=== PATIENT | male | born 1970 | race Caucasian/White ===

== ENCOUNTER 2018-08-14 00:01 | Emergency (ER) | payer BC, MEDICARE, OTHER ==
[2018-08-14] MEDS: NS 1,000 ML IV ×4 (01:00→02:00)
[2018-08-14] MEDS: HumuLIN R (REGULAR) INSULIN (NovoLIN R) **100U/ML** PER UNIT IV ×4 (01:15→02:26)
[2018-08-14 01:50] LABS: ANION GAP 13 MEQ/L (8-16); BLOOD UREA NITROGEN 21 MG/DL (7-18); CALCIUM LEVEL 8.7 MG/DL (8.5-10.1); CARBON DIOXIDE LEVEL 22 MEQ/L (21-32); CHLORIDE LEVEL 94 MEQ/L (98-107); CREATININE FOR GFR 1.41 MG/DL (0.70-1.30); GLOMERULAR FILTRATION RATE 56.6 (>56); GLUCOSE, FASTING 732 MG/DL (70-100); POTASSIUM SERUM 4.2 MEQ/L (3.5-5.1); SODIUM LEVEL 129 MEQ/L (136-145)
[2018-08-14 02:13] LABS: BEDSIDE GLUCOSE 400 MG/DL (70-105)
[2018-08-14 03:02] LABS: BEDSIDE GLUCOSE 191 MG/DL (70-105)
[2018-08-16 09:22] LABS: BEDSIDE GLUCOSE > 600 MG/DL (70-105)
== END 2018-08-14 03:12 | disposition home or self-care (01) ==
LOC: M ED 00:01
DX: E10.65 Type 1 diabetes mellitus with hyperglycemia (principal); I10 Essential (primary) hypertension; Z79.4 Long term (current) use of insulin; Z88.2 Allergy status to sulfonamides
CPT/HCPCS: 80048

== ENCOUNTER 2020-06-21 01:50 | Emergency (ER) | payer MEDICARE, BC, OTHER ==
[2020-06-21] MEDS ORDERED: ACETAMINOPHEN 325 MG TAB As Ordered ONE (23:18)
[2020-06-22] MEDS ORDERED: PROHANCE 279.3MG/ML 5ML VIAL As Ordered ONE (03:25)
[2020-06-22] MEDS ORDERED: PROHANCE 279.3MG/ML 15ML VIAL As Ordered ONE (03:25)
[2020-06-22] MEDS ORDERED: ONDANSETRON 4MG/2ML VIAL As Ordered ONE (08:01)
[2020-08-05 18:08] LABS: BASO % 0.3 % (0.0-1.0); EOS % 0.6 % (0.0-3.0); HEMATOCRIT 52.4 % (42.0-52.0); HEMOGLOBIN 18.2 g/dl (13.5-17.5); LYMPH # 0.5 10^3/uL (1.5-5.0); MEAN CORPUSCULAR HGB CONC 34.7 g/dl (32.0-36.5); MEAN CORPUSCULAR VOLUME 86.3 fl (80.0-96.0); MONO # 0.5 10^3/uL (0.0-0.8); MONO % 14.7 % (0.0-5.0); NEUTROPHILS # 2.4 10^3/uL (1.5-8.5); NEUTROPHILS % 69.1 % (36.0-66.0); RED BLOOD COUNT 6.07 10^6/uL (4.30-6.10); WHITE BLOOD COUNT 3.5 10^3/uL (4.0-10.0)
[2020-08-05 18:09] LABS: PLATELET COUNT, AUTOMATED 96 10^3/uL (150-450)
[2020-08-05 18:11] LABS: ERYTHROCYTE SEDIMENTATION RATE 3 mm/hr (0-20)
[2020-09-10 17:16] LABS: BLOOD UREA NITROGEN 10 MG/DL (7-18); CALCIUM LEVEL 8.4 MG/DL (8.5-10.1); CARBON DIOXIDE LEVEL 24 MEQ/L (21-32); CHLORIDE LEVEL 103 MEQ/L (98-107); CREATININE FOR GFR 1.16 MG/DL (0.70-1.30); GLOMERULAR FILTRATION RATE > 60.0 (>56); GLUCOSE, FASTING 159 MG/DL (70-100); POTASSIUM SERUM 3.7 MEQ/L (3.5-5.1); SODIUM LEVEL 136 MEQ/L (136-145)
[2020-09-10 17:17] LABS: ALBUMIN 3.9 GM/DL (3.2-5.2); ALT/SGPT 50 U/L (12-78); BILIRUBIN,DIRECT 0.4 MG/DL (0.0-0.2); BILIRUBIN,TOTAL 1.4 MG/DL (0.2-1.0); C REACTIVE PROTEIN QUANTITATIV 6.03 MG/DL (0.00-0.30); TOTAL PROTEIN 7.9 GM/DL (6.4-8.2)
== END 2020-06-22 10:30 | disposition home or self-care (01) ==
LOC: M ED 01:50
DX: F32.9 Major depressive disorder, single episode, unspecified (principal); Z91.14 Patient's other noncompliance with medication regimen; E11.9 Type 2 diabetes mellitus without complications; K75.81 Nonalcoholic steatohepatitis (NASH); F90.9 Attention-deficit hyperactivity disorder, unspecified type; B20 Human immunodeficiency virus [HIV] disease; Z86.14 Personal history of Methicillin resistant Staphylococcus aureus infection; Z79.899 Other long term (current) drug therapy
CPT/HCPCS: 71046; 72156; 80048; 80076; 85025; 85049; 85055; 85652; 86140; 87040; 87486; 87581; 87633; 87798; 96374; 99284; A9576; J2405

== ENCOUNTER 2021-07-03 02:52 | Emergency (ER) | payer MEDICARE, OTHER ==
[2021-07-03 02:53] VITALS: BP 118/78
== END 2021-07-03 04:32 | disposition left against medical advice (07) ==
LOC: M ED 02:52
DX: Z53.29 Procedure and treatment not carried out because of patient's decision for other reasons (principal)

== ENCOUNTER 2021-12-21 13:52 | Emergency (ER) | payer MEDICARE, OTHER ==
[~2021-12-21] VITALS: Ht 180.3 cm; Wt 101.0 kg
[2021-12-21] MEDS ORDERED: ARIP1TAB4 (14:19)
[2021-12-21] MEDS ORDERED: FREE1KIT5 (14:19)
[2021-12-21] MEDS ORDERED: VENL75CA47 (14:19)
[2021-12-21] MEDS ORDERED: LORazepam 2 MG/ML VIAL IV STA ×2 (14:38→15:35)
[2021-12-21 16:31] VITALS: BP 178/94
== END 2021-12-21 17:05 | disposition home or self-care (01) ==
LOC: EDBD 13:52 → M ED 13:52
DX: F15.10 Other stimulant abuse, uncomplicated (principal); E11.9 Type 2 diabetes mellitus without complications; B20 Human immunodeficiency virus [HIV] disease; Z88.2 Allergy status to sulfonamides; Z79.899 Other long term (current) drug therapy
CPT/HCPCS: 93041; 94760; 96374; 99285; J2060

== ENCOUNTER 2022-10-17 20:22 | Inpatient (IN) | payer OTHER, MEDICARE ==
[~2022-10-17] VITALS: Ht 177.8 cm; Wt 102.4 kg
[~2022-10-17 20:22] MED LIST: ARIP1TAB4; FREE1KIT5; VENL75CA47
[2022-10-17] MEDS ORDERED: LORazepam 2 MG/ML VIAL As Ordered ONE (20:25)
[2022-10-17] MEDS ORDERED: PROPOFOL 1,000 MG/100 ML VIAL As Ordered ONE (20:36)
[2022-10-17] MEDS ORDERED: ROCURONIUM BROMIDE 50MG/5ML VIAL IV ONE (20:40)
[2022-10-17] MEDS ORDERED: ETOMIDATE INJ 20MG/10ML VIAL IV ONE (20:40)
[2022-10-17] MEDS ORDERED: propofoL 1,000 MG in IV 1 EA IV SCH (20:40)
[2022-10-17] MEDS ORDERED: levETIRAcetam INJection 4,500 MG in D5W 100 ML IV ONE (20:45)
[2022-10-17 20:58] LABS: BASO # 0.1 10^3/uL (0.0-0.2); BASO % 0.4 % (0.0-1.0); EOS % 0.1 % (0.0-3.0); HEMATOCRIT 40.2 % (42.0-52.0); HEMOGLOBIN 12.8 g/dl (13.5-17.5); LYMPH # 1.9 10^3/uL (1.5-5.0); LYMPH % 11.8 % (24.0-44.0); MEAN CORPUSCULAR HEMOGLOBIN 26.6 pg (27.0-33.0); MEAN CORPUSCULAR HGB CONC 31.8 g/dl (32.0-36.5); MEAN CORPUSCULAR VOLUME 83.4 fl (80.0-96.0); MONO % 10.1 % (2.0-8.0); NEUTROPHILS # 11.8 10^3/uL (1.5-8.5); NEUTROPHILS % 75.7 % (36.0-66.0); PLATELET COUNT, AUTOMATED 405 10^3/uL (150-450); RED BLOOD COUNT 4.82 10^6/uL (4.30-6.10); WHITE BLOOD COUNT 15.7 10^3/uL (4.0-10.0)
[2022-10-17 21:00] LABS: ABG BASE EXCESS -5.4 (-2.0-2.0); ABG HCO3 19.2 MEQ/L (22.0-26.0); ABG O2 SATURATION 99.4 % (95.0-99.0); ABG PARTIAL PRESSURE CO2 34.9 mmHg (35.0-45.0); ABG STANDARD HCO3 20.1 MEQ/L (22.0-26.0); ABG TOTAL CO2 20.3 MEQ/L (22.0-29.0); ABG pH (ARTERIAL) 7.359 UNITS (7.350-7.450)
[2022-10-17] MEDS ORDERED: D5W IV ONE (21:00)
[2022-10-17] MEDS ORDERED: LEVETIRACETAM IV ONE (21:00)
[2022-10-17 21:09] LABS: INR 1.29; PARTIAL THROMBOPLASTIN TIME 25.1 SECONDS (24.8-34.2); PROTHROMBIN TIME 16.4 SECONDS (12.5-14.5)
[2022-10-17 21:20] LABS: ETHYL ALCOHOL (ETHANOL) 0.003 % (0.000-0.010)
[2022-10-17 21:21] LABS: ACETAMINOPHEN LEVEL < 2.0 UG/ML (10.0-20.0); BILIRUBIN,DIRECT 0.2 MG/DL (<0.4); SALICYLATE LEVEL < 3.0 MG/DL (<30)
[2022-10-17 21:25] LABS: AMPHETAMINES LEVEL URINE NEGATIVE (NEGATIVE); BARBITURATES URINE NEGATIVE (NEGATIVE); BENZODIAZEPINES URINE NEGATIVE (NEGATIVE); METHADONE URINE NEGATIVE (NEGATIVE); PHENCYCLIDINE URINE NEGATIVE (NEGATIVE)
[2022-10-17 21:26] LABS: ALKALINE PHOSPHATASE 173 U/L (46-116); ALT/SGPT 23 U/L (7.0-40); AST/SGOT 20 U/L (<34); BILIRUBIN,TOTAL 0.3 MG/DL (0.3-1.2); BLOOD UREA NITROGEN 9 MG/DL (9-23); CALCIUM LEVEL 8.9 MG/DL (8.5-10.1); CANNABINOIDS URINE NEGATIVE (NEGATIVE); CARBON DIOXIDE LEVEL 18 MMOL/L (20-31); CHLORIDE LEVEL 96 MMOL/L (98-107); CREATININE FOR GFR 0.77 MG/DL (0.70-1.30); GLOMERULAR FILTRATION RATE > 60.0 (>56); GLUCOSE, FASTING 697 MG/DL (60-100); POTASSIUM SERUM 3.6 MMOL/L (3.5-5.1); SODIUM LEVEL 136 MMOL/L (136-145); TOTAL PROTEIN 7.2 G/DL (5.7-8.2)
[2022-10-17 21:28] LABS: COCAINE METABOLITE URINE POSITIVE (NEGATIVE); OPIATES URINE POSITIVE (NEGATIVE)
[2022-10-17] MEDS ORDERED: ROCURONIUM BROMIDE 50MG/5ML VIAL IV PRN (21:40)
[2022-10-17 21:42] LABS: MONO # 1.6 10^3/uL (0.0-0.8)
[2022-10-17] MEDS ORDERED: HumuLIN R (REGULAR) INSULIN (NovoLIN R) **100U/ML** PER UNIT IV ONE (22:00)
[2022-10-17 22:01] LABS: RSV AMPLIFICATION NEGATIVE (NEGATIVE)
[2022-10-17] MEDS ORDERED: NS 2,640 ML in IV 1 EA IV ONE (22:30)
[2022-10-17 22:41] LABS: APPEARANCE, CSF CLEAR (CLEAR); COLOR, CSF COLORLESS (COLORLESS); CSF TUBE# CELL CNT TUBE 1; CSF TUBE# CELL CNT TUBE 4
[2022-10-17 23:02] LABS: CSF TUBE# TP TUBE 3; TOTAL PROTEIN,CSF 51.8 MG/DL (15-45)
[2022-10-17 23:04] LABS: CSF TUBE# GLU TUBE 3
[2022-10-17] MEDS: propofoL 1,000 MG in IV 1 EA IV SCH (23:40)
[2022-10-17] MEDS ORDERED: HOME MED LIST COMPLETE! XX SCH (23:50)
[2022-10-17] MEDS ORDERED: INSULIN REGULAR IN 0.9 % NACL 100 UNIT in IV 1 EA IV SCH ×2 (23:50)
[2022-10-17] MEDS ORDERED: KCL 20MEQ IN 0.45NS 1000ML 1,000 ML IV SCH (23:50)
[2022-10-18] VITALS (44 sets, daily range): BP systolic 91–120; BP diastolic 52–72
[2022-10-18] MEDS: PIPERACILLIN/TAZOBACTAM SOD 4.5 GM in D5W MINI-BAG PLUS 50 ML IV SCH ×4 (00:47→18:33)
[2022-10-18 01:01] LABS: ABG BASE EXCESS -0.1 (-2.0-2.0); ABG HCO3 23.8 MEQ/L (22.0-26.0); ABG O2 SATURATION 99.2 % (95.0-99.0); ABG PARTIAL PRESSURE CO2 36.3 mmHg (35.0-45.0); ABG PARTIAL PRESSURE O2 215.7 mmHg (75.0-100.0); ABG STANDARD HCO3 24.5 MEQ/L (22.0-26.0); ABG TOTAL CO2 24.9 MEQ/L (22.0-29.0); ABG pH (ARTERIAL) 7.435 UNITS (7.350-7.450)
[2022-10-18] MEDS: propofoL 1,000 MG in IV 1 EA IV SCH (01:37)
[2022-10-18] MEDS: INSULIN IV RATE CHANGE DOCUMENTATION ML/HR XX SCH ×5 (04:14→11:05)
[2022-10-18 04:33] LABS: BLOOD UREA NITROGEN 10 MG/DL (9-23); CALCIUM LEVEL 8.9 MG/DL (8.5-10.1); CARBON DIOXIDE LEVEL 13 MMOL/L (20-31); CHLORIDE LEVEL 96 MMOL/L (98-107); GLOMERULAR FILTRATION RATE > 60.0 (>56); GLUCOSE, FASTING 654 MG/DL (60-100); PHOSPHORUS LEVEL 7.1 MG/DL (2.5-4.9); POTASSIUM SERUM 3.9 MMOL/L (3.5-5.1); SODIUM LEVEL 135 MMOL/L (136-145)
[2022-10-18] MEDS: MIDAZOLAM 100MG/100ML-0.9%NACL 100 MG in IV 1 EA IV SCH (04:45)
[2022-10-18] MEDS ORDERED: MIDAZOLAM INJ 2MG/2ML VIAL IV PRN (05:25)
[2022-10-18] MEDS ORDERED: NS 500 ML IV ONE (05:25)
[2022-10-18 06:03] LABS: ABG BASE EXCESS 2.2 (-2.0-2.0); ABG HCO3 27.1 MEQ/L (22.0-26.0); ABG PARTIAL PRESSURE CO2 43.5 mmHg (35.0-45.0); ABG PARTIAL PRESSURE O2 154.3 mmHg (75.0-100.0); ABG STANDARD HCO3 26.5 MEQ/L (22.0-26.0); ABG TOTAL CO2 28.5 MEQ/L (22.0-29.0); ABG pH (ARTERIAL) 7.413 UNITS (7.350-7.450)
[2022-10-18] MEDS: HEPARIN SOD (PORCINE) 5000UNITS/ML 1ML VIAL/SYRINGE SC SCH ×3 (06:07→22:03)
[2022-10-18 06:34] LABS: BLOOD UREA NITROGEN 9 MG/DL (9-23); CALCIUM LEVEL 8.2 MG/DL (8.5-10.1); CARBON DIOXIDE LEVEL 28 MMOL/L (20-31); CHLORIDE LEVEL 106 MMOL/L (98-107); CREATININE FOR GFR 0.66 MG/DL (0.70-1.30); GLOMERULAR FILTRATION RATE > 60.0 (>56); GLUCOSE, FASTING 292 MG/DL (60-100); PHOSPHORUS LEVEL 2.4 MG/DL (2.5-4.9); POTASSIUM SERUM 2.9 MMOL/L (3.5-5.1); SODIUM LEVEL 144 MMOL/L (136-145)
[2022-10-18] MEDS: KCL 20MEQ IN 100ML SWI (KRUN) 20 MEQ in IV 1 EA IV SCH ×8 (07:07→15:18)
[2022-10-18] MEDS ORDERED: POTASSIUM PHOSPHATE INJ 15 MMOL in D5W 250 ML IV ONE (09:00)
[2022-10-18] MEDS ORDERED: CHLORHEXIDINE GLUCONATE 0.12 % 15ML UDC (PERIDEX ORAL RINSE) MT SCH (09:00)
[2022-10-18] MEDS ORDERED: levETIRAcetam INJection 500 MG in D5W MINI-BAG PLUS 100 ML IV SCH (09:00)
[2022-10-18] MEDS ORDERED: KCL 20MEQ IN D5/NS 1000ML 1,000 ML IV SCH (09:10)
[2022-10-18] MEDS: IPRATROPIUM 0.5MG/ALBUTEROL 2.5MG INH SOL UD 3ML (DUONEB) NEB SCH ×3 (09:22→23:52)
[2022-10-18] MEDS: PANTOPRAZOLE 40MG VIAL IV SCH (09:26)
[2022-10-18] MEDS ORDERED: levETIRAcetam INJection 500 MG in D5W MINI-BAG PLUS 100 ML IV ONE ×2 (10:00→20:00)
[2022-10-18 13:10] LABS: BLOOD UREA NITROGEN 8 MG/DL (9-23); CALCIUM LEVEL 7.9 MG/DL (8.5-10.1); CARBON DIOXIDE LEVEL 29 MMOL/L (20-31); CHLORIDE LEVEL 110 MMOL/L (98-107); CREATININE FOR GFR 0.66 MG/DL (0.70-1.30); GLOMERULAR FILTRATION RATE > 60.0 (>56); GLUCOSE, FASTING 191 MG/DL (60-100); PHOSPHORUS LEVEL 3.2 MG/DL (2.5-4.9); SODIUM LEVEL 146 MMOL/L (136-145)
[2022-10-18] MEDS ORDERED: GLUCAGON INJ 1MG VIAL SC PRN (13:20)
[2022-10-18] MEDS ORDERED: GLUCOSE 4GM CHEW TABLET PO PRN (13:20)
[2022-10-18] MEDS ORDERED: DEXTROSE 50% 50ML SYRINGE IV PRN (13:20)
[2022-10-18] MEDS: LEVEMIR (INSULIN DETEMIR) 1 UNITS/0.01ML SC SCH (13:42)
[2022-10-18] MEDS: KCL 20MEQ IN 0.45NS 1000ML 1,000 ML IV SCH (16:00)
[2022-10-18 16:34] LABS: BLOOD UREA NITROGEN 7 MG/DL (9-23); CALCIUM LEVEL 7.8 MG/DL (8.5-10.1); CARBON DIOXIDE LEVEL 28 MMOL/L (20-31); CHLORIDE LEVEL 106 MMOL/L (98-107); CREATININE FOR GFR 0.62 MG/DL (0.70-1.30); GLOMERULAR FILTRATION RATE > 60.0 (>56); GLUCOSE, FASTING 304 MG/DL (60-100); POTASSIUM SERUM 3.7 MMOL/L (3.5-5.1); SODIUM LEVEL 141 MMOL/L (136-145)
[2022-10-18] MEDS: INSULIN LISPRO (NovoLOG) PER UNIT SC SCH ×2 (17:29→22:04)
[2022-10-18] MEDS ORDERED: NESI25TA PO (17:47)
[2022-10-18] MEDS ORDERED: EMTR1TAB16 PO (17:47)
[2022-10-18] MEDS ORDERED: GLIP5TAB8 PO (17:47)
[2022-10-18] MEDS ORDERED: VALG450T10 PO (17:47)
[2022-10-18] MEDS ORDERED: HOME MED LIST COMPLETE! XX SCH (17:50)
[2022-10-18] MEDS ORDERED: INSULIN LISPRO (NovoLOG) PER UNIT SC SCH (18:00)
[2022-10-18] MEDS ORDERED: LORazepam 2 MG/ML VIAL IV PRN (19:40)
[2022-10-18] MEDS ORDERED: LORazepam 2 MG/ML VIAL IV STA ×3 (20:06→23:15)
[2022-10-18] MEDS: LORazepam 2 MG/ML VIAL IV PRN ×2 (20:10→22:42)
[2022-10-18] MEDS ORDERED: levETIRAcetam INJection 1,000 MG in D5W 100 ML IV SCH (21:00)
[2022-10-18] MEDS ORDERED: ACETAMINOPHEN 1000MG 100ML IV BAG IV ONE (22:00)
[2022-10-18] MEDS ORDERED: VALPROATE SOD INJ 1,000 MG in D5W 50 ML IV ONE (23:00)
[2022-10-19] VITALS (10 sets, daily range): BP systolic 97–136; BP diastolic 55–88
[2022-10-19] MEDS: MIDAZOLAM 100MG/100ML-0.9%NACL 100 MG in IV 1 EA IV SCH (01:21)
[2022-10-19] MEDS: PIPERACILLIN/TAZOBACTAM SOD 4.5 GM in D5W MINI-BAG PLUS 50 ML IV SCH ×4 (02:30→18:05)
[2022-10-19 03:14] LABS: HEMATOCRIT 28.7 % (42.0-52.0); MEAN CORPUSCULAR HEMOGLOBIN 27.1 pg (27.0-33.0); MEAN CORPUSCULAR HGB CONC 32.4 g/dl (32.0-36.5); MEAN CORPUSCULAR VOLUME 83.7 fl (80.0-96.0); PLATELET COUNT, AUTOMATED 214 10^3/uL (150-450); RED BLOOD COUNT 3.43 10^6/uL (4.30-6.10); WHITE BLOOD COUNT 7.3 10^3/uL (4.0-10.0)
[2022-10-19 03:17] LABS: HEMOGLOBIN 9.3 g/dl (13.5-17.5)
[2022-10-19 03:30] LABS: MAGNESIUM LEVEL 1.5 MG/DL (1.8-2.4)
[2022-10-19 03:32] LABS: BLOOD UREA NITROGEN 6 MG/DL (9-23); CALCIUM LEVEL 7.4 MG/DL (8.5-10.1); CARBON DIOXIDE LEVEL 28 MMOL/L (20-31); CHLORIDE LEVEL 104 MMOL/L (98-107); CREATININE FOR GFR 0.63 MG/DL (0.70-1.30); GLOMERULAR FILTRATION RATE > 60.0 (>56); GLUCOSE, FASTING 269 MG/DL (60-100); POTASSIUM SERUM 3.1 MMOL/L (3.5-5.1); SODIUM LEVEL 140 MMOL/L (136-145)
[2022-10-19 05:03] LABS: HEMOGLOBIN A1c > 14.0 % (4.0-6.0)
[2022-10-19 05:09] LABS: HEMATOCRIT 28.6 % (42.0-52.0); HEMOGLOBIN 9.3 g/dl (13.5-17.5); MEAN CORPUSCULAR HEMOGLOBIN 27.1 pg (27.0-33.0); MEAN CORPUSCULAR HGB CONC 32.5 g/dl (32.0-36.5); MEAN CORPUSCULAR VOLUME 83.4 fl (80.0-96.0); PLATELET COUNT, AUTOMATED 197 10^3/uL (150-450); RED BLOOD COUNT 3.43 10^6/uL (4.30-6.10); WHITE BLOOD COUNT 6.3 10^3/uL (4.0-10.0)
[2022-10-19] MEDS: MAG SULF 1GM/100ML (MAG RUN) 1 GM in IV 1 EA IV SCH ×2 (06:02→07:46)
[2022-10-19] MEDS: KCL 20MEQ IN 100ML SWI (KRUN) 20 MEQ in IV 1 EA IV SCH ×4 (07:46→09:02)
[2022-10-19] MEDS: INSULIN LISPRO (NovoLOG) PER UNIT SC SCH ×4 (07:47→20:30)
[2022-10-19] MEDS ORDERED: KCL 10MEQ/100ML SWI (KRUN) 10 MEQ in IV 1 EA IV ONE (08:00)
[2022-10-19] MEDS ORDERED: MAG SULF 1GM/100ML (MAG RUN) 1 GM in IV 1 EA IV ONE (08:00)
[2022-10-19] MEDS: levETIRAcetam INJection 1,250 MG in D5W 100 ML IV SCH ×2 (09:02→20:50)
[2022-10-19] MEDS: LEVEMIR (INSULIN DETEMIR) 1 UNITS/0.01ML SC SCH (09:34)
[2022-10-19] MEDS: VALPROATE SOD INJ 500 MG in D5W MINI-BAG PLUS 50 ML IV SCH ×2 (09:34→21:22)
[2022-10-19] MEDS: PANTOPRAZOLE 40MG VIAL IV SCH (09:34)
[2022-10-19] MEDS ORDERED: VANCOMYCIN HCL 1,000 MG, VIAL MATE ADAPTER 1 EACH in NS 250 ML IV ONE (10:00)
[2022-10-19] MEDS: LORazepam 2 MG/ML VIAL IV PRN ×2 (10:23→13:44)
[2022-10-19] MEDS: HEPARIN SOD (PORCINE) 5000UNITS/ML 1ML VIAL/SYRINGE SC SCH ×3 (10:26→21:22)
[2022-10-19] MEDS: IPRATROPIUM 0.5MG/ALBUTEROL 2.5MG INH SOL UD 3ML (DUONEB) NEB SCH ×2 (11:06→15:49)
[2022-10-19] MEDS: KCL 20MEQ IN 100ML SWI (KRUN) 100 ML IV SCH ×3 (11:06→12:48)
[2022-10-19] MEDS: VANCOMYCIN HCL 1,000 MG, VIAL MATE ADAPTER 1 EACH in D5W 250 ML IV SCH ×2 (11:35→19:32)
[2022-10-19] MEDS: KCL 20MEQ IN 0.45NS 1000ML 1,000 ML IV SCH ×2 (12:48→17:58)
[2022-10-19] MEDS ORDERED: OLANZapine INTRAMUSCULAR 10MG VIAL IM ONE (14:20)
[2022-10-19 15:52] LABS: ALBUMIN 1.6 G/DL (3.2-5.2); ALKALINE PHOSPHATASE 98 U/L (46-116); ALT/SGPT 18 U/L (7.0-40); AST/SGOT 21 U/L (<34); BILIRUBIN,TOTAL 0.4 MG/DL (0.3-1.2); BLOOD UREA NITROGEN < 5 MG/DL (9-23); CALCIUM LEVEL 7.6 MG/DL (8.5-10.1); CARBON DIOXIDE LEVEL 26 MMOL/L (20-31); CHLORIDE LEVEL 107 MMOL/L (98-107); CREATININE FOR GFR 0.51 MG/DL (0.70-1.30); GLOMERULAR FILTRATION RATE > 60.0 (>56); GLUCOSE, FASTING 84 MG/DL (60-100); POTASSIUM SERUM 3.4 MMOL/L (3.5-5.1); SODIUM LEVEL 142 MMOL/L (136-145)
[2022-10-19] MEDS ORDERED: POTASSIUM CHLORIDE 10MEQ SR TABLET PO SCH (16:00)
[2022-10-19] MEDS ORDERED: OLANZapine INTRAMUSCULAR 10MG VIAL IM PRN (18:20)
[2022-10-19] MEDS ORDERED: OLANZapine INTRAMUSCULAR 10MG VIAL IM SCH (21:00)
[2022-10-20] VITALS: BP 94/49
[2022-10-20] MEDS: IPRATROPIUM 0.5MG/ALBUTEROL 2.5MG INH SOL UD 3ML (DUONEB) NEB SCH ×3 (00:06→15:31)
[2022-10-20] MEDS: PIPERACILLIN/TAZOBACTAM SOD 4.5 GM in D5W MINI-BAG PLUS 50 ML IV SCH ×5 (00:14→23:51)
[2022-10-20] MEDS: KCL 20MEQ IN 0.45NS 1000ML 1,000 ML IV SCH ×2 (02:52→16:35)
[2022-10-20] MEDS: VANCOMYCIN HCL 1,000 MG, VIAL MATE ADAPTER 1 EACH in D5W 250 ML IV SCH ×3 (03:51→19:31)
[2022-10-20 04:00] VITALS: BP 111/53
[2022-10-20 05:14] LABS: HEMATOCRIT 31.6 % (42.0-52.0); HEMOGLOBIN 10.2 g/dl (13.5-17.5); MEAN CORPUSCULAR HEMOGLOBIN 26.8 pg (27.0-33.0); MEAN CORPUSCULAR HGB CONC 32.3 g/dl (32.0-36.5); MEAN CORPUSCULAR VOLUME 83.2 fl (80.0-96.0); PLATELET COUNT, AUTOMATED 225 10^3/uL (150-450); WHITE BLOOD COUNT 4.7 10^3/uL (4.0-10.0)
[2022-10-20 05:41] LABS: ABG BASE EXCESS 6.6 (-2.0-2.0); ABG HCO3 28.1 MEQ/L (22.0-26.0); ABG O2 SATURATION 95.5 % (95.0-99.0); ABG PARTIAL PRESSURE CO2 29.9 mmHg (35.0-45.0); ABG PARTIAL PRESSURE O2 69.1 mmHg (75.0-100.0); ABG STANDARD HCO3 30.4 MEQ/L (22.0-26.0); ABG pH (ARTERIAL) 7.591 UNITS (7.350-7.450)
[2022-10-20 06:01] LABS: ALBUMIN 1.6 G/DL (3.2-5.2); ALKALINE PHOSPHATASE 102 U/L (46-116); ALT/SGPT 16 U/L (7.0-40); AST/SGOT 19 U/L (<34); BILIRUBIN,TOTAL 0.4 MG/DL (0.3-1.2); BLOOD UREA NITROGEN < 5 MG/DL (9-23); CALCIUM LEVEL 7.6 MG/DL (8.5-10.1); CARBON DIOXIDE LEVEL 28 MMOL/L (20-31); CHLORIDE LEVEL 101 MMOL/L (98-107); CREATININE FOR GFR 0.57 MG/DL (0.70-1.30); GLOMERULAR FILTRATION RATE > 60.0 (>56); GLUCOSE, FASTING 224 MG/DL (60-100); POTASSIUM SERUM 3.6 MMOL/L (3.5-5.1); SODIUM LEVEL 139 MMOL/L (136-145); TOTAL PROTEIN 6.1 G/DL (5.7-8.2)
[2022-10-20] MEDS: HEPARIN SOD (PORCINE) 5000UNITS/ML 1ML VIAL/SYRINGE SC SCH ×3 (06:07→21:03)
[2022-10-20 08:00] VITALS: BP 123/75
[2022-10-20] MEDS ORDERED: VALPROATE SOD INJ 500 MG in D5W MINI-BAG PLUS 50 ML IV SCH (09:00)
[2022-10-20] MEDS: PANTOPRAZOLE 40MG VIAL IV SCH (09:17)
[2022-10-20] MEDS: LEVEMIR (INSULIN DETEMIR) 1 UNITS/0.01ML SC SCH (09:18)
[2022-10-20] MEDS: INSULIN LISPRO (NovoLOG) PER UNIT SC SCH ×4 (09:18→20:14)
[2022-10-20] MEDS: VALPROATE SOD INJ 500 MG in D5W MINI-BAG PLUS 50 ML IV SCH ×2 (09:19→20:14)
[2022-10-20] MEDS: levETIRAcetam INJection 1,250 MG in D5W 100 ML IV SCH ×2 (10:24→20:15)
[2022-10-20 12:00] VITALS: BP 110/57
[2022-10-20] MEDS: LORazepam 2 MG/ML VIAL IV PRN ×2 (12:09→12:22)
[2022-10-20] MEDS ORDERED: LORazepam 2 MG/ML VIAL IV STA ×2 (12:26)
[2022-10-20] MEDS ORDERED: FLUCONAZOLE 400 MG in IV 1 EA IV SCH (14:00)
[2022-10-20 16:00] VITALS: BP 119/63
[2022-10-20 19:08] LABS: GC DNA AMPLIFICATION NEGATIVE (NEGATIVE)
[2022-10-20 20:00] VITALS: BP 115/75
[2022-10-21] VITALS (7 sets, daily range): BP systolic 107–131; BP diastolic 58–80
[2022-10-21] MEDS: IPRATROPIUM 0.5MG/ALBUTEROL 2.5MG INH SOL UD 3ML (DUONEB) NEB SCH ×3 (00:19→16:08)
[2022-10-21] MEDS: FLUCONAZOLE 400 MG in IV 1 EA IV SCH ×2 (02:02→14:39)
[2022-10-21] MEDS: VANCOMYCIN HCL 1,000 MG, VIAL MATE ADAPTER 1 EACH in D5W 250 ML IV SCH (03:13)
[2022-10-21 04:44] LABS: HEMATOCRIT 31.4 % (42.0-52.0); HEMOGLOBIN 9.9 g/dl (13.5-17.5); MEAN CORPUSCULAR HEMOGLOBIN 26.5 pg (27.0-33.0); MEAN CORPUSCULAR HGB CONC 31.5 g/dl (32.0-36.5); PLATELET COUNT, AUTOMATED 177 10^3/uL (150-450); RED BLOOD COUNT 3.74 10^6/uL (4.30-6.10); WHITE BLOOD COUNT 3.7 10^3/uL (4.0-10.0)
[2022-10-21 05:02] LABS: ABG BASE EXCESS 7.8 (-2.0-2.0); ABG HCO3 29.1 MEQ/L (22.0-26.0); ABG O2 SATURATION 98.5 % (95.0-99.0); ABG PARTIAL PRESSURE CO2 29.8 mmHg (35.0-45.0); ABG PARTIAL PRESSURE O2 104.7 mmHg (75.0-100.0); ABG STANDARD HCO3 31.7 MEQ/L (22.0-26.0)
[2022-10-21 05:06] LABS: ABG pH (ARTERIAL) 7.608 UNITS (7.350-7.450)
[2022-10-21 05:37] LABS: ALBUMIN 1.5 G/DL (3.2-5.2); ALKALINE PHOSPHATASE 113 U/L (46-116); ALT/SGPT 13 U/L (7.0-40); AST/SGOT 14 U/L (<34); BILIRUBIN,TOTAL 0.4 MG/DL (0.3-1.2); BLOOD UREA NITROGEN < 5 MG/DL (9-23); CALCIUM LEVEL 7.1 MG/DL (8.5-10.1); CARBON DIOXIDE LEVEL 29 MMOL/L (20-31); CHLORIDE LEVEL 101 MMOL/L (98-107); CREATININE FOR GFR 0.65 MG/DL (0.70-1.30); GLOMERULAR FILTRATION RATE > 60.0 (>56); GLUCOSE, FASTING 224 MG/DL (60-100); SODIUM LEVEL 139 MMOL/L (136-145); TOTAL PROTEIN 5.9 G/DL (5.7-8.2)
[2022-10-21] MEDS: PIPERACILLIN/TAZOBACTAM SOD 4.5 GM in D5W MINI-BAG PLUS 50 ML IV SCH (06:30)
[2022-10-21] MEDS: HEPARIN SOD (PORCINE) 5000UNITS/ML 1ML VIAL/SYRINGE SC SCH ×3 (06:30→21:21)
[2022-10-21] MEDS ORDERED: KCL 10MEQ/100ML SWI (KRUN) 10 MEQ in IV 1 EA IV SCH (07:00)
[2022-10-21 08:42] LABS: MAGNESIUM LEVEL 1.6 MG/DL (1.8-2.4)
[2022-10-21] MEDS: levETIRAcetam INJection 1,250 MG in D5W 100 ML IV SCH ×2 (08:42→20:48)
[2022-10-21] MEDS: VALPROATE SOD INJ 500 MG in D5W MINI-BAG PLUS 50 ML IV SCH (08:43)
[2022-10-21] MEDS: PANTOPRAZOLE 40MG VIAL IV SCH (08:43)
[2022-10-21] MEDS: POTASSIUM CHLORIDE 10MEQ SR TABLET PO SCH ×3 (08:43→16:25)
[2022-10-21] MEDS: KCL 20MEQ IN 0.45NS 1000ML 1,000 ML IV SCH ×2 (08:44→14:39)
[2022-10-21] MEDS: LEVEMIR (INSULIN DETEMIR) 1 UNITS/0.01ML SC SCH (08:44)
[2022-10-21] MEDS: INSULIN LISPRO (NovoLOG) PER UNIT SC SCH ×4 (08:44→20:02)
[2022-10-21 09:15] LABS: VENOUS BASE EXCESS 6.8 (-2.0-2.0); VENOUS PARTIAL PRESSURE CO2 37.6 mmHg (38.0-50.0); VENOUS PARTIAL PRESSURE O2 55.1 mmHg (30.0-50.0); VENOUS STANDARD HCO3 30.5 MEQ/L; VENOUS TOTAL CO2 31.2 MEQ/L (24.0-28.0)
[2022-10-21] MEDS: MAGNESIUM OXIDE 400MG TAB (MAG-OX) PO SCH ×3 (11:17→16:24)
[2022-10-21] MEDS ORDERED: LIDOCAINE 1% MDV 20ML VIAL As Ordered ONE (11:58)
[2022-10-21] MEDS ORDERED: PROHANCE 279.3MG/ML 5ML VIAL As Ordered ONE (13:49)
[2022-10-21] MEDS ORDERED: PROHANCE 279.3MG/ML 15ML VIAL As Ordered ONE (13:49)
[2022-10-21] MEDS: SODIUM CHLORIDE 0.9% INJ 10 ML SYR IV SCH (17:37)
[2022-10-21] MEDS: MAG SULF 1GM/100ML (MAG RUN) 1 GM in IV 1 EA IV SCH ×2 (18:02→19:19)
[2022-10-21] MEDS: KCL 20MEQ IN 100ML SWI (KRUN) 20 MEQ in IV 1 EA IV SCH ×4 (18:46→20:02)
[2022-10-21] MEDS: VALPROIC ACID 250MG/5ML SOL ORAL SYRINGE *DRAW UP EXACT DOSE PO SCH (20:02)
[2022-10-22] VITALS: BP 117/70
[2022-10-22] MEDS: IPRATROPIUM 0.5MG/ALBUTEROL 2.5MG INH SOL UD 3ML (DUONEB) NEB SCH ×2 (01:03→08:07)
[2022-10-22] MEDS: FLUCONAZOLE 400 MG in IV 1 EA IV SCH ×2 (01:15→14:43)
[2022-10-22 04:00] VITALS: BP 112/64
[2022-10-22] MEDS: SODIUM CHLORIDE 0.9% INJ 10 ML SYR IV SCH ×2 (05:00→18:44)
[2022-10-22] MEDS: HEPARIN SOD (PORCINE) 5000UNITS/ML 1ML VIAL/SYRINGE SC SCH ×3 (05:01→21:01)
[2022-10-22 05:57] LABS: ABG BASE EXCESS 5.2 (-2.0-2.0); ABG HCO3 27.5 MEQ/L (22.0-26.0); ABG O2 SATURATION 93.2 % (95.0-99.0); ABG PARTIAL PRESSURE CO2 32.6 mmHg (35.0-45.0); ABG PARTIAL PRESSURE O2 60.3 mmHg (75.0-100.0); ABG STANDARD HCO3 29.1 MEQ/L (22.0-26.0); ABG TOTAL CO2 28.5 MEQ/L (22.0-29.0); ABG pH (ARTERIAL) 7.544 UNITS (7.350-7.450)
[2022-10-22] MEDS: KCL 20MEQ IN 0.45NS 1000ML 1,000 ML IV SCH (07:05)
[2022-10-22 07:15] LABS: HEMATOCRIT 33.2 % (42.0-52.0); HEMOGLOBIN 10.4 g/dl (13.5-17.5); MEAN CORPUSCULAR HEMOGLOBIN 26.7 pg (27.0-33.0); MEAN CORPUSCULAR HGB CONC 31.3 g/dl (32.0-36.5); MEAN CORPUSCULAR VOLUME 85.1 fl (80.0-96.0); PLATELET COUNT, AUTOMATED 193 10^3/uL (150-450); WHITE BLOOD COUNT 4.7 10^3/uL (4.0-10.0)
[2022-10-22 08:00] VITALS: BP 137/76
[2022-10-22 08:56] LABS: MAGNESIUM LEVEL 1.9 MG/DL (1.8-2.4)
[2022-10-22] MEDS ORDERED: LEVEMIR (INSULIN DETEMIR) 1 UNITS/0.01ML SC SCH (09:00)
[2022-10-22 09:04] LABS: ALBUMIN 1.7 G/DL (3.2-5.2); ALKALINE PHOSPHATASE 120 U/L (46-116); ALT/SGPT 12 U/L (7.0-40); AST/SGOT 13 U/L (<34); BILIRUBIN,TOTAL 0.3 MG/DL (0.3-1.2); BLOOD UREA NITROGEN < 5 MG/DL (9-23); CALCIUM LEVEL 7.5 MG/DL (8.5-10.1); CARBON DIOXIDE LEVEL 28 MMOL/L (20-31); CHLORIDE LEVEL 105 MMOL/L (98-107); CREATININE FOR GFR 0.62 MG/DL (0.70-1.30); GLOMERULAR FILTRATION RATE > 60.0 (>56); GLUCOSE, FASTING 263 MG/DL (60-100); POTASSIUM SERUM 3.3 MMOL/L (3.5-5.1); SODIUM LEVEL 141 MMOL/L (136-145); TOTAL PROTEIN 6.1 G/DL (5.7-8.2)
[2022-10-22] MEDS: INSULIN LISPRO (NovoLOG) PER UNIT SC SCH ×4 (09:33→20:41)
[2022-10-22] MEDS: PANTOPRAZOLE 40MG VIAL IV SCH (10:20)
[2022-10-22] MEDS: VALPROIC ACID 250MG/5ML SOL ORAL SYRINGE *DRAW UP EXACT DOSE PO SCH ×2 (10:20→20:50)
[2022-10-22] MEDS: levETIRAcetam INJection 1,250 MG in D5W 100 ML IV SCH (10:21)
[2022-10-22 12:00] VITALS: BP 117/65
[2022-10-22] MEDS: POTASSIUM CHLORIDE 10MEQ SR TABLET PO SCH ×2 (14:44→20:50)
[2022-10-22] MEDS ORDERED: LEVEMIR (INSULIN DETEMIR) 1 UNITS/0.01ML SC STA (15:23)
[2022-10-22 16:00] VITALS: BP 107/56
[2022-10-22 20:26] VITALS: BP 109/72
[2022-10-22] MEDS: levETIRAcetam 250MG TABLET (KEPPRA) PO SCH (20:50)
[2022-10-23] VITALS (8 sets, daily range): BP systolic 101–123; BP diastolic 55–89
[2022-10-23] MEDS: FLUCONAZOLE 400 MG in IV 1 EA IV SCH ×2 (02:09→15:40)
[2022-10-23] MEDS: KCL 20MEQ IN 0.45NS 1000ML 1,000 ML IV SCH (02:10)
[2022-10-23 04:51] LABS: HEMATOCRIT 30.1 % (42.0-52.0); HEMOGLOBIN 9.5 g/dl (13.5-17.5); MEAN CORPUSCULAR HEMOGLOBIN 27.1 pg (27.0-33.0); MEAN CORPUSCULAR HGB CONC 31.6 g/dl (32.0-36.5); PLATELET COUNT, AUTOMATED 184 10^3/uL (150-450); WHITE BLOOD COUNT 4.3 10^3/uL (4.0-10.0)
[2022-10-23 05:15] LABS: MAGNESIUM LEVEL 1.7 MG/DL (1.8-2.4)
[2022-10-23] MEDS: HEPARIN SOD (PORCINE) 5000UNITS/ML 1ML VIAL/SYRINGE SC SCH (05:28)
[2022-10-23] MEDS: SODIUM CHLORIDE 0.9% INJ 10 ML SYR IV SCH ×2 (05:29→17:03)
[2022-10-23 05:32] LABS: ALBUMIN 1.7 G/DL (3.2-5.2); ALKALINE PHOSPHATASE 99 U/L (46-116); ALT/SGPT < 9 U/L (7.0-40); AST/SGOT 11 U/L (<34); BILIRUBIN,TOTAL 0.3 MG/DL (0.3-1.2); BLOOD UREA NITROGEN < 5 MG/DL (9-23); CALCIUM LEVEL 7.2 MG/DL (8.5-10.1); CARBON DIOXIDE LEVEL 26 MMOL/L (20-31); CHLORIDE LEVEL 106 MMOL/L (98-107); CREATININE FOR GFR 0.55 MG/DL (0.70-1.30); GLOMERULAR FILTRATION RATE > 60.0 (>56); GLUCOSE, FASTING 187 MG/DL (60-100); POTASSIUM SERUM 5.1 MMOL/L (3.5-5.1); SODIUM LEVEL 137 MMOL/L (136-145)
[2022-10-23] MEDS ORDERED: MAG SULF 1GM/100ML (MAG RUN) 1 GM in IV 1 EA IV ONE (06:00)
[2022-10-23 06:06] LABS: ABG BASE EXCESS 5.4 (-2.0-2.0); ABG HCO3 27.6 MEQ/L (22.0-26.0); ABG PARTIAL PRESSURE O2 70.3 mmHg (75.0-100.0); ABG STANDARD HCO3 29.3 MEQ/L (22.0-26.0); ABG TOTAL CO2 28.5 MEQ/L (22.0-29.0); ABG pH (ARTERIAL) 7.553 UNITS (7.350-7.450)
[2022-10-23] MEDS: INSULIN LISPRO (NovoLOG) PER UNIT SC SCH ×4 (08:34→21:00)
[2022-10-23] MEDS: levETIRAcetam 250MG TABLET (KEPPRA) PO SCH ×2 (08:35→20:40)
[2022-10-23] MEDS: VALPROIC ACID 250MG/5ML SOL ORAL SYRINGE *DRAW UP EXACT DOSE PO SCH ×2 (08:35→20:45)
[2022-10-23] MEDS ORDERED: LEVEMIR (INSULIN DETEMIR) 1 UNITS/0.01ML SC SCH (09:00)
[2022-10-23] MEDS ORDERED: ATOVAQUONE SUSP 750MG/5ML 210 ML BTL PO SCH (09:00)
[2022-10-23 10:08] LABS: % CD8 Pos Lymph 60.6 % (12.0-35.5); %CD4 Pos Lymphs 13.2 % (30.8-58.5); ABS Lymphs 0.8 x10E3/uL (0.7-3.1); ABS Monocytes 0.4 x10E3/uL (0.1-0.9); ABS Neutophils 2.4 x10E3/uL (1.4-7.0); Abs CD4 Helper 106 /uL (359-1519); Abs CD8 Suppres 485 /uL (109-897); CD4/CD8 Ratio 0.22 (0.92-3.72); Eosinophils 1 % (Not Estab.); HCT 30.2 % (37.5-51.0); HGB 10.2 g/dL (13.0-17.7); HIV-1 RNA PCR QUANT 2 LC550285 68600 copies/mL (.); HIV-1 RNA PCR QUANT 3 LC550285 4.836 (.); Immature Grans 1 % (Not Estab.); Lymphocytes 21 % (Not Estab.); MCHC 33.8 g/dL (31.5-35.7); MCV 80 fL (79-97); Monocytes 11 % (Not Estab.); Neutrophils 66 % (Not Estab.); Platelets 169 x10E3/uL (150-450); RBC 3.78 x10E6/uL (4.14-5.80); WBC 3.6 x10E3/uL (3.4-10.8)
[2022-10-23] MEDS: cefTRIAXone SOD 2 GM in D5W MINI-BAG PLUS 50 ML IV SCH (14:45)
[2022-10-23] MEDS: metroNIDAZOLE (FLAGYL) 500MG TABLET PO SCH ×2 (17:03→22:02)
[2022-10-23 17:57] LABS: HEPATITIS B SURFACE ANTIGEN NEGATIVE (NEGATIVE)
[2022-10-23 18:18] LABS: HEPATITIS C VIRUS ABY INDEX 0.2 INDEX (<0.8)
[2022-10-23] MEDS: BIKTARVY 50 MG/200 MG/25 MG TAB (PATIENT'S OWN MED) PO SCH (20:42)
[2022-10-23 20:53] LABS: HEPATITIS B SURFACE ANTIBODY NEGATIVE (POSITIVE)
[2022-10-24] MEDS: FLUCONAZOLE 400 MG in IV 1 EA IV SCH ×2 (02:17→16:19)
[2022-10-24 04:16] VITALS: BP 99/66
[2022-10-24 04:43] LABS: HEMATOCRIT 31.6 % (42.0-52.0); HEMOGLOBIN 9.9 g/dl (13.5-17.5); MEAN CORPUSCULAR HEMOGLOBIN 26.7 pg (27.0-33.0); MEAN CORPUSCULAR HGB CONC 31.3 g/dl (32.0-36.5); MEAN CORPUSCULAR VOLUME 85.2 fl (80.0-96.0); PLATELET COUNT, AUTOMATED 182 10^3/uL (150-450); RED BLOOD COUNT 3.71 10^6/uL (4.30-6.10); WHITE BLOOD COUNT 4.8 10^3/uL (4.0-10.0)
[2022-10-24 04:59] LABS: ALBUMIN 1.7 G/DL (3.2-5.2); ALKALINE PHOSPHATASE 116 U/L (46-116); ALT/SGPT < 9 U/L (7.0-40); AST/SGOT 11 U/L (<34); BILIRUBIN,TOTAL 0.3 MG/DL (0.3-1.2); BLOOD UREA NITROGEN < 5 MG/DL (9-23); CALCIUM LEVEL 7.6 MG/DL (8.5-10.1); CARBON DIOXIDE LEVEL 28 MMOL/L (20-31); CHLORIDE LEVEL 103 MMOL/L (98-107); CREATININE FOR GFR 0.67 MG/DL (0.70-1.30); GLOMERULAR FILTRATION RATE > 60.0 (>56); GLUCOSE, FASTING 314 MG/DL (60-100); POTASSIUM SERUM 3.6 MMOL/L (3.5-5.1); SODIUM LEVEL 138 MMOL/L (136-145); TOTAL PROTEIN 6.6 G/DL (5.7-8.2)
[2022-10-24] MEDS: metroNIDAZOLE (FLAGYL) 500MG TABLET PO SCH ×3 (05:07→21:17)
[2022-10-24] MEDS: SODIUM CHLORIDE 0.9% INJ 10 ML SYR IV SCH ×2 (05:08→17:19)
[2022-10-24 05:46] LABS: ABG HCO3 24.2 MEQ/L (22.0-26.0); ABG O2 SATURATION 97.7 % (95.0-99.0); ABG PARTIAL PRESSURE CO2 29.8 mmHg (35.0-45.0); ABG PARTIAL PRESSURE O2 95.2 mmHg (75.0-100.0); ABG STANDARD HCO3 26.2 MEQ/L (22.0-26.0); ABG TOTAL CO2 25.1 MEQ/L (22.0-29.0); ABG pH (ARTERIAL) 7.527 UNITS (7.350-7.450)
[2022-10-24 08:00] VITALS: BP 129/69
[2022-10-24] MEDS: VALPROIC ACID 250MG/5ML SOL ORAL SYRINGE *DRAW UP EXACT DOSE PO SCH (08:10)
[2022-10-24] MEDS: levETIRAcetam 250MG TABLET (KEPPRA) PO SCH ×2 (08:10→20:20)
[2022-10-24] MEDS: BACTRIM 160MG/800MG DS TAB PO SCH (08:10)
[2022-10-24] MEDS: INSULIN LISPRO (NovoLOG) PER UNIT SC SCH ×4 (08:11→20:37)
[2022-10-24] MEDS: PANTOPRAZOLE 40MG TAB (PROTONIX) PO SCH (09:00)
[2022-10-24] MEDS: MOM 30ML SUSPENSION UDC PO SCH (09:00)
[2022-10-24] MEDS ORDERED: LEVEMIR (INSULIN DETEMIR) 1 UNITS/0.01ML SC SCH (09:00)
[2022-10-24] MEDS ORDERED: ISOVUE-370 76% 100ML VIAL As Ordered ONE (09:55)
[2022-10-24 12:00] VITALS: BP 115/74
[2022-10-24] MEDS ORDERED: BISACODYL 10MG SUPP PR PRN (12:45)
[2022-10-24] MEDS ORDERED: LEVALBUTEROL 1.25MG 0.5ML CONCENTRATE NEB NEB PRN (12:45)
[2022-10-24] MEDS ORDERED: ONDANSETRON 4MG 2ML VIAL IV PRN (12:45)
[2022-10-24] MEDS: KETOROLAC 30 MG/ML 1ML VIAL IV SCH ×2 (13:00→18:23)
[2022-10-24] MEDS: LEVALBUTEROL 1.25MG 0.5ML CONCENTRATE NEB NEB SCH ×2 (13:27→20:50)
[2022-10-24] MEDS ORDERED: LIDOCAINE 1% MDV 20ML VIAL As Ordered ONE (15:09)
[2022-10-24 16:00] VITALS: BP 104/67
[2022-10-24] MEDS: cefTRIAXone SOD 2 GM in D5W MINI-BAG PLUS 50 ML IV SCH (16:19)
[2022-10-24 16:36] LABS: APPEARANCE, BODY FLUID TURBID (CLEAR); PLEURAL FL COLOR BROWN (COLORLESS); SOURCE, BODY FLUID PLEURAL
[2022-10-24 16:40] LABS: SOURCE, BODY FLUID pH PLEURAL
[2022-10-24 16:53] LABS: SOURCE, BODY FLUID ALBUMIN PLEURAL
[2022-10-24 16:58] LABS: SOURCE, BODY FLUID TRIG PLEURAL; TRIGLYCERIDE, BODY FLUID 63 MG/DL (NOT ESTABLISHED)
[2022-10-24 16:59] LABS: SOURCE, BODY FLUID GLUCOSE PLEURAL
[2022-10-24 17:00] LABS: AMYLASE, BODY FLUID 21 U/L (NOT ESTABLISHED); SOURCE, BODY FLUID AMYLASE PLEURAL
[2022-10-24 17:01] LABS: CHOLESTEROL, BODY FLUID 60 MG/DL (NOT ESTABLISHED); SOURCE, BODY FLUID CHOL PLEURAL; SOURCE, BODY FLUID TOT PROTEIN PLEURAL; TOTAL PROTEIN, BODY FLUID 4.2 G/DL (NOT ESTABLISHED)
[2022-10-24 17:10] LABS: LDH, BODY FLUID > 700 U/L (NOT ESTABLISHED); SOURCE, BODY FLUID LDH PLEURAL
[2022-10-24 20:00] VITALS: BP 129/69
[2022-10-24] MEDS: BIKTARVY 50 MG/200 MG/25 MG TAB (PATIENT'S OWN MED) PO SCH (20:20)
[2022-10-24] MEDS: VALPROIC ACID 250MG CAP PO SCH (20:21)
[2022-10-24] MEDS: PERCOCET 5MG/325MG TAB PO PRN (20:22)
[2022-10-24] MEDS: DOCUSATE SODIUM 100MG CAPSULE PO SCH (20:27)
[2022-10-25] VITALS: BP 90/55
[2022-10-25] MEDS: KETOROLAC 30 MG/ML 1ML VIAL IV SCH ×4 (00:25→18:07)
[2022-10-25] MEDS: FLUCONAZOLE 400 MG in IV 1 EA IV SCH ×2 (02:07→14:31)
[2022-10-25] MEDS: LEVALBUTEROL 1.25MG 0.5ML CONCENTRATE NEB NEB SCH ×4 (02:11→20:18)
[2022-10-25 04:00] VITALS: BP 100/57
[2022-10-25] MEDS: metroNIDAZOLE (FLAGYL) 500MG TABLET PO SCH ×3 (05:50→21:23)
[2022-10-25] MEDS: SODIUM CHLORIDE 0.9% INJ 10 ML SYR IV SCH ×2 (05:50→18:07)
[2022-10-25 05:52] LABS: HEMATOCRIT 27.6 % (42.0-52.0); HEMOGLOBIN 8.7 g/dl (13.5-17.5); MEAN CORPUSCULAR HEMOGLOBIN 27.2 pg (27.0-33.0); MEAN CORPUSCULAR HGB CONC 31.5 g/dl (32.0-36.5); MEAN CORPUSCULAR VOLUME 86.3 fl (80.0-96.0); PLATELET COUNT, AUTOMATED 168 10^3/uL (150-450); WHITE BLOOD COUNT 5.1 10^3/uL (4.0-10.0)
[2022-10-25 06:08] LABS: HEPATITIS A IgG TOTAL Negative (Negative); HEPATITIS B CORE ANTIBODY IGG Negative (Negative)
[2022-10-25 06:11] LABS: ALBUMIN 1.5 G/DL (3.2-5.2); ALKALINE PHOSPHATASE 108 U/L (46-116); ALT/SGPT < 9 U/L (7.0-40); AST/SGOT 10 U/L (<34); BILIRUBIN,TOTAL 0.2 MG/DL (0.3-1.2); BLOOD UREA NITROGEN 10 MG/DL (9-23); CALCIUM LEVEL 7.5 MG/DL (8.5-10.1); CARBON DIOXIDE LEVEL 24 MMOL/L (20-31); CHLORIDE LEVEL 100 MMOL/L (98-107); CREATININE FOR GFR 0.83 MG/DL (0.70-1.30); GLOMERULAR FILTRATION RATE > 60.0 (>56); GLUCOSE, FASTING 288 MG/DL (60-100); SODIUM LEVEL 135 MMOL/L (136-145); TOTAL PROTEIN 5.6 G/DL (5.7-8.2)
[2022-10-25] MEDS: MAG SULF 1GM/100ML (MAG RUN) 1 GM in IV 1 EA IV SCH ×2 (06:34→09:15)
[2022-10-25 08:00] VITALS: BP 111/68
[2022-10-25 08:42] LABS: LDH LACTATE DEHYDROGENASE 158 U/L (120-246)
[2022-10-25] MEDS ORDERED: LEVEMIR (INSULIN DETEMIR) 1 UNITS/0.01ML SC SCH (09:00)
[2022-10-25] MEDS: MOM 30ML SUSPENSION UDC PO SCH (09:00)
[2022-10-25] MEDS: DOCUSATE SODIUM 100MG CAPSULE PO SCH ×2 (09:00→21:22)
[2022-10-25] MEDS: INSULIN LISPRO (NovoLOG) PER UNIT SC SCH ×4 (09:14→20:37)
[2022-10-25] MEDS: levETIRAcetam 250MG TABLET (KEPPRA) PO SCH ×2 (09:14→21:24)
[2022-10-25] MEDS: VALPROIC ACID 250MG CAP PO SCH ×2 (09:14→21:23)
[2022-10-25] MEDS: BACTRIM 160MG/800MG DS TAB PO SCH (09:14)
[2022-10-25] MEDS: PANTOPRAZOLE 40MG TAB (PROTONIX) PO SCH (09:15)
[2022-10-25] MEDS ORDERED: ALTEPLASE 2MG/2ML VIAL XX ONE (11:00)
[2022-10-25 12:00] VITALS: BP 102/66
[2022-10-25] MEDS ORDERED: LEVEMIR (INSULIN DETEMIR) 1 UNITS/0.01ML SC ONE ×2 (13:30→14:30)
[2022-10-25] MEDS: cefTRIAXone SOD 2 GM in D5W MINI-BAG PLUS 50 ML IV SCH (13:43)
[2022-10-25] MEDS: PERCOCET 5MG/325MG TAB PO PRN (13:46)
[2022-10-25 16:00] VITALS: BP 100/56
[2022-10-25] MEDS ORDERED: NS 1,000 ML IV ONE (16:00)
[2022-10-25 20:00] VITALS: BP 93/55
[2022-10-25] MEDS: BIKTARVY 50 MG/200 MG/25 MG TAB (PATIENT'S OWN MED) PO SCH (21:25)
[2022-10-25] MEDS: HEPARIN SOD (PORCINE) 5000UNITS/ML 1ML VIAL/SYRINGE SQ SCH (21:25)
[2022-10-26] VITALS (9 sets, daily range): BP systolic 85–106; BP diastolic 50–59
[2022-10-26] MEDS: KETOROLAC 30 MG/ML 1ML VIAL IV SCH ×4 (01:25→18:26)
[2022-10-26] MEDS: FLUCONAZOLE 400 MG in IV 1 EA IV SCH (01:25)
[2022-10-26] MEDS: LEVALBUTEROL 1.25MG 0.5ML CONCENTRATE NEB NEB SCH ×4 (02:00→19:32)
[2022-10-26] MEDS: HEPARIN SOD (PORCINE) 5000UNITS/ML 1ML VIAL/SYRINGE SQ SCH ×3 (05:14→21:28)
[2022-10-26] MEDS: metroNIDAZOLE (FLAGYL) 500MG TABLET PO SCH ×3 (05:14→21:33)
[2022-10-26] MEDS: SODIUM CHLORIDE 0.9% INJ 10 ML SYR IV SCH ×2 (05:15→18:26)
[2022-10-26 05:36] LABS: HEMATOCRIT 27.1 % (42.0-52.0); HEMOGLOBIN 8.5 g/dl (13.5-17.5); MEAN CORPUSCULAR HEMOGLOBIN 26.4 pg (27.0-33.0); MEAN CORPUSCULAR HGB CONC 31.4 g/dl (32.0-36.5); MEAN CORPUSCULAR VOLUME 84.2 fl (80.0-96.0); PLATELET COUNT, AUTOMATED 150 10^3/uL (150-450); RED BLOOD COUNT 3.22 10^6/uL (4.30-6.10); WHITE BLOOD COUNT 7.5 10^3/uL (4.0-10.0)
[2022-10-26 07:11] LABS: ALBUMIN 1.4 G/DL (3.2-5.2); ALKALINE PHOSPHATASE 123 U/L (46-116); ALT/SGPT < 9 U/L (7.0-40); AST/SGOT 15 U/L (<34); BILIRUBIN,TOTAL 0.2 MG/DL (0.3-1.2); BLOOD UREA NITROGEN 9 MG/DL (9-23); CALCIUM LEVEL 7.2 MG/DL (8.5-10.1); CARBON DIOXIDE LEVEL 21 MMOL/L (20-31); CHLORIDE LEVEL 105 MMOL/L (98-107); CREATININE FOR GFR 0.66 MG/DL (0.70-1.30); GLOMERULAR FILTRATION RATE > 60.0 (>56); GLUCOSE, FASTING 197 MG/DL (60-100); POTASSIUM SERUM 4.3 MMOL/L (3.5-5.1); SODIUM LEVEL 137 MMOL/L (136-145); TOTAL PROTEIN 5.5 G/DL (5.7-8.2)
[2022-10-26 07:52] LABS: VENOUS BASE EXCESS 3.1 (-2.0-2.0); VENOUS HCO3 24.9 MEQ/L (23.0-27.0); VENOUS O2 SATURATION 99.2 % (60.0-80.0); VENOUS PARTIAL PRESSURE CO2 28.8 mmHg (38.0-50.0); VENOUS PARTIAL PRESSURE O2 158.4 mmHg (30.0-50.0); VENOUS PH 7.555 UNITS (7.330-7.430); VENOUS STANDARD HCO3 27.3 MEQ/L; VENOUS TOTAL CO2 25.8 MEQ/L (24.0-28.0)
[2022-10-26] MEDS: BACTRIM 160MG/800MG DS TAB PO SCH (08:57)
[2022-10-26] MEDS: VALPROIC ACID 250MG CAP PO SCH ×2 (08:57→20:28)
[2022-10-26] MEDS: PANTOPRAZOLE 40MG TAB (PROTONIX) PO SCH (08:57)
[2022-10-26] MEDS: levETIRAcetam 250MG TABLET (KEPPRA) PO SCH ×2 (08:57→20:28)
[2022-10-26] MEDS: DOCUSATE SODIUM 100MG CAPSULE PO SCH ×2 (08:57→20:27)
[2022-10-26] MEDS: MOM 30ML SUSPENSION UDC PO SCH (08:58)
[2022-10-26] MEDS: INSULIN LISPRO (NovoLOG) PER UNIT SC SCH ×4 (08:58→20:32)
[2022-10-26] MEDS ORDERED: LEVEMIR (INSULIN DETEMIR) 1 UNITS/0.01ML SC SCH (09:00)
[2022-10-26] MEDS ORDERED: ALTEPLASE 2MG/2ML VIAL XX ONE (10:05)
[2022-10-26] MEDS: cefTRIAXone SOD 2 GM in D5W MINI-BAG PLUS 50 ML IV SCH (14:10)
[2022-10-26] MEDS ORDERED: NS 1,000 ML IV ONE (16:35)
[2022-10-26 16:56] LABS: HEMATOCRIT 25.8 % (42.0-52.0); HEMOGLOBIN 8.2 g/dl (13.5-17.5); MEAN CORPUSCULAR HEMOGLOBIN 26.7 pg (27.0-33.0); MEAN CORPUSCULAR HGB CONC 31.8 g/dl (32.0-36.5); PLATELET COUNT, AUTOMATED 154 10^3/uL (150-450); RED BLOOD COUNT 3.07 10^6/uL (4.30-6.10); WHITE BLOOD COUNT 6.9 10^3/uL (4.0-10.0)
[2022-10-26 17:22] LABS: BLOOD UREA NITROGEN 9 MG/DL (9-23); CALCIUM LEVEL 7.5 MG/DL (8.5-10.1); CARBON DIOXIDE LEVEL 26 MMOL/L (20-31); CHLORIDE LEVEL 103 MMOL/L (98-107); CREATININE FOR GFR 0.71 MG/DL (0.70-1.30); GLOMERULAR FILTRATION RATE > 60.0 (>56); GLUCOSE, FASTING 128 MG/DL (60-100); POTASSIUM SERUM 3.9 MMOL/L (3.5-5.1); SODIUM LEVEL 136 MMOL/L (136-145)
[2022-10-26] MEDS: PERCOCET 5MG/325MG TAB PO PRN (20:29)
[2022-10-26] MEDS: BIKTARVY 50 MG/200 MG/25 MG TAB (PATIENT'S OWN MED) PO SCH (20:30)
[2022-10-26 23:06] LABS: CRYPTOCOCCUS ANTIBODY SERUM Negative (Neg:<1:2); CRYPTOCOCCUS ANTIGEN SER Negative (Negative)
[2022-10-27] VITALS (11 sets, daily range): BP systolic 90–119; BP diastolic 50–76
[2022-10-27] MEDS ORDERED: NS 500 ML IV ONE (00:45)
[2022-10-27] MEDS: KETOROLAC 30 MG/ML 1ML VIAL IV SCH ×4 (00:52→18:34)
[2022-10-27] MEDS: LEVALBUTEROL 1.25MG 0.5ML CONCENTRATE NEB NEB SCH ×4 (01:52→19:26)
[2022-10-27] MEDS ORDERED: FLUCONAZOLE 200 MG in IV 1 EA IV SCH ×2 (02:00→03:00)
[2022-10-27] MEDS: PERCOCET 5MG/325MG TAB PO PRN ×3 (04:32→20:54)
[2022-10-27] MEDS: SODIUM CHLORIDE 0.9% INJ 10 ML SYR IV PRN (05:24)
[2022-10-27] MEDS: SODIUM CHLORIDE 0.9% INJ 10 ML SYR IV SCH ×2 (05:24→18:34)
[2022-10-27] MEDS: HEPARIN SOD (PORCINE) 5000UNITS/ML 1ML VIAL/SYRINGE SQ SCH ×3 (05:24→21:27)
[2022-10-27] MEDS: metroNIDAZOLE (FLAGYL) 500MG TABLET PO SCH ×3 (05:25→21:27)
[2022-10-27 05:42] LABS: BASO % 0.4 % (0.0-1.0); EOS % 0.4 % (0.0-3.0); HEMATOCRIT 25.4 % (42.0-52.0); LYMPH # 0.8 10^3/uL (1.5-5.0); LYMPH % 16.3 % (24.0-44.0); MEAN CORPUSCULAR HEMOGLOBIN 26.9 pg (27.0-33.0); MEAN CORPUSCULAR HGB CONC 31.5 g/dl (32.0-36.5); MEAN CORPUSCULAR VOLUME 85.5 fl (80.0-96.0); MONO # 0.7 10^3/uL (0.0-0.8); MONO % 13.6 % (2.0-8.0); NEUTROPHILS # 3.3 10^3/uL (1.5-8.5); NEUTROPHILS % 64.8 % (36.0-66.0); PLATELET COUNT, AUTOMATED 158 10^3/uL (150-450); RED BLOOD COUNT 2.97 10^6/uL (4.30-6.10); WHITE BLOOD COUNT 5.1 10^3/uL (4.0-10.0)
[2022-10-27 06:30] LABS: ALBUMIN 1.3 G/DL (3.2-5.2); ALKALINE PHOSPHATASE 119 U/L (46-116); ALT/SGPT < 9 U/L (7.0-40); AST/SGOT 15 U/L (<34); BILIRUBIN,TOTAL < 0.2 MG/DL (0.3-1.2); BLOOD UREA NITROGEN 12 MG/DL (9-23); CALCIUM LEVEL 6.9 MG/DL (8.5-10.1); CARBON DIOXIDE LEVEL 22 MMOL/L (20-31); CHLORIDE LEVEL 107 MMOL/L (98-107); CREATININE FOR GFR 0.65 MG/DL (0.70-1.30); GLOMERULAR FILTRATION RATE > 60.0 (>56); GLUCOSE, FASTING 206 MG/DL (60-100); POTASSIUM SERUM 4.1 MMOL/L (3.5-5.1); SODIUM LEVEL 141 MMOL/L (136-145); TOTAL PROTEIN 5.2 G/DL (5.7-8.2)
[2022-10-27] MEDS: LEVEMIR (INSULIN DETEMIR) 1 UNITS/0.01ML SC SCH (08:56)
[2022-10-27] MEDS: INSULIN LISPRO (NovoLOG) PER UNIT SC SCH ×4 (08:57→20:55)
[2022-10-27] MEDS: PANTOPRAZOLE 40MG TAB (PROTONIX) PO SCH (08:57)
[2022-10-27] MEDS: levETIRAcetam 250MG TABLET (KEPPRA) PO SCH ×2 (08:57→20:53)
[2022-10-27] MEDS: BACTRIM 160MG/800MG DS TAB PO SCH (08:58)
[2022-10-27] MEDS: VALPROIC ACID 250MG CAP PO SCH ×2 (08:58→20:54)
[2022-10-27] MEDS: DOCUSATE SODIUM 100MG CAPSULE PO SCH (09:00)
[2022-10-27] MEDS: MOM 30ML SUSPENSION UDC PO SCH (09:00)
[2022-10-27] MEDS: cefTRIAXone SOD 2 GM in D5W MINI-BAG PLUS 50 ML IV SCH (14:24)
[2022-10-27] MEDS ORDERED: FLUCONAZOLE 400 MG in IV 1 EA IV SCH (15:00)
[2022-10-27] MEDS ORDERED: DOCUSATE SODIUM 100MG CAPSULE PO PRN (19:15)
[2022-10-27] MEDS ORDERED: MOM 30ML SUSPENSION UDC PO PRN (19:15)
[2022-10-27] MEDS: BIKTARVY 50 MG/200 MG/25 MG TAB (PATIENT'S OWN MED) PO SCH (20:52)
[2022-10-28 00:15] VITALS: BP 93/57
[2022-10-28] MEDS: KETOROLAC 30 MG/ML 1ML VIAL IV SCH ×4 (00:18→18:24)
[2022-10-28] MEDS: LEVALBUTEROL 1.25MG 0.5ML CONCENTRATE NEB NEB SCH ×4 (02:00→19:25)
[2022-10-28 04:00] VITALS: BP 109/68
[2022-10-28] MEDS: HEPARIN SOD (PORCINE) 5000UNITS/ML 1ML VIAL/SYRINGE SQ SCH ×3 (05:03→21:20)
[2022-10-28] MEDS: SODIUM CHLORIDE 0.9% INJ 10 ML SYR IV SCH ×2 (05:03→17:31)
[2022-10-28] MEDS: metroNIDAZOLE (FLAGYL) 500MG TABLET PO SCH ×3 (05:03→21:20)
[2022-10-28 05:18] LABS: BASO % 0.6 % (0.0-1.0); EOS % 0.9 % (0.0-3.0); HEMATOCRIT 24.8 % (42.0-52.0); HEMOGLOBIN 7.8 g/dl (13.5-17.5); LYMPH # 0.9 10^3/uL (1.5-5.0); LYMPH % 27.4 % (24.0-44.0); MEAN CORPUSCULAR HEMOGLOBIN 26.9 pg (27.0-33.0); MEAN CORPUSCULAR HGB CONC 31.5 g/dl (32.0-36.5); MEAN CORPUSCULAR VOLUME 85.5 fl (80.0-96.0); MONO # 0.5 10^3/uL (0.0-0.8); MONO % 15.9 % (2.0-8.0); NEUTROPHILS # 1.6 10^3/uL (1.5-8.5); NEUTROPHILS % 48.3 % (36.0-66.0); PLATELET COUNT, AUTOMATED 159 10^3/uL (150-450); WHITE BLOOD COUNT 3.2 10^3/uL (4.0-10.0)
[2022-10-28 05:50] LABS: ALBUMIN 1.5 G/DL (3.2-5.2); ALKALINE PHOSPHATASE 140 U/L (46-116); ALT/SGPT < 9 U/L (7.0-40); AST/SGOT 13 U/L (<34); BILIRUBIN,TOTAL < 0.2 MG/DL (0.3-1.2); BLOOD UREA NITROGEN 10 MG/DL (9-23); CALCIUM LEVEL 7.5 MG/DL (8.5-10.1); CARBON DIOXIDE LEVEL 27 MMOL/L (20-31); CHLORIDE LEVEL 108 MMOL/L (98-107); CREATININE FOR GFR 0.66 MG/DL (0.70-1.30); GLOMERULAR FILTRATION RATE > 60.0 (>56); GLUCOSE, FASTING 141 MG/DL (60-100); POTASSIUM SERUM 3.8 MMOL/L (3.5-5.1); SODIUM LEVEL 140 MMOL/L (136-145); TOTAL PROTEIN 5.9 G/DL (5.7-8.2)
[2022-10-28 08:06] LABS: TOTAL IRON BINDING CAPACITY 372 UG/DL (250-425)
[2022-10-28 08:08] LABS: IRON (FE) 35 UG/DL (65-175); PERCENT SATURATION 9.4 % (19.7-50.0)
[2022-10-28 08:09] LABS: FERRITIN 321.5 NG/ML (10.5-307.3); FOLATE 10.69 NG/ML (>5.4)
[2022-10-28 08:11] LABS: VITAMIN B12 LEVEL 539 PG/ML (211-911)
[2022-10-28] MEDS: LEVEMIR (INSULIN DETEMIR) 1 UNITS/0.01ML SC SCH (09:17)
[2022-10-28] MEDS: INSULIN LISPRO (NovoLOG) PER UNIT SC SCH ×4 (09:17→21:00)
[2022-10-28] MEDS: BACTRIM 160MG/800MG DS TAB PO SCH (09:18)
[2022-10-28] MEDS: PANTOPRAZOLE 40MG TAB (PROTONIX) PO SCH (09:18)
[2022-10-28] MEDS: levETIRAcetam 250MG TABLET (KEPPRA) PO SCH ×2 (09:18→21:21)
[2022-10-28] MEDS: VALPROIC ACID 250MG CAP PO SCH ×2 (09:18→21:20)
[2022-10-28 09:42] VITALS: BP 111/63
[2022-10-28 12:41] LABS: LDH LACTATE DEHYDROGENASE 143 U/L (120-246)
[2022-10-28] MEDS: SODIUM CHLORIDE 0.9% INJ 10 ML SYR IV PRN ×2 (12:48→18:26)
[2022-10-28 12:53] VITALS: BP 117/66
[2022-10-28] MEDS ORDERED: LIDOCAINE 1% MDV 20ML VIAL As Ordered ONE (13:27)
[2022-10-28 15:35] VITALS: BP 113/69
[2022-10-28] MEDS: cefTRIAXone SOD 2 GM in D5W MINI-BAG PLUS 50 ML IV SCH (16:16)
[2022-10-28] MEDS ORDERED: FLUBLOK(EGG FREE)(QUAD)INFLUENZA VACC 0.5ML SYRINGE 18YRS & OLDER IM ONE (16:30)
[2022-10-28 20:00] VITALS: BP 121/69
[2022-10-28] MEDS: BIKTARVY 50 MG/200 MG/25 MG TAB (PATIENT'S OWN MED) PO SCH (21:21)
[2022-10-29] VITALS (7 sets, daily range): BP systolic 104–171; BP diastolic 62–81
[2022-10-29] MEDS: KETOROLAC 30 MG/ML 1ML VIAL IV SCH ×2 (00:26→06:13)
[2022-10-29] MEDS: LEVALBUTEROL 1.25MG 0.5ML CONCENTRATE NEB NEB SCH ×4 (01:42→20:00)
[2022-10-29] MEDS: SODIUM CHLORIDE 0.9% INJ 10 ML SYR IV SCH ×2 (05:02→17:55)
[2022-10-29 05:10] LABS: BASO % 0.5 % (0.0-1.0); EOS % 0.5 % (0.0-3.0); HEMATOCRIT 26.5 % (42.0-52.0); HEMOGLOBIN 8.2 g/dl (13.5-17.5); LYMPH # 1.3 10^3/uL (1.5-5.0); LYMPH % 30.9 % (24.0-44.0); MEAN CORPUSCULAR HEMOGLOBIN 26.6 pg (27.0-33.0); MEAN CORPUSCULAR HGB CONC 30.9 g/dl (32.0-36.5); MONO # 0.7 10^3/uL (0.0-0.8); MONO % 17.2 % (2.0-8.0); NEUTROPHILS # 1.9 10^3/uL (1.5-8.5); NEUTROPHILS % 44.9 % (36.0-66.0); PLATELET COUNT, AUTOMATED 169 10^3/uL (150-450); RED BLOOD COUNT 3.08 10^6/uL (4.30-6.10); WHITE BLOOD COUNT 4.3 10^3/uL (4.0-10.0)
[2022-10-29 05:41] LABS: ALBUMIN 1.3 G/DL (3.2-5.2); ALKALINE PHOSPHATASE 146 U/L (46-116); ALT/SGPT < 9 U/L (7.0-40); AST/SGOT 18 U/L (<34); BILIRUBIN,TOTAL < 0.2 MG/DL (0.3-1.2); BLOOD UREA NITROGEN 9 MG/DL (9-23); CALCIUM LEVEL 7.4 MG/DL (8.5-10.1); CARBON DIOXIDE LEVEL 27 MMOL/L (20-31); CHLORIDE LEVEL 105 MMOL/L (98-107); CREATININE FOR GFR 0.71 MG/DL (0.70-1.30); GLOMERULAR FILTRATION RATE > 60.0 (>56); GLUCOSE, FASTING 119 MG/DL (60-100); POTASSIUM SERUM 4.1 MMOL/L (3.5-5.1); SODIUM LEVEL 141 MMOL/L (136-145); TOTAL PROTEIN 5.8 G/DL (5.7-8.2)
[2022-10-29] MEDS: HEPARIN SOD (PORCINE) 5000UNITS/ML 1ML VIAL/SYRINGE SQ SCH ×3 (05:51→21:04)
[2022-10-29] MEDS: metroNIDAZOLE (FLAGYL) 500MG TABLET PO SCH ×3 (05:51→21:02)
[2022-10-29] MEDS: BACTRIM 160MG/800MG DS TAB PO SCH (08:48)
[2022-10-29] MEDS: PANTOPRAZOLE 40MG TAB (PROTONIX) PO SCH (08:48)
[2022-10-29] MEDS: VALPROIC ACID 250MG CAP PO SCH ×2 (08:48→21:01)
[2022-10-29] MEDS: levETIRAcetam 250MG TABLET (KEPPRA) PO SCH ×2 (08:48→21:02)
[2022-10-29] MEDS: LEVEMIR (INSULIN DETEMIR) 1 UNITS/0.01ML SC SCH (08:49)
[2022-10-29] MEDS: INSULIN LISPRO (NovoLOG) PER UNIT SC SCH ×4 (08:50→21:00)
[2022-10-29] MEDS ORDERED: ALTEPLASE 2MG/2ML VIAL XX ONE (11:00)
[2022-10-29] MEDS: cefTRIAXone SOD 2 GM in D5W MINI-BAG PLUS 50 ML IV SCH (13:17)
[2022-10-29] MEDS: BIKTARVY 50 MG/200 MG/25 MG TAB (PATIENT'S OWN MED) PO SCH (21:02)
[2022-10-30 00:15] VITALS: BP 113/65
[2022-10-30] MEDS: LEVALBUTEROL 1.25MG 0.5ML CONCENTRATE NEB NEB SCH ×4 (02:00→21:23)
[2022-10-30 04:50] VITALS: BP 122/70
[2022-10-30] MEDS: HEPARIN SOD (PORCINE) 5000UNITS/ML 1ML VIAL/SYRINGE SQ SCH ×3 (05:05→21:34)
[2022-10-30] MEDS: metroNIDAZOLE (FLAGYL) 500MG TABLET PO SCH ×3 (05:05→21:33)
[2022-10-30] MEDS: SODIUM CHLORIDE 0.9% INJ 10 ML SYR IV SCH ×2 (05:06→18:27)
[2022-10-30 05:12] LABS: BASO % 0.6 % (0.0-1.0); EOS % 0.6 % (0.0-3.0); HEMATOCRIT 25.1 % (42.0-52.0); HEMOGLOBIN 7.9 g/dl (13.5-17.5); LYMPH # 1.2 10^3/uL (1.5-5.0); LYMPH % 35.6 % (24.0-44.0); MEAN CORPUSCULAR HEMOGLOBIN 27.1 pg (27.0-33.0); MEAN CORPUSCULAR HGB CONC 31.5 g/dl (32.0-36.5); MONO # 0.8 10^3/uL (0.0-0.8); MONO % 22.1 % (2.0-8.0); NEUTROPHILS # 1.2 10^3/uL (1.5-8.5); NEUTROPHILS % 35.4 % (36.0-66.0); PLATELET COUNT, AUTOMATED 160 10^3/uL (150-450); RED BLOOD COUNT 2.92 10^6/uL (4.30-6.10); WHITE BLOOD COUNT 3.5 10^3/uL (4.0-10.0)
[2022-10-30 05:54] LABS: ALBUMIN 1.3 G/DL (3.2-5.2); ALKALINE PHOSPHATASE 154 U/L (46-116); ALT/SGPT < 9 U/L (7.0-40); AST/SGOT 18 U/L (<34); BILIRUBIN,TOTAL < 0.2 MG/DL (0.3-1.2); BLOOD UREA NITROGEN 10 MG/DL (9-23); CALCIUM LEVEL 7.2 MG/DL (8.5-10.1); CARBON DIOXIDE LEVEL 27 MMOL/L (20-31); CHLORIDE LEVEL 103 MMOL/L (98-107); CREATININE FOR GFR 0.77 MG/DL (0.70-1.30); GLOMERULAR FILTRATION RATE > 60.0 (>56); GLUCOSE, FASTING 290 MG/DL (60-100); POTASSIUM SERUM 4.1 MMOL/L (3.5-5.1); SODIUM LEVEL 137 MMOL/L (136-145); TOTAL PROTEIN 5.7 G/DL (5.7-8.2)
[2022-10-30 08:00] VITALS: BP 111/64
[2022-10-30 08:40] LABS: VALPROIC ACID (DEPAKOTE) 34.4 UG/ML (50.0-100.0)
[2022-10-30] MEDS: LEVEMIR (INSULIN DETEMIR) 1 UNITS/0.01ML SC SCH (08:52)
[2022-10-30] MEDS: BACTRIM 160MG/800MG DS TAB PO SCH (08:53)
[2022-10-30] MEDS: INSULIN LISPRO (NovoLOG) PER UNIT SC SCH ×4 (08:53→20:07)
[2022-10-30] MEDS: VALPROIC ACID 250MG CAP PO SCH ×2 (08:54→20:07)
[2022-10-30] MEDS: PANTOPRAZOLE 40MG TAB (PROTONIX) PO SCH (08:54)
[2022-10-30] MEDS: levETIRAcetam 250MG TABLET (KEPPRA) PO SCH ×2 (08:54→20:06)
[2022-10-30 12:00] VITALS: BP 135/76
[2022-10-30 12:08] LABS: HSV-1 DNA Negative (Negative); HSV-2 DNA Negative (Negative)
[2022-10-30] MEDS: cefTRIAXone SOD 2 GM in D5W MINI-BAG PLUS 50 ML IV SCH (14:06)
[2022-10-30 16:00] VITALS: BP 101/59
[2022-10-30] MEDS: ACETAMINOPHEN TAB 650MG DOSE (2X325MG) PO PRN (17:16)
[2022-10-30 20:00] VITALS: BP 109/60
[2022-10-30] MEDS: BIKTARVY 50 MG/200 MG/25 MG TAB (PATIENT'S OWN MED) PO SCH (20:07)
[2022-10-31] VITALS (7 sets, daily range): BP systolic 98–118; BP diastolic 53–70
[2022-10-31] MEDS: LEVALBUTEROL 1.25MG 0.5ML CONCENTRATE NEB NEB SCH ×4 (01:41→20:08)
[2022-10-31] MEDS: metroNIDAZOLE (FLAGYL) 500MG TABLET PO SCH ×3 (05:17→22:09)
[2022-10-31] MEDS: HEPARIN SOD (PORCINE) 5000UNITS/ML 1ML VIAL/SYRINGE SQ SCH ×3 (05:17→22:09)
[2022-10-31] MEDS: SODIUM CHLORIDE 0.9% INJ 10 ML SYR IV SCH ×2 (05:18→17:30)
[2022-10-31 05:35] LABS: BASO # 0.1 10^3/uL (0.0-0.2); EOS % 0.4 % (0.0-3.0); HEMATOCRIT 25.1 % (42.0-52.0); HEMOGLOBIN 7.9 g/dl (13.5-17.5); LYMPH # 1.4 10^3/uL (1.5-5.0); LYMPH % 27.5 % (24.0-44.0); MEAN CORPUSCULAR HEMOGLOBIN 26.8 pg (27.0-33.0); MEAN CORPUSCULAR HGB CONC 31.5 g/dl (32.0-36.5); MEAN CORPUSCULAR VOLUME 85.1 fl (80.0-96.0); MONO # 1.2 10^3/uL (0.0-0.8); MONO % 23.2 % (2.0-8.0); NEUTROPHILS % 41.2 % (36.0-66.0); PLATELET COUNT, AUTOMATED 159 10^3/uL (150-450); RED BLOOD COUNT 2.95 10^6/uL (4.30-6.10)
[2022-10-31 06:03] LABS: ALBUMIN 1.4 G/DL (3.2-5.2); ALKALINE PHOSPHATASE 158 U/L (46-116); ALT/SGPT < 9 U/L (7.0-40); AST/SGOT 18 U/L (<34); BILIRUBIN,TOTAL < 0.2 MG/DL (0.3-1.2); BLOOD UREA NITROGEN 9 MG/DL (9-23); CALCIUM LEVEL 7.1 MG/DL (8.5-10.1); CARBON DIOXIDE LEVEL 23 MMOL/L (20-31); CHLORIDE LEVEL 104 MMOL/L (98-107); CREATININE FOR GFR 0.62 MG/DL (0.70-1.30); GLOMERULAR FILTRATION RATE > 60.0 (>56); GLUCOSE, FASTING 228 MG/DL (60-100); POTASSIUM SERUM 4.4 MMOL/L (3.5-5.1); SODIUM LEVEL 138 MMOL/L (136-145)
[2022-10-31] MEDS: LEVEMIR (INSULIN DETEMIR) 1 UNITS/0.01ML SC SCH (09:06)
[2022-10-31] MEDS: levETIRAcetam 250MG TABLET (KEPPRA) PO SCH ×2 (09:07→21:12)
[2022-10-31] MEDS: INSULIN LISPRO (NovoLOG) PER UNIT SC SCH ×4 (09:07→21:12)
[2022-10-31] MEDS: BACTRIM 160MG/800MG DS TAB PO SCH (09:07)
[2022-10-31] MEDS: VALPROIC ACID 250MG CAP PO SCH ×2 (09:07→21:17)
[2022-10-31] MEDS: PANTOPRAZOLE 40MG TAB (PROTONIX) PO SCH (09:07)
[2022-10-31] MEDS: ACETAMINOPHEN TAB 650MG DOSE (2X325MG) PO PRN (13:01)
[2022-10-31] MEDS: cefTRIAXone SOD 2 GM in D5W MINI-BAG PLUS 50 ML IV SCH (14:27)
[2022-10-31] MEDS: BIKTARVY 50 MG/200 MG/25 MG TAB (PATIENT'S OWN MED) PO SCH (21:12)
[2022-11-01] VITALS: BP 92/58
[2022-11-01] MEDS: LEVALBUTEROL 1.25MG 0.5ML CONCENTRATE NEB NEB SCH ×2 (02:52→07:55)
[2022-11-01 04:00] VITALS: BP 95/53
[2022-11-01] MEDS: metroNIDAZOLE (FLAGYL) 500MG TABLET PO SCH ×3 (05:43→21:04)
[2022-11-01] MEDS: SODIUM CHLORIDE 0.9% INJ 10 ML SYR IV SCH ×2 (05:44→18:25)
[2022-11-01] MEDS: HEPARIN SOD (PORCINE) 5000UNITS/ML 1ML VIAL/SYRINGE SQ SCH ×3 (05:44→21:05)
[2022-11-01 08:00] VITALS: BP 112/61
[2022-11-01] MEDS: BACTRIM 160MG/800MG DS TAB PO SCH (08:06)
[2022-11-01] MEDS: LEVEMIR (INSULIN DETEMIR) 1 UNITS/0.01ML SC SCH (08:06)
[2022-11-01] MEDS: VALPROIC ACID 250MG CAP PO SCH ×2 (08:06→21:04)
[2022-11-01] MEDS: INSULIN LISPRO (NovoLOG) PER UNIT SC SCH ×4 (08:06→20:52)
[2022-11-01] MEDS: levETIRAcetam 250MG TABLET (KEPPRA) PO SCH ×2 (08:07→21:04)
[2022-11-01] MEDS: PANTOPRAZOLE 40MG TAB (PROTONIX) PO SCH (08:07)
[2022-11-01 08:33] LABS: HEMATOCRIT 25.9 % (42.0-52.0); MEAN CORPUSCULAR HEMOGLOBIN 26.5 pg (27.0-33.0); MEAN CORPUSCULAR HGB CONC 30.9 g/dl (32.0-36.5); MEAN CORPUSCULAR VOLUME 85.8 fl (80.0-96.0); PLATELET COUNT, AUTOMATED 165 10^3/uL (150-450); RED BLOOD COUNT 3.02 10^6/uL (4.30-6.10); WHITE BLOOD COUNT 5.1 10^3/uL (4.0-10.0)
[2022-11-01 09:00] LABS: BLOOD UREA NITROGEN 10 MG/DL (9-23); CALCIUM LEVEL 7.5 MG/DL (8.5-10.1); CARBON DIOXIDE LEVEL 28 MMOL/L (20-31); CHLORIDE LEVEL 102 MMOL/L (98-107); CREATININE FOR GFR 0.68 MG/DL (0.70-1.30); GLOMERULAR FILTRATION RATE > 60.0 (>56); GLUCOSE, FASTING 206 MG/DL (60-100); POTASSIUM SERUM 4.4 MMOL/L (3.5-5.1); SODIUM LEVEL 136 MMOL/L (136-145)
[2022-11-01 09:04] LABS: ATYPICAL LYMPH 3 % (0-5); EOSINOPHILS 1 % (0-3); LYMPHOCYTES 25 % (16-44); MONOCYTES 20 % (0-5); MYELOCYTES 5 % (0-0); NEUTROPHILS 46 % (28-66)
[2022-11-01 09:06] LABS: PLATELET ESTIMATE NORMAL (NORMAL)
[2022-11-01 09:07] LABS: POLYCHROMASIA 1+
[2022-11-01] MEDS: cefTRIAXone SOD 2 GM in D5W MINI-BAG PLUS 50 ML IV SCH (13:56)
[2022-11-01 14:00] VITALS: BP 93/55
[2022-11-01 20:00] VITALS: BP 101/63
[2022-11-01] MEDS: BIKTARVY 50 MG/200 MG/25 MG TAB (PATIENT'S OWN MED) PO SCH (21:05)
[2022-11-01 22:00] VITALS: BP 101/63
[2022-11-02] MEDS: metroNIDAZOLE (FLAGYL) 500MG TABLET PO SCH ×3 (05:04→21:00)
[2022-11-02] MEDS: SODIUM CHLORIDE 0.9% INJ 10 ML SYR IV SCH ×2 (05:05→17:53)
[2022-11-02] MEDS: HEPARIN SOD (PORCINE) 5000UNITS/ML 1ML VIAL/SYRINGE SQ SCH (05:05)
[2022-11-02 06:00] VITALS: BP 108/74
[2022-11-02 06:17] LABS: HEMATOCRIT 27.5 % (42.0-52.0); HEMOGLOBIN 8.6 g/dl (13.5-17.5); MEAN CORPUSCULAR HEMOGLOBIN 26.9 pg (27.0-33.0); MEAN CORPUSCULAR HGB CONC 31.3 g/dl (32.0-36.5); MEAN CORPUSCULAR VOLUME 85.9 fl (80.0-96.0); PLATELET COUNT, AUTOMATED 192 10^3/uL (150-450); WHITE BLOOD COUNT 4.7 10^3/uL (4.0-10.0)
[2022-11-02 06:46] LABS: LYMPHOCYTES 31 % (16-44); METAMYELOCYTES 1 % (0-0); MONOCYTES 17 % (0-5); MYELOCYTES 5 % (0-0); NEUTROPHILS 43 % (28-66)
[2022-11-02 06:48] LABS: ANISOCYTOSIS 1+; PLATELET ESTIMATE NORMAL (NORMAL); POLYCHROMASIA 1+
[2022-11-02 06:51] LABS: BLOOD UREA NITROGEN 10 MG/DL (9-23); CALCIUM LEVEL 7.4 MG/DL (8.5-10.1); CARBON DIOXIDE LEVEL 23 MMOL/L (20-31); CHLORIDE LEVEL 103 MMOL/L (98-107); CREATININE FOR GFR 0.71 MG/DL (0.70-1.30); GLOMERULAR FILTRATION RATE > 60.0 (>56); GLUCOSE, FASTING 301 MG/DL (60-100); POTASSIUM SERUM 4.3 MMOL/L (3.5-5.1); SODIUM LEVEL 137 MMOL/L (136-145)
[2022-11-02] MEDS: INSULIN LISPRO (NovoLOG) PER UNIT SC SCH ×4 (07:33→20:58)
[2022-11-02] MEDS: PERCOCET 5MG/325MG TAB PO PRN ×2 (07:38→18:19)
[2022-11-02 08:00] VITALS: BP 110/69
[2022-11-02] MEDS: BACTRIM 160MG/800MG DS TAB PO SCH (10:03)
[2022-11-02] MEDS: VALPROIC ACID 250MG CAP PO SCH ×2 (10:03→20:58)
[2022-11-02] MEDS: PANTOPRAZOLE 40MG TAB (PROTONIX) PO SCH (10:04)
[2022-11-02] MEDS: LEVEMIR (INSULIN DETEMIR) 1 UNITS/0.01ML SC SCH (10:04)
[2022-11-02] MEDS: levETIRAcetam 250MG TABLET (KEPPRA) PO SCH ×2 (10:04→20:58)
[2022-11-02] MEDS: cefTRIAXone SOD 2 GM in D5W MINI-BAG PLUS 50 ML IV SCH (14:46)
[2022-11-02 20:00] VITALS: BP 114/62
[2022-11-02] MEDS: ACETAMINOPHEN TAB 650MG DOSE (2X325MG) PO PRN (20:57)
[2022-11-02] MEDS: BIKTARVY 50 MG/200 MG/25 MG TAB (PATIENT'S OWN MED) PO SCH (20:58)
[2022-11-03 05:22] LABS: BLOOD UREA NITROGEN 11 MG/DL (9-23); CALCIUM LEVEL 7.5 MG/DL (8.5-10.1); CARBON DIOXIDE LEVEL 24 MMOL/L (20-31); CHLORIDE LEVEL 105 MMOL/L (98-107); CREATININE FOR GFR 0.81 MG/DL (0.70-1.30); GLOMERULAR FILTRATION RATE > 60.0 (>56); GLUCOSE, FASTING 168 MG/DL (60-100); HEMATOCRIT 28.2 % (42.0-52.0); HEMOGLOBIN 8.6 g/dl (13.5-17.5); MEAN CORPUSCULAR HEMOGLOBIN 26.4 pg (27.0-33.0); MEAN CORPUSCULAR HGB CONC 30.5 g/dl (32.0-36.5); MEAN CORPUSCULAR VOLUME 86.5 fl (80.0-96.0); PLATELET COUNT, AUTOMATED 202 10^3/uL (150-450); RED BLOOD COUNT 3.26 10^6/uL (4.30-6.10); SODIUM LEVEL 139 MMOL/L (136-145); WHITE BLOOD COUNT 4.5 10^3/uL (4.0-10.0)
[2022-11-03 05:39] LABS: ATYPICAL LYMPH 4 % (0-5); BASOPHILS 2 % (0-1); EOSINOPHILS 1 % (0-3); LYMPHOCYTES 39 % (16-44); MONOCYTES 16 % (0-5); MYELOCYTES 6 % (0-0); NEUTROPHILS 32 % (28-66)
[2022-11-03 05:40] LABS: ANISOCYTOSIS 1+; PLATELET ESTIMATE NORMAL (NORMAL); POIKILOCYTOSIS 1+; POLYCHROMASIA 1+
[2022-11-03] MEDS: metroNIDAZOLE (FLAGYL) 500MG TABLET PO SCH ×3 (06:03→22:10)
[2022-11-03] MEDS: SODIUM CHLORIDE 0.9% INJ 10 ML SYR IV SCH ×2 (06:10→17:27)
[2022-11-03] MEDS: INSULIN LISPRO (NovoLOG) PER UNIT SC SCH ×4 (07:18→21:00)
[2022-11-03 07:20] VITALS: BP 111/65
[2022-11-03] MEDS: levETIRAcetam 250MG TABLET (KEPPRA) PO SCH ×2 (08:41→22:09)
[2022-11-03] MEDS: BACTRIM 160MG/800MG DS TAB PO SCH (08:41)
[2022-11-03] MEDS: PANTOPRAZOLE 40MG TAB (PROTONIX) PO SCH (08:41)
[2022-11-03] MEDS: ENOXAPARIN 40MG/0.4ML SYRINGE (J1650 PER 10MG) SC SCH (08:42)
[2022-11-03] MEDS: VALPROIC ACID 250MG CAP PO SCH ×2 (08:42→22:09)
[2022-11-03] MEDS: LEVEMIR (INSULIN DETEMIR) 1 UNITS/0.01ML SC SCH (08:42)
[2022-11-03] MEDS: PERCOCET 5MG/325MG TAB PO PRN (10:32)
[2022-11-03] MEDS: cefTRIAXone SOD 2 GM in D5W MINI-BAG PLUS 50 ML IV SCH (14:10)
[2022-11-03 16:13] VITALS: BP 132/78
[2022-11-03] MEDS: SODIUM CHLORIDE 0.9% INJ 10 ML SYR IV PRN (17:27)
[2022-11-03] MEDS: BIKTARVY 50 MG/200 MG/25 MG TAB (PATIENT'S OWN MED) PO SCH (22:10)
[2022-11-04] MEDS: SODIUM CHLORIDE 0.9% INJ 10 ML SYR IV SCH ×2 (05:18→17:53)
[2022-11-04] MEDS: metroNIDAZOLE (FLAGYL) 500MG TABLET PO SCH ×3 (05:19→21:47)
[2022-11-04] MEDS: ACETAMINOPHEN TAB 650MG DOSE (2X325MG) PO PRN (05:26)
[2022-11-04 05:30] VITALS: BP 106/60
[2022-11-04 06:45] LABS: HEMATOCRIT 29.4 % (42.0-52.0); HEMOGLOBIN 9.1 g/dl (13.5-17.5); MEAN CORPUSCULAR HEMOGLOBIN 26.5 pg (27.0-33.0); MEAN CORPUSCULAR VOLUME 85.7 fl (80.0-96.0); PLATELET COUNT, AUTOMATED 187 10^3/uL (150-450); RED BLOOD COUNT 3.43 10^6/uL (4.30-6.10); WHITE BLOOD COUNT 5.2 10^3/uL (4.0-10.0)
[2022-11-04 07:03] LABS: BLOOD UREA NITROGEN 10 MG/DL (9-23); CALCIUM LEVEL 7.5 MG/DL (8.5-10.1); CARBON DIOXIDE LEVEL 24 MMOL/L (20-31); CHLORIDE LEVEL 101 MMOL/L (98-107); CREATININE FOR GFR 0.76 MG/DL (0.70-1.30); GLOMERULAR FILTRATION RATE > 60.0 (>56); GLUCOSE, FASTING 168 MG/DL (60-100); POTASSIUM SERUM 4.5 MMOL/L (3.5-5.1); SODIUM LEVEL 135 MMOL/L (136-145)
[2022-11-04] MEDS: INSULIN LISPRO (NovoLOG) PER UNIT SC SCH ×4 (07:30→21:00)
[2022-11-04 07:48] LABS: ATYPICAL LYMPH 2 % (0-5); BASOPHILS 1 % (0-1); EOSINOPHILS 1 % (0-3); LYMPHOCYTES 57 % (16-44); MONOCYTES 8 % (0-5); NEUTROPHILS 30 % (28-66)
[2022-11-04 07:49] LABS: PLATELET ESTIMATE NORMAL (NORMAL)
[2022-11-04 07:50] LABS: ANISOCYTOSIS 1+
[2022-11-04] MEDS: LEVEMIR (INSULIN DETEMIR) 1 UNITS/0.01ML SC SCH (10:32)
[2022-11-04] MEDS: ENOXAPARIN 40MG/0.4ML SYRINGE (J1650 PER 10MG) SC SCH (10:32)
[2022-11-04] MEDS: VALPROIC ACID 250MG CAP PO SCH ×2 (10:33→21:46)
[2022-11-04] MEDS: PANTOPRAZOLE 40MG TAB (PROTONIX) PO SCH (10:33)
[2022-11-04] MEDS: levETIRAcetam 250MG TABLET (KEPPRA) PO SCH ×2 (10:33→21:46)
[2022-11-04] MEDS: BACTRIM 160MG/800MG DS TAB PO SCH (10:33)
[2022-11-04] MEDS: PERCOCET 5MG/325MG TAB PO PRN ×2 (10:43→21:48)
[2022-11-04] MEDS ORDERED: FLUBLOK(EGG FREE)(QUAD)INFLUENZA VACC 0.5ML SYRINGE 18YRS & OLDER IM.IMMUN ONE (11:00)
[2022-11-04] MEDS: cefTRIAXone SOD 2 GM in D5W MINI-BAG PLUS 50 ML IV SCH (14:24)
[2022-11-04] MEDS: SODIUM CHLORIDE 0.9% INJ 10 ML SYR IV PRN (14:29)
[2022-11-04] MEDS: BIKTARVY 50 MG/200 MG/25 MG TAB (PATIENT'S OWN MED) PO SCH (21:46)
[2022-11-05 05:10] VITALS: BP 110/64
[2022-11-05] MEDS: metroNIDAZOLE (FLAGYL) 500MG TABLET PO SCH ×3 (05:49→21:19)
[2022-11-05] MEDS: SODIUM CHLORIDE 0.9% INJ 10 ML SYR IV SCH ×2 (05:50→16:16)
[2022-11-05 06:02] LABS: BASO # 0.1 10^3/uL (0.0-0.2); BASO % 1.2 % (0.0-1.0); EOS # 0.1 10^3/uL (0.0-0.5); EOS % 1.2 % (0.0-3.0); HEMATOCRIT 31.6 % (42.0-52.0); HEMOGLOBIN 9.8 g/dl (13.5-17.5); LYMPH # 2.2 10^3/uL (1.5-5.0); LYMPH % 43.7 % (24.0-44.0); MEAN CORPUSCULAR VOLUME 87.1 fl (80.0-96.0); MONO % 19.9 % (2.0-8.0); NEUTROPHILS # 1.5 10^3/uL (1.5-8.5); NEUTROPHILS % 29.5 % (36.0-66.0); PLATELET COUNT, AUTOMATED 212 10^3/uL (150-450); RED BLOOD COUNT 3.63 10^6/uL (4.30-6.10); WHITE BLOOD COUNT 5.1 10^3/uL (4.0-10.0)
[2022-11-05 06:28] LABS: BLOOD UREA NITROGEN 11 MG/DL (9-23); CALCIUM LEVEL 7.9 MG/DL (8.5-10.1); CARBON DIOXIDE LEVEL 27 MMOL/L (20-31); CHLORIDE LEVEL 100 MMOL/L (98-107); GLOMERULAR FILTRATION RATE > 60.0 (>56); GLUCOSE, FASTING 286 MG/DL (60-100); SODIUM LEVEL 134 MMOL/L (136-145)
[2022-11-05] MEDS: ENOXAPARIN 40MG/0.4ML SYRINGE (J1650 PER 10MG) SC SCH (08:13)
[2022-11-05] MEDS: LEVEMIR (INSULIN DETEMIR) 1 UNITS/0.01ML SC SCH (08:13)
[2022-11-05] MEDS: INSULIN LISPRO (NovoLOG) PER UNIT SC SCH ×4 (08:13→20:44)
[2022-11-05] MEDS: PANTOPRAZOLE 40MG TAB (PROTONIX) PO SCH (08:14)
[2022-11-05] MEDS: BACTRIM 160MG/800MG DS TAB PO SCH (08:14)
[2022-11-05] MEDS: levETIRAcetam 250MG TABLET (KEPPRA) PO SCH ×2 (08:14→21:19)
[2022-11-05] MEDS: VALPROIC ACID 250MG CAP PO SCH (08:14)
[2022-11-05] MEDS: cefTRIAXone SOD 2 GM in D5W MINI-BAG PLUS 50 ML IV SCH (15:26)
[2022-11-05] MEDS ORDERED: PROHANCE 279.3MG/ML 5ML VIAL As Ordered ONE (18:02)
[2022-11-05] MEDS ORDERED: PROHANCE 279.3MG/ML 15ML VIAL As Ordered ONE (18:02)
[2022-11-05] MEDS: BIKTARVY 50 MG/200 MG/25 MG TAB (PATIENT'S OWN MED) PO SCH (21:18)
[2022-11-05] MEDS: DIVALPROEX 250MG *ER* TAB PO SCH (21:19)
[2022-11-05] MEDS: ACETAMINOPHEN TAB 650MG DOSE (2X325MG) PO PRN (21:20)
[2022-11-06] MEDS: SODIUM CHLORIDE 0.9% INJ 10 ML SYR IV SCH ×2 (05:49→18:02)
[2022-11-06] MEDS: metroNIDAZOLE (FLAGYL) 500MG TABLET PO SCH ×2 (05:49→14:52)
[2022-11-06 06:35] LABS: BASO # 0.1 10^3/uL (0.0-0.2); EOS # 0.1 10^3/uL (0.0-0.5); EOS % 1.3 % (0.0-3.0); HEMATOCRIT 27.2 % (42.0-52.0); HEMOGLOBIN 8.6 g/dl (13.5-17.5); LYMPH # 2.4 10^3/uL (1.5-5.0); LYMPH % 46.7 % (24.0-44.0); MEAN CORPUSCULAR HEMOGLOBIN 27.5 pg (27.0-33.0); MEAN CORPUSCULAR HGB CONC 31.6 g/dl (32.0-36.5); MEAN CORPUSCULAR VOLUME 86.9 fl (80.0-96.0); NEUTROPHILS # 1.5 10^3/uL (1.5-8.5); NEUTROPHILS % 28.3 % (36.0-66.0); PLATELET COUNT, AUTOMATED 189 10^3/uL (150-450); RED BLOOD COUNT 3.13 10^6/uL (4.30-6.10); WHITE BLOOD COUNT 5.2 10^3/uL (4.0-10.0)
[2022-11-06 07:04] LABS: BLOOD UREA NITROGEN 10 MG/DL (9-23); CALCIUM LEVEL 7.6 MG/DL (8.5-10.1); CARBON DIOXIDE LEVEL 27 MMOL/L (20-31); CHLORIDE LEVEL 101 MMOL/L (98-107); CREATININE FOR GFR 0.71 MG/DL (0.70-1.30); GLOMERULAR FILTRATION RATE > 60.0 (>56); GLUCOSE, FASTING 307 MG/DL (60-100); POTASSIUM SERUM 3.7 MMOL/L (3.5-5.1); SODIUM LEVEL 136 MMOL/L (136-145)
[2022-11-06] MEDS: DIVALPROEX 250MG *ER* TAB PO SCH ×2 (08:07→21:57)
[2022-11-06] MEDS: PANTOPRAZOLE 40MG TAB (PROTONIX) PO SCH (08:07)
[2022-11-06] MEDS: levETIRAcetam 250MG TABLET (KEPPRA) PO SCH ×2 (08:07→21:57)
[2022-11-06] MEDS: BACTRIM 160MG/800MG DS TAB PO SCH (08:07)
[2022-11-06] MEDS: INSULIN LISPRO (NovoLOG) PER UNIT SC SCH ×4 (08:08→21:57)
[2022-11-06] MEDS: LEVEMIR (INSULIN DETEMIR) 1 UNITS/0.01ML SC SCH (08:08)
[2022-11-06] MEDS: ENOXAPARIN 40MG/0.4ML SYRINGE (J1650 PER 10MG) SC SCH (08:09)
[2022-11-06] MEDS: cefTRIAXone SOD 2 GM in D5W MINI-BAG PLUS 50 ML IV SCH (14:53)
[2022-11-06] MEDS: BIKTARVY 50 MG/200 MG/25 MG TAB (PATIENT'S OWN MED) PO SCH ×2 (21:00→21:56)
[2022-11-06] MEDS: metroNIDAZOLE 500 MG in IV 1 EA IV SCH (21:56)
[2022-11-07] MEDS: SODIUM CHLORIDE 0.9% INJ 10 ML SYR IV PRN (00:35)
[2022-11-07 05:04] VITALS: BP 118/64
[2022-11-07] MEDS: metroNIDAZOLE 500 MG in IV 1 EA IV SCH ×3 (05:49→21:09)
[2022-11-07] MEDS: SODIUM CHLORIDE 0.9% INJ 10 ML SYR IV SCH ×2 (05:50→14:59)
[2022-11-07 06:47] LABS: BASO # 0.1 10^3/uL (0.0-0.2); EOS # 0.1 10^3/uL (0.0-0.5); EOS % 1.5 % (0.0-3.0); HEMATOCRIT 28.3 % (42.0-52.0); HEMOGLOBIN 8.7 g/dl (13.5-17.5); LYMPH # 2.4 10^3/uL (1.5-5.0); LYMPH % 45.5 % (24.0-44.0); MEAN CORPUSCULAR HEMOGLOBIN 27.3 pg (27.0-33.0); MEAN CORPUSCULAR HGB CONC 30.7 g/dl (32.0-36.5); MEAN CORPUSCULAR VOLUME 88.7 fl (80.0-96.0); MONO # 0.9 10^3/uL (0.0-0.8); MONO % 18.2 % (2.0-8.0); NEUTROPHILS # 1.6 10^3/uL (1.5-8.5); NEUTROPHILS % 30.3 % (36.0-66.0); PLATELET COUNT, AUTOMATED 174 10^3/uL (150-450); RED BLOOD COUNT 3.19 10^6/uL (4.30-6.10); WHITE BLOOD COUNT 5.2 10^3/uL (4.0-10.0)
[2022-11-07 07:02] LABS: BLOOD UREA NITROGEN 14 MG/DL (9-23); CARBON DIOXIDE LEVEL 27 MMOL/L (20-31); CHLORIDE LEVEL 103 MMOL/L (98-107); GLOMERULAR FILTRATION RATE > 60.0 (>56); GLUCOSE, FASTING 271 MG/DL (60-100); SODIUM LEVEL 137 MMOL/L (136-145)
[2022-11-07] MEDS: levETIRAcetam 250MG TABLET (KEPPRA) PO SCH ×2 (08:38→21:10)
[2022-11-07] MEDS: DIVALPROEX 250MG *ER* TAB PO SCH ×2 (08:38→21:10)
[2022-11-07] MEDS: BACTRIM 160MG/800MG DS TAB PO SCH (08:39)
[2022-11-07] MEDS: PANTOPRAZOLE 40MG TAB (PROTONIX) PO SCH (08:39)
[2022-11-07] MEDS: ENOXAPARIN 40MG/0.4ML SYRINGE (J1650 PER 10MG) SC SCH (08:39)
[2022-11-07] MEDS: INSULIN LISPRO (NovoLOG) PER UNIT SC SCH ×4 (08:40→21:00)
[2022-11-07] MEDS: LEVEMIR (INSULIN DETEMIR) 1 UNITS/0.01ML SC SCH (08:40)
[2022-11-07] MEDS: cefTRIAXone SOD 2 GM in D5W MINI-BAG PLUS 50 ML IV SCH (14:58)
[2022-11-07] MEDS: BIKTARVY 50 MG/200 MG/25 MG TAB (PATIENT'S OWN MED) PO SCH (21:10)
[2022-11-08] MEDS: metroNIDAZOLE 500 MG in IV 1 EA IV SCH ×3 (05:39→20:05)
[2022-11-08] MEDS: SODIUM CHLORIDE 0.9% INJ 10 ML SYR IV SCH ×2 (05:40→18:17)
[2022-11-08 06:00] VITALS: BP 132/82
[2022-11-08 07:53] LABS: BASO % 0.8 % (0.0-1.0); EOS # 0.1 10^3/uL (0.0-0.5); EOS % 1.4 % (0.0-3.0); HEMATOCRIT 28.9 % (42.0-52.0); HEMOGLOBIN 8.7 g/dl (13.5-17.5); LYMPH # 2.1 10^3/uL (1.5-5.0); LYMPH % 40.1 % (24.0-44.0); MEAN CORPUSCULAR HEMOGLOBIN 26.9 pg (27.0-33.0); MEAN CORPUSCULAR HGB CONC 30.1 g/dl (32.0-36.5); MEAN CORPUSCULAR VOLUME 89.5 fl (80.0-96.0); NEUTROPHILS # 1.8 10^3/uL (1.5-8.5); RED BLOOD COUNT 3.23 10^6/uL (4.30-6.10); WHITE BLOOD COUNT 5.1 10^3/uL (4.0-10.0)
[2022-11-08 08:12] LABS: BLOOD UREA NITROGEN 13 MG/DL (9-23); CALCIUM LEVEL 7.5 MG/DL (8.5-10.1); CARBON DIOXIDE LEVEL 21 MMOL/L (20-31); CHLORIDE LEVEL 101 MMOL/L (98-107); CREATININE FOR GFR 0.59 MG/DL (0.70-1.30); GLOMERULAR FILTRATION RATE > 60.0 (>56); GLUCOSE, FASTING 335 MG/DL (60-100); POTASSIUM SERUM 4.2 MMOL/L (3.5-5.1); SODIUM LEVEL 135 MMOL/L (136-145)
[2022-11-08] MEDS: DIVALPROEX 250MG *ER* TAB PO SCH ×2 (08:34→20:03)
[2022-11-08] MEDS: BACTRIM 160MG/800MG DS TAB PO SCH (08:34)
[2022-11-08] MEDS: levETIRAcetam 250MG TABLET (KEPPRA) PO SCH ×2 (08:35→20:02)
[2022-11-08] MEDS: PANTOPRAZOLE 40MG TAB (PROTONIX) PO SCH (08:35)
[2022-11-08] MEDS: INSULIN LISPRO (NovoLOG) PER UNIT SC SCH ×4 (08:37→20:03)
[2022-11-08] MEDS: LEVEMIR (INSULIN DETEMIR) 1 UNITS/0.01ML SC SCH (08:38)
[2022-11-08] MEDS: ENOXAPARIN 40MG/0.4ML SYRINGE (J1650 PER 10MG) SC SCH (08:38)
[2022-11-08 09:04] LABS: PLATELET COUNT, AUTOMATED 150 10^3/uL (150-450)
[2022-11-08] MEDS: cefTRIAXone SOD 2 GM in D5W MINI-BAG PLUS 50 ML IV SCH (15:06)
[2022-11-08] MEDS: BIKTARVY 50 MG/200 MG/25 MG TAB (PATIENT'S OWN MED) PO SCH (20:03)
[2022-11-09] MEDS: metroNIDAZOLE 500 MG in IV 1 EA IV SCH ×3 (05:36→21:38)
[2022-11-09] MEDS: SODIUM CHLORIDE 0.9% INJ 10 ML SYR IV SCH ×2 (05:37→16:08)
[2022-11-09 06:00] VITALS: BP 124/57
[2022-11-09] MEDS: BACTRIM 160MG/800MG DS TAB PO SCH (08:11)
[2022-11-09] MEDS: levETIRAcetam 250MG TABLET (KEPPRA) PO SCH ×2 (08:11→21:39)
[2022-11-09] MEDS: DIVALPROEX 250MG *ER* TAB PO SCH ×2 (08:11→21:40)
[2022-11-09] MEDS: PANTOPRAZOLE 40MG TAB (PROTONIX) PO SCH (08:12)
[2022-11-09] MEDS: LEVEMIR (INSULIN DETEMIR) 1 UNITS/0.01ML SC SCH (08:12)
[2022-11-09] MEDS: ENOXAPARIN 40MG/0.4ML SYRINGE (J1650 PER 10MG) SC SCH (08:12)
[2022-11-09] MEDS: INSULIN LISPRO (NovoLOG) PER UNIT SC SCH ×4 (08:13→21:00)
[2022-11-09] MEDS: cefTRIAXone SOD 2 GM in D5W MINI-BAG PLUS 50 ML IV SCH (15:00)
[2022-11-09] MEDS: ACETAMINOPHEN TAB 650MG DOSE (2X325MG) PO PRN (21:41)
[2022-11-09] MEDS: BIKTARVY 50 MG/200 MG/25 MG TAB (PATIENT'S OWN MED) PO SCH (21:42)
[2022-11-10 06:00] VITALS: BP 119/78
[2022-11-10] MEDS: SODIUM CHLORIDE 0.9% INJ 10 ML SYR IV SCH ×2 (06:43→18:36)
[2022-11-10] MEDS: metroNIDAZOLE 500 MG in IV 1 EA IV SCH ×3 (06:43→21:44)
[2022-11-10] MEDS: LEVEMIR (INSULIN DETEMIR) 1 UNITS/0.01ML SC SCH (08:15)
[2022-11-10] MEDS: INSULIN LISPRO (NovoLOG) PER UNIT SC SCH ×4 (08:15→21:00)
[2022-11-10] MEDS: levETIRAcetam 250MG TABLET (KEPPRA) PO SCH ×2 (08:16→21:43)
[2022-11-10] MEDS: PANTOPRAZOLE 40MG TAB (PROTONIX) PO SCH (08:16)
[2022-11-10] MEDS: DIVALPROEX 250MG *ER* TAB PO SCH ×2 (08:16→21:43)
[2022-11-10] MEDS: ENOXAPARIN 40MG/0.4ML SYRINGE (J1650 PER 10MG) SC SCH (08:17)
[2022-11-10] MEDS: BACTRIM 160MG/800MG DS TAB PO SCH (08:24)
[2022-11-10] MEDS: cefTRIAXone SOD 2 GM in D5W MINI-BAG PLUS 50 ML IV SCH (14:17)
[2022-11-10 20:00] VITALS: BP 118/69
[2022-11-10] MEDS: BIKTARVY 50 MG/200 MG/25 MG TAB (PATIENT'S OWN MED) PO SCH (21:43)
[2022-11-10] MEDS: SODIUM CHLORIDE 0.9% INJ 10 ML SYR IV PRN ×2 (21:44→23:46)
[2022-11-10] MEDS: ACETAMINOPHEN TAB 650MG DOSE (2X325MG) PO PRN (21:44)
[2022-11-11] MEDS: SODIUM CHLORIDE 0.9% INJ 10 ML SYR IV PRN ×2 (05:05→21:45)
[2022-11-11] MEDS: metroNIDAZOLE 500 MG in IV 1 EA IV SCH ×3 (05:05→21:43)
[2022-11-11 05:29] LABS: BASO # 0.1 10^3/uL (0.0-0.2); BASO % 1.1 % (0.0-1.0); EOS # 0.1 10^3/uL (0.0-0.5); EOS % 1.5 % (0.0-3.0); HEMATOCRIT 25.9 % (42.0-52.0); HEMOGLOBIN 8.1 g/dl (13.5-17.5); LYMPH # 2.2 10^3/uL (1.5-5.0); LYMPH % 46.6 % (24.0-44.0); MEAN CORPUSCULAR HEMOGLOBIN 28.2 pg (27.0-33.0); MEAN CORPUSCULAR HGB CONC 31.3 g/dl (32.0-36.5); MEAN CORPUSCULAR VOLUME 90.2 fl (80.0-96.0); MONO # 1.1 10^3/uL (0.0-0.8); MONO % 24.5 % (2.0-8.0); NEUTROPHILS # 1.2 10^3/uL (1.5-8.5); NEUTROPHILS % 25.4 % (36.0-66.0); PLATELET COUNT, AUTOMATED 120 10^3/uL (150-450); RED BLOOD COUNT 2.87 10^6/uL (4.30-6.10); WHITE BLOOD COUNT 4.6 10^3/uL (4.0-10.0)
[2022-11-11 06:00] VITALS: BP 127/82
[2022-11-11] MEDS: SODIUM CHLORIDE 0.9% INJ 10 ML SYR IV SCH ×2 (06:32→17:05)
[2022-11-11] MEDS: DIVALPROEX 250MG *ER* TAB PO SCH ×2 (08:34→21:43)
[2022-11-11] MEDS: LEVEMIR (INSULIN DETEMIR) 1 UNITS/0.01ML SC SCH (08:35)
[2022-11-11] MEDS: INSULIN LISPRO (NovoLOG) PER UNIT SC SCH ×4 (08:35→21:45)
[2022-11-11] MEDS: ENOXAPARIN 40MG/0.4ML SYRINGE (J1650 PER 10MG) SC SCH (08:36)
[2022-11-11] MEDS: levETIRAcetam 250MG TABLET (KEPPRA) PO SCH ×2 (08:36→21:43)
[2022-11-11] MEDS: BACTRIM 160MG/800MG DS TAB PO SCH (08:36)
[2022-11-11] MEDS: PANTOPRAZOLE 40MG TAB (PROTONIX) PO SCH (08:36)
[2022-11-11] MEDS: cefTRIAXone SOD 2 GM in D5W MINI-BAG PLUS 50 ML IV SCH (13:55)
[2022-11-11] MEDS: BIKTARVY 50 MG/200 MG/25 MG TAB (PATIENT'S OWN MED) PO SCH (21:44)
[2022-11-12] MEDS: SODIUM CHLORIDE 0.9% INJ 10 ML SYR IV SCH ×2 (05:22→16:26)
[2022-11-12] MEDS: metroNIDAZOLE 500 MG in IV 1 EA IV SCH ×3 (05:22→22:51)
[2022-11-12 06:04] VITALS: BP 105/64
[2022-11-12] MEDS: ENOXAPARIN 40MG/0.4ML SYRINGE (J1650 PER 10MG) SC SCH (09:00)
[2022-11-12] MEDS: PANTOPRAZOLE 40MG TAB (PROTONIX) PO SCH (09:46)
[2022-11-12] MEDS: levETIRAcetam 250MG TABLET (KEPPRA) PO SCH ×2 (09:46→22:50)
[2022-11-12] MEDS: BACTRIM 160MG/800MG DS TAB PO SCH (09:47)
[2022-11-12] MEDS: LEVEMIR (INSULIN DETEMIR) 1 UNITS/0.01ML SC SCH (09:47)
[2022-11-12] MEDS: DIVALPROEX 250MG *ER* TAB PO SCH ×2 (09:47→22:50)
[2022-11-12] MEDS: INSULIN LISPRO (NovoLOG) PER UNIT SC SCH ×4 (09:48→22:52)
[2022-11-12] MEDS: cefTRIAXone SOD 2 GM in D5W MINI-BAG PLUS 50 ML IV SCH (12:56)
[2022-11-12] MEDS: BIKTARVY 50 MG/200 MG/25 MG TAB (PATIENT'S OWN MED) PO SCH (22:51)
[2022-11-12] MEDS: ACETAMINOPHEN TAB 650MG DOSE (2X325MG) PO PRN (22:53)
[2022-11-13] MEDS: SODIUM CHLORIDE 0.9% INJ 10 ML SYR IV PRN ×2 (00:24→05:24)
[2022-11-13 05:22] VITALS: BP 106/64
[2022-11-13] MEDS: metroNIDAZOLE 500 MG in IV 1 EA IV SCH ×3 (05:23→22:00)
[2022-11-13] MEDS: SODIUM CHLORIDE 0.9% INJ 10 ML SYR IV SCH ×2 (06:53→18:00)
[2022-11-13] MEDS: LEVEMIR (INSULIN DETEMIR) 1 UNITS/0.01ML SC SCH (08:31)
[2022-11-13] MEDS: levETIRAcetam 250MG TABLET (KEPPRA) PO SCH ×2 (08:32→21:58)
[2022-11-13] MEDS: INSULIN LISPRO (NovoLOG) PER UNIT SC SCH ×4 (08:32→21:00)
[2022-11-13] MEDS: PANTOPRAZOLE 40MG TAB (PROTONIX) PO SCH (08:32)
[2022-11-13] MEDS: BACTRIM 160MG/800MG DS TAB PO SCH (08:32)
[2022-11-13] MEDS: DIVALPROEX 250MG *ER* TAB PO SCH ×2 (08:39→21:58)
[2022-11-13] MEDS: ENOXAPARIN 40MG/0.4ML SYRINGE (J1650 PER 10MG) SC SCH (09:00)
[2022-11-13] MEDS: cefTRIAXone SOD 2 GM in D5W MINI-BAG PLUS 50 ML IV SCH (14:57)
[2022-11-13] MEDS: HYDROCORTISONE 2.5% 20GM OINTMENT TOP SCH (21:57)
[2022-11-13] MEDS: BIKTARVY 50 MG/200 MG/25 MG TAB (PATIENT'S OWN MED) PO SCH (21:59)
[2022-11-13] MEDS: ACETAMINOPHEN TAB 650MG DOSE (2X325MG) PO PRN (21:59)
[2022-11-14] MEDS: metroNIDAZOLE 500 MG in IV 1 EA IV SCH ×3 (05:24→21:45)
[2022-11-14] MEDS: SODIUM CHLORIDE 0.9% INJ 10 ML SYR IV SCH ×2 (05:24→18:00)
[2022-11-14 06:00] VITALS: BP 145/85
[2022-11-14] MEDS: LEVEMIR (INSULIN DETEMIR) 1 UNITS/0.01ML SC SCH (08:34)
[2022-11-14] MEDS: INSULIN LISPRO (NovoLOG) PER UNIT SC SCH ×4 (08:35→21:00)
[2022-11-14] MEDS: PANTOPRAZOLE 40MG TAB (PROTONIX) PO SCH (08:35)
[2022-11-14] MEDS: BACTRIM 160MG/800MG DS TAB PO SCH (08:35)
[2022-11-14] MEDS: levETIRAcetam 250MG TABLET (KEPPRA) PO SCH ×2 (08:35→21:43)
[2022-11-14] MEDS: HYDROCORTISONE 2.5% 20GM OINTMENT TOP SCH (08:36)
[2022-11-14] MEDS: ENOXAPARIN 40MG/0.4ML SYRINGE (J1650 PER 10MG) SC SCH (08:36)
[2022-11-14] MEDS: DIVALPROEX 250MG *ER* TAB PO SCH ×2 (08:39→21:43)
[2022-11-14] MEDS: cefTRIAXone SOD 2 GM in D5W MINI-BAG PLUS 50 ML IV SCH (15:20)
[2022-11-14] MEDS: BIKTARVY 50 MG/200 MG/25 MG TAB (PATIENT'S OWN MED) PO SCH (21:43)
[2022-11-14] MEDS: ACETAMINOPHEN TAB 650MG DOSE (2X325MG) PO PRN (21:59)
[2022-11-15 05:30] VITALS: BP 104/64
[2022-11-15] MEDS: metroNIDAZOLE 500 MG in IV 1 EA IV SCH ×3 (06:00→21:44)
[2022-11-15 06:23] LABS: EOS # 0.1 10^3/uL (0.0-0.5); EOS % 3.9 % (0.0-3.0); HEMATOCRIT 27.9 % (42.0-52.0); HEMOGLOBIN 8.6 g/dl (13.5-17.5); LYMPH # 1.6 10^3/uL (1.5-5.0); LYMPH % 51.6 % (24.0-44.0); MEAN CORPUSCULAR HEMOGLOBIN 27.7 pg (27.0-33.0); MEAN CORPUSCULAR HGB CONC 30.8 g/dl (32.0-36.5); MONO # 0.7 10^3/uL (0.0-0.8); MONO % 23.4 % (2.0-8.0); NEUTROPHILS % 19.8 % (36.0-66.0); PLATELET COUNT, AUTOMATED 116 10^3/uL (150-450)
[2022-11-15 06:40] LABS: BLOOD UREA NITROGEN 10 MG/DL (9-23); CALCIUM LEVEL 7.5 MG/DL (8.5-10.1); CARBON DIOXIDE LEVEL 25 MMOL/L (20-31); CHLORIDE LEVEL 104 MMOL/L (98-107); CREATININE FOR GFR 0.59 MG/DL (0.70-1.30); GLOMERULAR FILTRATION RATE > 60.0 (>56); GLUCOSE, FASTING 273 MG/DL (60-100); POTASSIUM SERUM 3.8 MMOL/L (3.5-5.1); SODIUM LEVEL 138 MMOL/L (136-145)
[2022-11-15] MEDS: SODIUM CHLORIDE 0.9% INJ 10 ML SYR IV SCH ×2 (07:03→16:49)
[2022-11-15 07:46] LABS: NEUTROPHILS # 0.6 10^3/uL (1.5-8.5)
[2022-11-15] MEDS: LEVEMIR (INSULIN DETEMIR) 1 UNITS/0.01ML SC SCH (08:29)
[2022-11-15] MEDS: PANTOPRAZOLE 40MG TAB (PROTONIX) PO SCH (08:29)
[2022-11-15] MEDS: DIVALPROEX 250MG *ER* TAB PO SCH ×2 (08:29→21:45)
[2022-11-15] MEDS: levETIRAcetam 250MG TABLET (KEPPRA) PO SCH ×2 (08:29→21:45)
[2022-11-15] MEDS: BACTRIM 160MG/800MG DS TAB PO SCH (08:29)
[2022-11-15] MEDS: INSULIN LISPRO (NovoLOG) PER UNIT SC SCH ×4 (08:30→20:07)
[2022-11-15] MEDS: ENOXAPARIN 40MG/0.4ML SYRINGE (J1650 PER 10MG) SC SCH (08:30)
[2022-11-15] MEDS: HYDROCORTISONE 2.5% 20GM OINTMENT TOP SCH (08:31)
[2022-11-15] MEDS: cefTRIAXone SOD 2 GM in D5W MINI-BAG PLUS 50 ML IV SCH (13:10)
[2022-11-15] MEDS: ACETAMINOPHEN TAB 650MG DOSE (2X325MG) PO PRN (16:55)
[2022-11-15] MEDS ORDERED: FUROSEMIDE 20MG/2ML VIAL IV ONE (17:30)
[2022-11-15] MEDS: BIKTARVY 50 MG/200 MG/25 MG TAB (PATIENT'S OWN MED) PO SCH (21:45)
[2022-11-16 05:20] VITALS: BP 112/64
[2022-11-16] MEDS: metroNIDAZOLE 500 MG in IV 1 EA IV SCH ×3 (05:25→22:28)
[2022-11-16] MEDS: SODIUM CHLORIDE 0.9% INJ 10 ML SYR IV SCH ×2 (06:49→15:10)
[2022-11-16] MEDS: DIVALPROEX 250MG *ER* TAB PO SCH ×2 (07:56→20:35)
[2022-11-16] MEDS: PANTOPRAZOLE 40MG TAB (PROTONIX) PO SCH (07:56)
[2022-11-16] MEDS: BACTRIM 160MG/800MG DS TAB PO SCH (07:56)
[2022-11-16] MEDS: LEVEMIR (INSULIN DETEMIR) 1 UNITS/0.01ML SC SCH (07:57)
[2022-11-16] MEDS: INSULIN LISPRO (NovoLOG) PER UNIT SC SCH ×4 (07:57→21:00)
[2022-11-16] MEDS: levETIRAcetam 250MG TABLET (KEPPRA) PO SCH ×2 (07:57→20:36)
[2022-11-16] MEDS: HYDROCORTISONE 2.5% 20GM OINTMENT TOP SCH (07:58)
[2022-11-16] MEDS: ENOXAPARIN 40MG/0.4ML SYRINGE (J1650 PER 10MG) SC SCH (07:58)
[2022-11-16] MEDS: cefTRIAXone SOD 2 GM in D5W MINI-BAG PLUS 50 ML IV SCH (13:18)
[2022-11-16] MEDS: BIKTARVY 50 MG/200 MG/25 MG TAB (PATIENT'S OWN MED) PO SCH (20:36)
[2022-11-16] MEDS: SODIUM CHLORIDE 0.9% INJ 10 ML SYR IV PRN (23:48)
[2022-11-17 05:20] VITALS: BP 108/54
[2022-11-17] MEDS: metroNIDAZOLE 500 MG in IV 1 EA IV SCH ×3 (05:29→21:04)
[2022-11-17] MEDS: SODIUM CHLORIDE 0.9% INJ 10 ML SYR IV SCH ×2 (05:31→15:34)
[2022-11-17] MEDS: INSULIN LISPRO (NovoLOG) PER UNIT SC SCH ×4 (07:10→20:56)
[2022-11-17] MEDS: PANTOPRAZOLE 40MG TAB (PROTONIX) PO SCH (09:13)
[2022-11-17] MEDS: BACTRIM 160MG/800MG DS TAB PO SCH (09:13)
[2022-11-17] MEDS: levETIRAcetam 250MG TABLET (KEPPRA) PO SCH ×2 (09:13→20:15)
[2022-11-17] MEDS: ENOXAPARIN 40MG/0.4ML SYRINGE (J1650 PER 10MG) SC SCH (09:14)
[2022-11-17] MEDS: LEVEMIR (INSULIN DETEMIR) 1 UNITS/0.01ML SC SCH (09:14)
[2022-11-17] MEDS: DIVALPROEX 250MG *ER* TAB PO SCH ×2 (09:14→20:14)
[2022-11-17] MEDS: ACETAMINOPHEN TAB 650MG DOSE (2X325MG) PO PRN (09:15)
[2022-11-17] MEDS: HYDROCORTISONE 2.5% 20GM OINTMENT TOP SCH (09:16)
[2022-11-17] MEDS: cefTRIAXone SOD 2 GM in D5W MINI-BAG PLUS 50 ML IV SCH (13:18)
[2022-11-17] MEDS: BIKTARVY 50 MG/200 MG/25 MG TAB (PATIENT'S OWN MED) PO SCH (20:15)
[2022-11-17] MEDS: SODIUM CHLORIDE 0.9% INJ 10 ML SYR IV PRN (22:33)
[2022-11-18] MEDS: metroNIDAZOLE 500 MG in IV 1 EA IV SCH ×3 (05:23→21:32)
[2022-11-18 06:00] VITALS: BP 163/83
[2022-11-18] MEDS: SODIUM CHLORIDE 0.9% INJ 10 ML SYR IV SCH ×2 (06:50→17:56)
[2022-11-18] MEDS: INSULIN LISPRO (NovoLOG) PER UNIT SC SCH ×4 (08:25→20:56)
[2022-11-18] MEDS: ENOXAPARIN 40MG/0.4ML SYRINGE (J1650 PER 10MG) SC SCH (08:26)
[2022-11-18] MEDS: levETIRAcetam 250MG TABLET (KEPPRA) PO SCH ×2 (08:26→21:31)
[2022-11-18] MEDS: LEVEMIR (INSULIN DETEMIR) 1 UNITS/0.01ML SC SCH (08:26)
[2022-11-18] MEDS: DIVALPROEX 250MG *ER* TAB PO SCH ×2 (08:27→21:32)
[2022-11-18] MEDS: BACTRIM 160MG/800MG DS TAB PO SCH (08:27)
[2022-11-18] MEDS: PANTOPRAZOLE 40MG TAB (PROTONIX) PO SCH (08:27)
[2022-11-18] MEDS: HYDROCORTISONE 2.5% 20GM OINTMENT TOP SCH (08:28)
[2022-11-18] MEDS: cefTRIAXone SOD 2 GM in D5W MINI-BAG PLUS 50 ML IV SCH (13:34)
[2022-11-18] MEDS: BIKTARVY 50 MG/200 MG/25 MG TAB (PATIENT'S OWN MED) PO SCH (21:32)
[2022-11-19] MEDS: ACETAMINOPHEN TAB 650MG DOSE (2X325MG) PO PRN ×2 (03:26→21:42)
[2022-11-19] MEDS: metroNIDAZOLE 500 MG in IV 1 EA IV SCH ×3 (05:05→21:12)
[2022-11-19 06:00] VITALS: BP_SYST 122; BP_SYST 90; BP_DIAS 48; BP_DIAS 69
[2022-11-19] MEDS: SODIUM CHLORIDE 0.9% INJ 10 ML SYR IV SCH ×2 (06:39→16:45)
[2022-11-19] MEDS: INSULIN LISPRO (NovoLOG) PER UNIT SC SCH ×4 (08:23→21:11)
[2022-11-19] MEDS: PANTOPRAZOLE 40MG TAB (PROTONIX) PO SCH (08:23)
[2022-11-19] MEDS: LEVEMIR (INSULIN DETEMIR) 1 UNITS/0.01ML SC SCH (08:23)
[2022-11-19] MEDS: BACTRIM 160MG/800MG DS TAB PO SCH (08:24)
[2022-11-19] MEDS: DIVALPROEX 250MG *ER* TAB PO SCH ×2 (08:24→21:07)
[2022-11-19] MEDS: ENOXAPARIN 40MG/0.4ML SYRINGE (J1650 PER 10MG) SC SCH (08:24)
[2022-11-19] MEDS: levETIRAcetam 250MG TABLET (KEPPRA) PO SCH ×2 (08:24→21:06)
[2022-11-19] MEDS: HYDROCORTISONE 2.5% 20GM OINTMENT TOP SCH (08:25)
[2022-11-19] MEDS: cefTRIAXone SOD 2 GM in D5W MINI-BAG PLUS 50 ML IV SCH (14:16)
[2022-11-19 20:08] VITALS: BP 114/60
[2022-11-19] MEDS: BIKTARVY 50 MG/200 MG/25 MG TAB (PATIENT'S OWN MED) PO SCH (21:10)
[2022-11-19] MEDS: SODIUM CHLORIDE 0.9% INJ 10 ML SYR IV PRN (22:52)
[2022-11-20] MEDS ORDERED: HYDROCORTISONE 2.5% 20GM OINTMENT TOP PRN (04:15)
[2022-11-20 05:06] VITALS: BP 139/73
[2022-11-20] MEDS: metroNIDAZOLE 500 MG in IV 1 EA IV SCH (05:41)
[2022-11-20] MEDS: SODIUM CHLORIDE 0.9% INJ 10 ML SYR IV SCH (05:43)
[2022-11-20] MEDS ORDERED: BACTDSTA PO (07:21)
[2022-11-20] MEDS ORDERED: CEFT2INJ4 IV (07:21)
[2022-11-20] MEDS ORDERED: DIVA250T67 PO (07:21)
[2022-11-20] MEDS ORDERED: METR5INJ IV (07:21)
[2022-11-20] MEDS ORDERED: KEPP250T5 PO (07:21)
[2022-11-20] MEDS: PANTOPRAZOLE 40MG TAB (PROTONIX) PO SCH (08:28)
[2022-11-20] MEDS: levETIRAcetam 250MG TABLET (KEPPRA) PO SCH (08:28)
[2022-11-20] MEDS: ENOXAPARIN 40MG/0.4ML SYRINGE (J1650 PER 10MG) SC SCH (08:28)
[2022-11-20] MEDS: BACTRIM 160MG/800MG DS TAB PO SCH (08:28)
[2022-11-20] MEDS: DIVALPROEX 250MG *ER* TAB PO SCH (08:28)
[2022-11-20] MEDS: LEVEMIR (INSULIN DETEMIR) 1 UNITS/0.01ML SC SCH (08:29)
[2022-11-20] MEDS: INSULIN LISPRO (NovoLOG) PER UNIT SC SCH (08:29)
== END 2022-11-20 09:07 | disposition short-term general hospital (02) | DRG 917 ==
LOC: M ED 20:22 → M ED INP 23:48 → ENRESERV 10-18 01:43 → M ICU 10-18 02:59 → M MSPAV 11-03 15:42
PROVIDERS: ADMIT Internal Medicine; ATTEND Internal Medicine
PROC: 0BH17EZ Insertion of Endotracheal Airway into Trachea, Via Natural or Artificial Opening (ICD-10-PCS; principal; 2022-10-17)
PROC: 5A1935Z Respiratory Ventilation, Less than 24 Consecutive Hours (ICD-10-PCS; 2022-10-17)
PROC: 009U3ZX Drainage of Spinal Canal, Percutaneous Approach, Diagnostic (ICD-10-PCS; 2022-10-17)
PROC: 02HV33Z Insertion of Infusion Device into Superior Vena Cava, Percutaneous Approach (ICD-10-PCS; 2022-10-21)
PROC: B246ZZZ Ultrasonography of Right and Left Heart (ICD-10-PCS; 2022-10-24)
PROC: 0W9930Z Drainage of Right Pleural Cavity with Drainage Device, Percutaneous Approach (ICD-10-PCS; 2022-10-24)
PROC: 3E0L3GC Introduction of Other Therapeutic Substance into Pleural Cavity, Percutaneous Approach (ICD-10-PCS; 2022-10-25)
PROC: 3E0L3GC Introduction of Other Therapeutic Substance into Pleural Cavity, Percutaneous Approach (ICD-10-PCS; 2022-10-26)
PROC: 0W9930Z Drainage of Right Pleural Cavity with Drainage Device, Percutaneous Approach (ICD-10-PCS; 2022-10-28)
DX: T40.1X1A Poisoning by heroin, accidental (unintentional), initial encounter (principal); J69.0 Pneumonitis due to inhalation of food and vomit; E11.10 Type 2 diabetes mellitus with ketoacidosis without coma; J96.01 Acute respiratory failure with hypoxia; G06.0 Intracranial abscess and granuloma; J86.9 Pyothorax without fistula; G93.41 Metabolic encephalopathy; G93.6 Cerebral edema; E87.0 Hyperosmolality and hypernatremia; J90 Pleural effusion, not elsewhere classified; B20 Human immunodeficiency virus [HIV] disease; E87.3 Alkalosis; R78.81 Bacteremia; C72.9 Malignant neoplasm of central nervous system, unspecified; K02.9 Dental caries, unspecified; G40.901 Epilepsy, unspecified, not intractable, with status epilepticus; B95.5 Unspecified streptococcus as the cause of diseases classified elsewhere; D50.9 Iron deficiency anemia, unspecified; E87.6 Hypokalemia; E83.42 Hypomagnesemia; R19.7 Diarrhea, unspecified; B95.8 Unspecified staphylococcus as the cause of diseases classified elsewhere; E11.65 Type 2 diabetes mellitus with hyperglycemia; L23.9 Allergic contact dermatitis, unspecified cause; G47.33 Obstructive sleep apnea (adult) (pediatric); Z79.899 Other long term (current) drug therapy; Z85.048 Personal history of other malignant neoplasm of rectum, rectosigmoid junction, and anus; Z91.14 Patient's other noncompliance with medication regimen

== ENCOUNTER 2022-11-29 16:24 | Inpatient (IN) | payer MEDICARE, OTHER ==
[~2022-11-29] VITALS: Ht 180.3 cm; Wt 111.6 kg
[~2022-11-29 16:24] MED LIST changes: +BACTDSTA PO; +CEFT2INJ4 IV; +DIVA250T67 PO; +EMTR1TAB16 PO; +GLIP5TAB8 PO; +KEPP250T5 PO; +METR5INJ IV; +NESI25TA PO; +VALG450T10 PO
[2022-11-29 18:27] LABS: BASO % 0.7 % (0.0-1.0); EOS # 0.1 10^3/uL (0.0-0.5); EOS % 3.7 % (0.0-3.0); HEMATOCRIT 35.2 % (42.0-52.0); HEMOGLOBIN 11.4 g/dl (13.5-17.5); LYMPH # 0.7 10^3/uL (1.5-5.0); LYMPH % 22.3 % (24.0-44.0); MEAN CORPUSCULAR HEMOGLOBIN 28.2 pg (27.0-33.0); MEAN CORPUSCULAR HGB CONC 32.4 g/dl (32.0-36.5); MEAN CORPUSCULAR VOLUME 87.1 fl (80.0-96.0); MONO # 0.4 10^3/uL (0.0-0.8); MONO % 13.3 % (2.0-8.0); NEUTROPHILS # 1.8 10^3/uL (1.5-8.5); NEUTROPHILS % 59.3 % (36.0-66.0); PLATELET COUNT, AUTOMATED 142 10^3/uL (150-450); RED BLOOD COUNT 4.04 10^6/uL (4.30-6.10)
[2022-11-29 19:38] LABS: RSV AMPLIFICATION NEGATIVE (NEGATIVE)
[2022-11-29] MEDS: COMBIVENT RESPIMAT 100-20MCG INHALER 4GM INH SCH (20:00)
[2022-11-29 20:16] LABS: ALBUMIN 2.9 G/DL (3.2-5.2); ALKALINE PHOSPHATASE 187 U/L (46-116); ALT/SGPT 10 U/L (7.0-40); AST/SGOT 17 U/L (<34); BILIRUBIN,DIRECT 0.1 MG/DL (<0.4); BILIRUBIN,TOTAL 0.3 MG/DL (0.3-1.2); BLOOD UREA NITROGEN 11 MG/DL (9-23); CALCIUM LEVEL 8.6 MG/DL (8.5-10.1); CARBON DIOXIDE LEVEL 25 MMOL/L (20-31); CHLORIDE LEVEL 103 MMOL/L (98-107); CREATININE FOR GFR 0.65 MG/DL (0.70-1.30); GLOMERULAR FILTRATION RATE > 60.0 (>56); GLUCOSE, FASTING 262 MG/DL (60-100); POTASSIUM SERUM 3.9 MMOL/L (3.5-5.1); SODIUM LEVEL 139 MMOL/L (136-145); TOTAL PROTEIN 7.5 G/DL (5.7-8.2)
[2022-11-29] MEDS ORDERED: GLUCOSE 4GM CHEW TABLET PO PRN (21:30)
[2022-11-29] MEDS ORDERED: GLUCAGON INJ 1MG VIAL SC PRN (21:30)
[2022-11-29] MEDS ORDERED: DEXTROSE 50% 50ML SYRINGE IV PRN (21:30)
[2022-11-29] MEDS ORDERED: cefTRIAXone SOD 2GM VIAL IM SCH (22:15)
[2022-11-29] MEDS ORDERED: LORazepam 0.5 MG TAB PO PRN (22:15)
[2022-11-29] MEDS ORDERED: IPRA0.00 NEB (22:43)
[2022-11-29] MEDS ORDERED: BIKT1TAB PO (22:43)
[2022-11-29] MEDS ORDERED: OLAN1TAB16 PO (22:43)
[2022-11-29] MEDS ORDERED: BACTDSTA PO (22:43)
[2022-11-29] MEDS ORDERED: DIVA500T94 PO (22:43)
[2022-11-29] MEDS ORDERED: ERGO500029 PO (22:43)
[2022-11-29] MEDS ORDERED: PANT-23 PO (22:43)
[2022-11-29] MEDS ORDERED: LEVE500T5 PO (22:43)
[2022-11-29] MEDS ORDERED: METR-265 PO (22:43)
[2022-11-29] MEDS ORDERED: HOME MED LIST COMPLETE! XX SCH (22:45)
[2022-11-29] MEDS ORDERED: metroNIDAZOLE 500 MG in IV 1 EA IV SCH (23:00)
[2022-11-29] MEDS ORDERED: levETIRAcetam 250MG TABLET (KEPPRA) PO SCH (23:15)
[2022-11-30 00:05] VITALS: BP 152/100
[2022-11-30] MEDS ORDERED: cefTRIAXone SOD 2 GM in D5W MINI-BAG PLUS 50 ML IV SCH (01:00)
[2022-11-30] MEDS: levETIRAcetam 250MG TABLET (KEPPRA) PO SCH ×3 (01:03→21:35)
[2022-11-30] MEDS: metroNIDAZOLE (FLAGYL) 500MG TABLET PO SCH ×4 (01:03→21:35)
[2022-11-30] MEDS: DIVALPROEX 500 MG TAB PO SCH ×3 (01:03→21:35)
[2022-11-30] MEDS: ACETAMINOPHEN TAB 650MG DOSE (2X325MG) PO PRN ×2 (01:04→21:36)
[2022-11-30 06:00] VITALS: BP 120/61
[2022-11-30 06:55] LABS: HEMATOCRIT 33.8 % (42.0-52.0); MEAN CORPUSCULAR HEMOGLOBIN 28.6 pg (27.0-33.0); MEAN CORPUSCULAR HGB CONC 32.5 g/dl (32.0-36.5); PLATELET COUNT, AUTOMATED 118 10^3/uL (150-450); RED BLOOD COUNT 3.84 10^6/uL (4.30-6.10); WHITE BLOOD COUNT 3.4 10^3/uL (4.0-10.0)
[2022-11-30 07:19] LABS: MAGNESIUM LEVEL 1.6 MG/DL (1.8-2.4)
[2022-11-30 07:21] LABS: ALBUMIN 2.5 G/DL (3.2-5.2); ALKALINE PHOSPHATASE 129 U/L (46-116); ALT/SGPT < 9 U/L (7.0-40); AST/SGOT 18 U/L (<34); BILIRUBIN,TOTAL 0.3 MG/DL (0.3-1.2); BLOOD UREA NITROGEN 11 MG/DL (9-23); CALCIUM LEVEL 8.1 MG/DL (8.5-10.1); CARBON DIOXIDE LEVEL 26 MMOL/L (20-31); CHLORIDE LEVEL 104 MMOL/L (98-107); CREATININE FOR GFR 0.65 MG/DL (0.70-1.30); GLOMERULAR FILTRATION RATE > 60.0 (>56); GLUCOSE, FASTING 149 MG/DL (60-100); POTASSIUM SERUM 3.8 MMOL/L (3.5-5.1); SODIUM LEVEL 140 MMOL/L (136-145); TOTAL PROTEIN 6.6 G/DL (5.7-8.2)
[2022-11-30] MEDS: COMBIVENT RESPIMAT 100-20MCG INHALER 4GM INH SCH ×2 (07:56→11:36)
[2022-11-30] MEDS ORDERED: MAG SULF 1GM/100ML (MAG RUN) 1 GM in IV 1 EA IV ONE (08:00)
[2022-11-30] MEDS: NS 1,000 ML IV SCH ×2 (08:29→19:54)
[2022-11-30] MEDS: INSULIN LISPRO (NovoLOG) PER UNIT SC SCH ×4 (08:30→21:00)
[2022-11-30] MEDS: MAGNESIUM OXIDE 400MG TAB (MAG-OX) PO SCH ×2 (08:30→21:35)
[2022-11-30] MEDS: BACTRIM 160MG/800MG DS TAB PO SCH (08:30)
[2022-11-30] MEDS: VITAMIN D 50,000 UNITS CAPSULE (ERGOCALCIFEROL 1.25MG) PO SCH (08:30)
[2022-11-30] MEDS: PANTOPRAZOLE 40MG TAB (PROTONIX) PO SCH (08:30)
[2022-11-30] MEDS: OLANZapine 5 MG TAB PO SCH (08:31)
[2022-11-30] MEDS: ENOXAPARIN 40MG/0.4ML SYRINGE (J1650 PER 10MG) SC SCH (08:31)
[2022-11-30] MEDS: [UNRECOGNIZED DRUG - OTHER] PO SCH (08:31)
[2022-11-30] MEDS ORDERED: IPRATROPIUM 0.5MG/ALBUTEROL 2.5MG INH SOL UD 3ML (DUONEB) NEB SCH (09:00)
[2022-11-30] MEDS ORDERED: LEVALBUTEROL 1.25MG 0.5ML CONCENTRATE NEB NEB PRN (11:40)
[2022-11-30] MEDS ORDERED: LEVALBUTEROL HFA 45MCG/ACT 15GM INHALER INH PRN (11:40)
[2022-11-30 14:15] VITALS: BP 128/65
[2022-11-30] MEDS: cefTRIAXone SOD 2 GM in D5W MINI-BAG PLUS 50 ML IV SCH (21:35)
[2022-11-30 22:05] VITALS: BP 116/65
[2022-11-30] MEDS: FLUTICASONE PROP 0.05% NASAL SPRAY 16 GM (FLONASE) NARES SCH (23:24)
[2022-12-01] MEDS: metroNIDAZOLE (FLAGYL) 500MG TABLET PO SCH ×3 (05:20→21:48)
[2022-12-01] MEDS: ACETAMINOPHEN TAB 650MG DOSE (2X325MG) PO PRN ×2 (05:21→21:48)
[2022-12-01 05:54] VITALS: BP 133/74
[2022-12-01 06:58] LABS: HEMATOCRIT 30.1 % (42.0-52.0); HEMOGLOBIN 9.7 g/dl (13.5-17.5); MEAN CORPUSCULAR HEMOGLOBIN 28.4 pg (27.0-33.0); MEAN CORPUSCULAR HGB CONC 32.2 g/dl (32.0-36.5); PLATELET COUNT, AUTOMATED 111 10^3/uL (150-450); RED BLOOD COUNT 3.42 10^6/uL (4.30-6.10); WHITE BLOOD COUNT 3.3 10^3/uL (4.0-10.0)
[2022-12-01 07:27] LABS: MAGNESIUM LEVEL 1.6 MG/DL (1.8-2.4)
[2022-12-01 07:32] LABS: ALBUMIN 2.2 G/DL (3.2-5.2); ALKALINE PHOSPHATASE 117 U/L (46-116); ALT/SGPT 10 U/L (7.0-40); AST/SGOT 35 U/L (<34); BILIRUBIN,TOTAL 0.2 MG/DL (0.3-1.2); BLOOD UREA NITROGEN 11 MG/DL (9-23); CALCIUM LEVEL 7.1 MG/DL (8.5-10.1); CARBON DIOXIDE LEVEL 22 MMOL/L (20-31); CHLORIDE LEVEL 102 MMOL/L (98-107); GLOMERULAR FILTRATION RATE > 60.0 (>56); GLUCOSE, FASTING 200 MG/DL (60-100); POTASSIUM SERUM 3.9 MMOL/L (3.5-5.1); SODIUM LEVEL 133 MMOL/L (136-145); TOTAL PROTEIN 6.1 G/DL (5.7-8.2)
[2022-12-01] MEDS: LACTOBACILLUS ACIDOPHILUS CAP (BACID) PO SCH ×2 (08:42→18:56)
[2022-12-01] MEDS: PANTOPRAZOLE 40MG TAB (PROTONIX) PO SCH (08:42)
[2022-12-01] MEDS: levETIRAcetam 250MG TABLET (KEPPRA) PO SCH ×2 (08:42→21:46)
[2022-12-01] MEDS: OLANZapine 5 MG TAB PO SCH (08:42)
[2022-12-01] MEDS: FLUTICASONE PROP 0.05% NASAL SPRAY 16 GM (FLONASE) NARES SCH ×2 (08:42→23:55)
[2022-12-01] MEDS: MAGNESIUM OXIDE 400MG TAB (MAG-OX) PO SCH ×2 (08:43→21:47)
[2022-12-01] MEDS: BACTRIM 160MG/800MG DS TAB PO SCH (08:43)
[2022-12-01] MEDS: DIVALPROEX 500 MG TAB PO SCH ×2 (08:43→21:47)
[2022-12-01] MEDS: INSULIN LISPRO (NovoLOG) PER UNIT SC SCH ×4 (08:44→21:00)
[2022-12-01] MEDS: [UNRECOGNIZED DRUG - OTHER] PO SCH (08:44)
[2022-12-01] MEDS: LEVEMIR (INSULIN DETEMIR) 1 UNITS/0.01ML SC SCH (08:44)
[2022-12-01] MEDS: ENOXAPARIN 40MG/0.4ML SYRINGE (J1650 PER 10MG) SC SCH (08:45)
[2022-12-01] MEDS ORDERED: MAG SULF 1GM/100ML (MAG RUN) 1 GM in IV 1 EA IV ONE (09:00)
[2022-12-01 14:00] VITALS: BP 127/73
[2022-12-01] MEDS ORDERED: LIDOCAINE 1% MDV 20ML VIAL As Ordered ONE (15:01)
[2022-12-01] MEDS ORDERED: REMDESIVIR 200 MG in NS 250 ML IV ONE (17:00)
[2022-12-01] MEDS: SODIUM CHLORIDE 0.9% INJ 10 ML SYR IV SCH ×2 (18:57→21:52)
[2022-12-01] MEDS: cefTRIAXone SOD 2 GM in D5W MINI-BAG PLUS 50 ML IV SCH (21:46)
[2022-12-01 21:50] VITALS: BP 131/70
[2022-12-01] MEDS: NS 1,000 ML IV SCH (21:52)
[2022-12-01] MEDS ORDERED: IBUPROFEN 800 MG TAB PO ONE (23:00)
[2022-12-02 05:00] VITALS: BP 97/56
[2022-12-02] MEDS: SODIUM CHLORIDE 0.9% INJ 10 ML SYR IV SCH ×4 (05:01→18:00)
[2022-12-02] MEDS: metroNIDAZOLE (FLAGYL) 500MG TABLET PO SCH ×3 (05:01→21:21)
[2022-12-02 06:27] LABS: HEMATOCRIT 30.6 % (42.0-52.0); HEMOGLOBIN 9.9 g/dl (13.5-17.5); MEAN CORPUSCULAR HGB CONC 32.4 g/dl (32.0-36.5); MEAN CORPUSCULAR VOLUME 89.7 fl (80.0-96.0); PLATELET COUNT, AUTOMATED 108 10^3/uL (150-450); RED BLOOD COUNT 3.41 10^6/uL (4.30-6.10); WHITE BLOOD COUNT 2.8 10^3/uL (4.0-10.0)
[2022-12-02 06:51] LABS: MAGNESIUM LEVEL 1.7 MG/DL (1.8-2.4)
[2022-12-02 06:53] LABS: BILIRUBIN,DIRECT < 0.1 MG/DL (<0.4)
[2022-12-02 06:55] LABS: ALBUMIN 2.1 G/DL (3.2-5.2); ALKALINE PHOSPHATASE 113 U/L (46-116); ALT/SGPT 10 U/L (7.0-40); AST/SGOT 25 U/L (<34); BILIRUBIN,TOTAL < 0.2 MG/DL (0.3-1.2); BLOOD UREA NITROGEN 17 MG/DL (9-23); CALCIUM LEVEL 7.3 MG/DL (8.5-10.1); CARBON DIOXIDE LEVEL 24 MMOL/L (20-31); CHLORIDE LEVEL 103 MMOL/L (98-107); CREATININE FOR GFR 0.87 MG/DL (0.70-1.30); GLOMERULAR FILTRATION RATE > 60.0 (>56); GLUCOSE, FASTING 298 MG/DL (60-100); POTASSIUM SERUM 4.2 MMOL/L (3.5-5.1); SODIUM LEVEL 136 MMOL/L (136-145); TOTAL PROTEIN 5.7 G/DL (5.7-8.2)
[2022-12-02] MEDS: PANTOPRAZOLE 40MG TAB (PROTONIX) PO SCH (08:36)
[2022-12-02] MEDS: INSULIN LISPRO (NovoLOG) PER UNIT SC SCH ×4 (08:36→21:00)
[2022-12-02] MEDS: LACTOBACILLUS ACIDOPHILUS CAP (BACID) PO SCH ×2 (08:36→17:59)
[2022-12-02] MEDS: levETIRAcetam 250MG TABLET (KEPPRA) PO SCH ×2 (08:37→21:11)
[2022-12-02] MEDS: DIVALPROEX 500 MG TAB PO SCH ×2 (08:38→21:12)
[2022-12-02] MEDS: MAGNESIUM OXIDE 400MG TAB (MAG-OX) PO SCH ×2 (08:39→21:11)
[2022-12-02] MEDS: ENOXAPARIN 40MG/0.4ML SYRINGE (J1650 PER 10MG) SC SCH (08:39)
[2022-12-02] MEDS: BACTRIM 160MG/800MG DS TAB PO SCH (08:39)
[2022-12-02] MEDS: [UNRECOGNIZED DRUG - OTHER] PO SCH (08:40)
[2022-12-02] MEDS: LEVEMIR (INSULIN DETEMIR) 1 UNITS/0.01ML SC SCH (08:40)
[2022-12-02] MEDS: FLUTICASONE PROP 0.05% NASAL SPRAY 16 GM (FLONASE) NARES SCH ×2 (09:00→21:10)
[2022-12-02 14:00] VITALS: BP_SYST 107; BP_SYST 130; BP_DIAS 64; BP_DIAS 71
[2022-12-02] MEDS: REMDESIVIR 100 MG in NS 250 ML IV SCH (17:59)
[2022-12-02] MEDS: cefTRIAXone SOD 2 GM in D5W MINI-BAG PLUS 50 ML IV SCH (21:10)
[2022-12-02] MEDS: OLANZapine 5 MG TAB PO SCH (21:15)
[2022-12-02 23:28] VITALS: BP 111/65
[2022-12-03] MEDS: SODIUM CHLORIDE 0.9% INJ 10 ML SYR IV SCH ×4 (05:02→18:16)
[2022-12-03] MEDS: metroNIDAZOLE (FLAGYL) 500MG TABLET PO SCH ×3 (05:02→20:55)
[2022-12-03] MEDS: SODIUM CHLORIDE 0.9% INJ 10 ML SYR IV PRN (05:03)
[2022-12-03 07:02] VITALS: BP 108/62
[2022-12-03 07:18] LABS: BASO % 0.3 % (0.0-1.0); EOS # 0.1 10^3/uL (0.0-0.5); EOS % 3.8 % (0.0-3.0); HEMATOCRIT 29.8 % (42.0-52.0); HEMOGLOBIN 9.6 g/dl (13.5-17.5); LYMPH # 1.6 10^3/uL (1.5-5.0); MEAN CORPUSCULAR HEMOGLOBIN 28.2 pg (27.0-33.0); MEAN CORPUSCULAR HGB CONC 32.2 g/dl (32.0-36.5); MEAN CORPUSCULAR VOLUME 87.6 fl (80.0-96.0); MONO # 0.4 10^3/uL (0.0-0.8); MONO % 13.3 % (2.0-8.0); NEUTROPHILS % 31.5 % (36.0-66.0); PLATELET COUNT, AUTOMATED 107 10^3/uL (150-450); WHITE BLOOD COUNT 3.2 10^3/uL (4.0-10.0)
[2022-12-03 07:48] LABS: BLOOD UREA NITROGEN 17 MG/DL (9-23); CALCIUM LEVEL 7.6 MG/DL (8.5-10.1); CARBON DIOXIDE LEVEL 24 MMOL/L (20-31); CHLORIDE LEVEL 103 MMOL/L (98-107); CREATININE FOR GFR 0.76 MG/DL (0.70-1.30); GLOMERULAR FILTRATION RATE > 60.0 (>56); GLUCOSE, FASTING 308 MG/DL (60-100); POTASSIUM SERUM 4.5 MMOL/L (3.5-5.1); SODIUM LEVEL 136 MMOL/L (136-145)
[2022-12-03 08:11] LABS: LYMPH % 50.8 % (24.0-44.0)
[2022-12-03 08:46] LABS: ERYTHROCYTE SEDIMENTATION RATE 61 mm/hr (0-20)
[2022-12-03] MEDS: PANTOPRAZOLE 40MG TAB (PROTONIX) PO SCH (09:12)
[2022-12-03] MEDS: levETIRAcetam 250MG TABLET (KEPPRA) PO SCH ×2 (09:12→20:55)
[2022-12-03] MEDS: BACTRIM 160MG/800MG DS TAB PO SCH (09:12)
[2022-12-03] MEDS: LACTOBACILLUS ACIDOPHILUS CAP (BACID) PO SCH ×2 (09:12→18:15)
[2022-12-03] MEDS: FLUTICASONE PROP 0.05% NASAL SPRAY 16 GM (FLONASE) NARES SCH ×2 (09:13→20:56)
[2022-12-03] MEDS: ENOXAPARIN 40MG/0.4ML SYRINGE (J1650 PER 10MG) SC SCH (09:13)
[2022-12-03] MEDS: DIVALPROEX 500 MG TAB PO SCH ×2 (09:13→20:55)
[2022-12-03] MEDS: MAGNESIUM OXIDE 400MG TAB (MAG-OX) PO SCH ×2 (09:13→20:55)
[2022-12-03] MEDS: [UNRECOGNIZED DRUG - OTHER] PO SCH (09:14)
[2022-12-03] MEDS: INSULIN LISPRO (NovoLOG) PER UNIT SC SCH ×4 (09:14→23:24)
[2022-12-03] MEDS: LEVEMIR (INSULIN DETEMIR) 1 UNITS/0.01ML SC SCH (09:15)
[2022-12-03 14:00] VITALS: BP 108/61
[2022-12-03] MEDS: REMDESIVIR 100 MG in NS 250 ML IV SCH (18:15)
[2022-12-03] MEDS: cefTRIAXone SOD 2 GM in D5W MINI-BAG PLUS 50 ML IV SCH (20:53)
[2022-12-03] MEDS: OLANZapine 5 MG TAB PO SCH (20:55)
[2022-12-04 05:50] VITALS: BP 123/77
[2022-12-04] MEDS: metroNIDAZOLE (FLAGYL) 500MG TABLET PO SCH ×3 (06:30→22:24)
[2022-12-04] MEDS: SODIUM CHLORIDE 0.9% INJ 10 ML SYR IV SCH ×4 (06:31→18:11)
[2022-12-04 08:59] LABS: EOS # 0.2 10^3/uL (0.0-0.5); HEMATOCRIT 33.3 % (42.0-52.0); HEMOGLOBIN 10.7 g/dl (13.5-17.5); LYMPH # 1.1 10^3/uL (1.5-5.0); MEAN CORPUSCULAR HEMOGLOBIN 27.9 pg (27.0-33.0); MEAN CORPUSCULAR HGB CONC 32.1 g/dl (32.0-36.5); MEAN CORPUSCULAR VOLUME 86.9 fl (80.0-96.0); MONO # 0.2 10^3/uL (0.0-0.8); MONO % 10.7 % (2.0-8.0); NEUTROPHILS % 28.8 % (36.0-66.0); PLATELET COUNT, AUTOMATED 121 10^3/uL (150-450); RED BLOOD COUNT 3.83 10^6/uL (4.30-6.10); WHITE BLOOD COUNT 2.2 10^3/uL (4.0-10.0)
[2022-12-04 09:29] LABS: BLOOD UREA NITROGEN 13 MG/DL (9-23); CALCIUM LEVEL 7.6 MG/DL (8.5-10.1); CARBON DIOXIDE LEVEL 28 MMOL/L (20-31); CHLORIDE LEVEL 103 MMOL/L (98-107); GLOMERULAR FILTRATION RATE > 60.0 (>56); GLUCOSE, FASTING 281 MG/DL (60-100); POTASSIUM SERUM 4.4 MMOL/L (3.5-5.1); SODIUM LEVEL 136 MMOL/L (136-145)
[2022-12-04 09:41] LABS: NEUTROPHILS # 0.6 10^3/uL (1.5-8.5)
[2022-12-04] MEDS: INSULIN LISPRO (NovoLOG) PER UNIT SC SCH ×4 (09:45→22:09)
[2022-12-04] MEDS: LEVEMIR (INSULIN DETEMIR) 1 UNITS/0.01ML SC SCH (09:46)
[2022-12-04] MEDS: ENOXAPARIN 40MG/0.4ML SYRINGE (J1650 PER 10MG) SC SCH (09:46)
[2022-12-04] MEDS: PANTOPRAZOLE 40MG TAB (PROTONIX) PO SCH (09:47)
[2022-12-04] MEDS: [UNRECOGNIZED DRUG - OTHER] PO SCH (09:47)
[2022-12-04] MEDS: levETIRAcetam 250MG TABLET (KEPPRA) PO SCH ×2 (09:48→22:24)
[2022-12-04] MEDS: BACTRIM 160MG/800MG DS TAB PO SCH (09:49)
[2022-12-04] MEDS: DIVALPROEX 500 MG TAB PO SCH ×2 (09:49→22:24)
[2022-12-04] MEDS: LACTOBACILLUS ACIDOPHILUS CAP (BACID) PO SCH ×2 (09:49→18:15)
[2022-12-04] MEDS: MAGNESIUM OXIDE 400MG TAB (MAG-OX) PO SCH ×2 (09:50→22:24)
[2022-12-04] MEDS: FLUTICASONE PROP 0.05% NASAL SPRAY 16 GM (FLONASE) NARES SCH ×2 (09:50→22:24)
[2022-12-04 14:00] VITALS: BP 110/75
[2022-12-04] MEDS: REMDESIVIR 100 MG in NS 250 ML IV SCH (16:39)
[2022-12-04 22:00] VITALS: BP 122/66
[2022-12-04] MEDS: cefTRIAXone SOD 2 GM in D5W MINI-BAG PLUS 50 ML IV SCH (22:23)
[2022-12-04] MEDS: OLANZapine 5 MG TAB PO SCH (22:24)
[2022-12-05] MEDS: SODIUM CHLORIDE 0.9% INJ 10 ML SYR IV SCH ×4 (06:17→17:24)
[2022-12-05] MEDS: metroNIDAZOLE (FLAGYL) 500MG TABLET PO SCH ×3 (06:17→22:34)
[2022-12-05 06:21] VITALS: BP 115/62
[2022-12-05 06:22] LABS: HEMATOCRIT 30.7 % (42.0-52.0); HEMOGLOBIN 9.8 g/dl (13.5-17.5); MEAN CORPUSCULAR HEMOGLOBIN 27.8 pg (27.0-33.0); MEAN CORPUSCULAR HGB CONC 31.9 g/dl (32.0-36.5); PLATELET COUNT, AUTOMATED 117 10^3/uL (150-450); RED BLOOD COUNT 3.53 10^6/uL (4.30-6.10); WHITE BLOOD COUNT 2.5 10^3/uL (4.0-10.0)
[2022-12-05 06:50] LABS: BLOOD UREA NITROGEN 11 MG/DL (9-23); CALCIUM LEVEL 7.3 MG/DL (8.5-10.1); CARBON DIOXIDE LEVEL 30 MMOL/L (20-31); CHLORIDE LEVEL 105 MMOL/L (98-107); CREATININE FOR GFR 0.62 MG/DL (0.70-1.30); GLOMERULAR FILTRATION RATE > 60.0 (>56); GLUCOSE, FASTING 145 MG/DL (60-100); POTASSIUM SERUM 3.9 MMOL/L (3.5-5.1); SODIUM LEVEL 140 MMOL/L (136-145)
[2022-12-05 07:30] LABS: ANISOCYTOSIS 1+; ATYPICAL LYMPH 2 % (0-5); EOSINOPHILS 1 % (0-3); LYMPHOCYTES 50 % (16-44); MONOCYTES 24 % (0-5); NEUTROPHILS 22 % (28-66); PLATELET ESTIMATE DECREASED (NORMAL)
[2022-12-05] MEDS: FLUTICASONE PROP 0.05% NASAL SPRAY 16 GM (FLONASE) NARES SCH ×2 (08:15→22:37)
[2022-12-05] MEDS: ENOXAPARIN 40MG/0.4ML SYRINGE (J1650 PER 10MG) SC SCH (08:15)
[2022-12-05] MEDS: levETIRAcetam 250MG TABLET (KEPPRA) PO SCH ×2 (08:15→22:33)
[2022-12-05] MEDS: LACTOBACILLUS ACIDOPHILUS CAP (BACID) PO SCH ×2 (08:16→17:22)
[2022-12-05] MEDS: ACETAMINOPHEN TAB 650MG DOSE (2X325MG) PO PRN (08:16)
[2022-12-05] MEDS: DIVALPROEX 500 MG TAB PO SCH ×2 (08:16→22:34)
[2022-12-05] MEDS: MAGNESIUM OXIDE 400MG TAB (MAG-OX) PO SCH ×2 (08:17→22:33)
[2022-12-05] MEDS: BACTRIM 160MG/800MG DS TAB PO SCH (08:17)
[2022-12-05] MEDS: PANTOPRAZOLE 40MG TAB (PROTONIX) PO SCH (08:17)
[2022-12-05] MEDS: [UNRECOGNIZED DRUG - OTHER] PO SCH (08:18)
[2022-12-05] MEDS: INSULIN LISPRO (NovoLOG) PER UNIT SC SCH ×4 (08:19→22:37)
[2022-12-05] MEDS: LEVEMIR (INSULIN DETEMIR) 1 UNITS/0.01ML SC SCH (08:20)
[2022-12-05 14:00] VITALS: BP 130/67
[2022-12-05] MEDS: REMDESIVIR 100 MG in NS 250 ML IV SCH (17:21)
[2022-12-05 21:39] VITALS: BP 131/68
[2022-12-05] MEDS: cefTRIAXone SOD 2 GM in D5W MINI-BAG PLUS 50 ML IV SCH (22:33)
[2022-12-05] MEDS: OLANZapine 5 MG TAB PO SCH (22:36)
[2022-12-06] MEDS: metroNIDAZOLE (FLAGYL) 500MG TABLET PO SCH ×3 (05:55→21:37)
[2022-12-06] MEDS: SODIUM CHLORIDE 0.9% INJ 10 ML SYR IV SCH ×4 (05:56→22:51)
[2022-12-06 06:00] VITALS: BP 112/61
[2022-12-06 06:46] LABS: BASO % 0.4 % (0.0-1.0); EOS # 0.1 10^3/uL (0.0-0.5); EOS % 3.9 % (0.0-3.0); HEMATOCRIT 34.8 % (42.0-52.0); LYMPH # 1.2 10^3/uL (1.5-5.0); LYMPH % 53.5 % (24.0-44.0); MEAN CORPUSCULAR HEMOGLOBIN 27.6 pg (27.0-33.0); MEAN CORPUSCULAR HGB CONC 31.6 g/dl (32.0-36.5); MEAN CORPUSCULAR VOLUME 87.4 fl (80.0-96.0); MONO # 0.4 10^3/uL (0.0-0.8); MONO % 16.1 % (2.0-8.0); NEUTROPHILS % 25.7 % (36.0-66.0); PLATELET COUNT, AUTOMATED 136 10^3/uL (150-450); RED BLOOD COUNT 3.98 10^6/uL (4.30-6.10); WHITE BLOOD COUNT 2.3 10^3/uL (4.0-10.0)
[2022-12-06 07:17] LABS: MAGNESIUM LEVEL 1.7 MG/DL (1.8-2.4)
[2022-12-06 07:19] LABS: BLOOD UREA NITROGEN 12 MG/DL (9-23); CALCIUM LEVEL 8.1 MG/DL (8.5-10.1); CARBON DIOXIDE LEVEL 29 MMOL/L (20-31); CHLORIDE LEVEL 104 MMOL/L (98-107); GLOMERULAR FILTRATION RATE > 60.0 (>56); GLUCOSE, FASTING 226 MG/DL (60-100); POTASSIUM SERUM 4.4 MMOL/L (3.5-5.1); SODIUM LEVEL 139 MMOL/L (136-145)
[2022-12-06 07:27] LABS: NEUTROPHILS # 0.6 10^3/uL (1.5-8.5)
[2022-12-06] MEDS: MAGNESIUM OXIDE 400MG TAB (MAG-OX) PO SCH ×2 (08:51→21:37)
[2022-12-06] MEDS: ENOXAPARIN 40MG/0.4ML SYRINGE (J1650 PER 10MG) SC SCH (08:51)
[2022-12-06] MEDS: LEVEMIR (INSULIN DETEMIR) 1 UNITS/0.01ML SC SCH (08:51)
[2022-12-06] MEDS: [UNRECOGNIZED DRUG - OTHER] PO SCH (08:52)
[2022-12-06] MEDS: INSULIN LISPRO (NovoLOG) PER UNIT SC SCH ×4 (08:52→21:00)
[2022-12-06] MEDS: BACTRIM 160MG/800MG DS TAB PO SCH (08:53)
[2022-12-06] MEDS: levETIRAcetam 250MG TABLET (KEPPRA) PO SCH ×2 (08:53→21:37)
[2022-12-06] MEDS: ACETAMINOPHEN TAB 650MG DOSE (2X325MG) PO PRN ×2 (08:53→16:45)
[2022-12-06] MEDS: PANTOPRAZOLE 40MG TAB (PROTONIX) PO SCH (08:53)
[2022-12-06] MEDS: DIVALPROEX 500 MG TAB PO SCH ×2 (08:54→21:38)
[2022-12-06] MEDS: FLUTICASONE PROP 0.05% NASAL SPRAY 16 GM (FLONASE) NARES SCH ×2 (08:54→21:38)
[2022-12-06] MEDS: LACTOBACILLUS ACIDOPHILUS CAP (BACID) PO SCH ×2 (08:54→17:30)
[2022-12-06 14:00] VITALS: BP 131/77
[2022-12-06] MEDS: cefTRIAXone SOD 2 GM in D5W MINI-BAG PLUS 50 ML IV SCH (21:32)
[2022-12-06] MEDS: OLANZapine 5 MG TAB PO SCH (21:37)
[2022-12-06 22:00] VITALS: BP 133/74
[2022-12-07] MEDS: metroNIDAZOLE (FLAGYL) 500MG TABLET PO SCH ×3 (05:31→21:20)
[2022-12-07] MEDS: SODIUM CHLORIDE 0.9% INJ 10 ML SYR IV PRN ×2 (05:42→22:44)
[2022-12-07 06:00] VITALS: BP 146/90
[2022-12-07 07:57] LABS: BLOOD UREA NITROGEN 12 MG/DL (9-23); CALCIUM LEVEL 8.3 MG/DL (8.5-10.1); CARBON DIOXIDE LEVEL 32 MMOL/L (20-31); CHLORIDE LEVEL 100 MMOL/L (98-107); CREATININE FOR GFR 0.67 MG/DL (0.70-1.30); GLOMERULAR FILTRATION RATE > 60.0 (>56); GLUCOSE, FASTING 232 MG/DL (60-100); POTASSIUM SERUM 4.2 MMOL/L (3.5-5.1); SODIUM LEVEL 136 MMOL/L (136-145)
[2022-12-07 08:00] LABS: BASO % 0.3 % (0.0-1.0); EOS # 0.1 10^3/uL (0.0-0.5); EOS % 2.8 % (0.0-3.0); HEMATOCRIT 34.5 % (42.0-52.0); HEMOGLOBIN 11.2 g/dl (13.5-17.5); LYMPH # 1.3 10^3/uL (1.5-5.0); LYMPH % 44.3 % (24.0-44.0); MEAN CORPUSCULAR HGB CONC 32.5 g/dl (32.0-36.5); MEAN CORPUSCULAR VOLUME 86.3 fl (80.0-96.0); MONO # 0.6 10^3/uL (0.0-0.8); MONO % 19.9 % (2.0-8.0); NEUTROPHILS % 32.4 % (36.0-66.0); PLATELET COUNT, AUTOMATED 146 10^3/uL (150-450); WHITE BLOOD COUNT 2.9 10^3/uL (4.0-10.0)
[2022-12-07 08:02] LABS: NEUTROPHILS # 0.9 10^3/uL (1.5-8.5)
[2022-12-07] MEDS: LEVEMIR (INSULIN DETEMIR) 1 UNITS/0.01ML SC SCH (08:21)
[2022-12-07] MEDS: [UNRECOGNIZED DRUG - OTHER] PO SCH (08:22)
[2022-12-07] MEDS: INSULIN LISPRO (NovoLOG) PER UNIT SC SCH ×4 (08:22→21:22)
[2022-12-07] MEDS: LACTOBACILLUS ACIDOPHILUS CAP (BACID) PO SCH ×2 (08:23→17:11)
[2022-12-07] MEDS: ENOXAPARIN 40MG/0.4ML SYRINGE (J1650 PER 10MG) SC SCH (08:23)
[2022-12-07] MEDS: VITAMIN D 50,000 UNITS CAPSULE (ERGOCALCIFEROL 1.25MG) PO SCH (08:23)
[2022-12-07] MEDS: BACTRIM 160MG/800MG DS TAB PO SCH (08:23)
[2022-12-07] MEDS: DIVALPROEX 500 MG TAB PO SCH ×2 (08:24→21:21)
[2022-12-07] MEDS: PANTOPRAZOLE 40MG TAB (PROTONIX) PO SCH (08:24)
[2022-12-07] MEDS: FLUTICASONE PROP 0.05% NASAL SPRAY 16 GM (FLONASE) NARES SCH ×2 (08:24→21:35)
[2022-12-07] MEDS: MAGNESIUM OXIDE 400MG TAB (MAG-OX) PO SCH ×2 (08:24→21:20)
[2022-12-07] MEDS: levETIRAcetam 250MG TABLET (KEPPRA) PO SCH ×2 (08:24→21:21)
[2022-12-07 14:00] VITALS: BP 127/80
[2022-12-07] MEDS: SODIUM CHLORIDE 0.9% INJ 10 ML SYR IV SCH ×2 (16:51→17:11)
[2022-12-07] MEDS: CEPACOL LOZENGE PO PRN (21:20)
[2022-12-07] MEDS: OLANZapine 5 MG TAB PO SCH (21:20)
[2022-12-07] MEDS: cefTRIAXone SOD 2 GM in D5W MINI-BAG PLUS 50 ML IV SCH (21:22)
[2022-12-07] MEDS: ACETAMINOPHEN TAB 650MG DOSE (2X325MG) PO PRN (21:37)
[2022-12-08] MEDS: metroNIDAZOLE (FLAGYL) 500MG TABLET PO SCH ×3 (05:24→21:14)
[2022-12-08] MEDS: SODIUM CHLORIDE 0.9% INJ 10 ML SYR IV SCH ×3 (05:25→18:31)
[2022-12-08 06:00] VITALS: BP 114/58
[2022-12-08] MEDS: LEVEMIR (INSULIN DETEMIR) 1 UNITS/0.01ML SC SCH ×2 (08:12→21:15)
[2022-12-08] MEDS: INSULIN LISPRO (NovoLOG) PER UNIT SC SCH ×4 (08:12→21:00)
[2022-12-08] MEDS: [UNRECOGNIZED DRUG - OTHER] PO SCH (08:13)
[2022-12-08] MEDS: levETIRAcetam 250MG TABLET (KEPPRA) PO SCH ×2 (08:13→21:13)
[2022-12-08] MEDS: MAGNESIUM OXIDE 400MG TAB (MAG-OX) PO SCH ×2 (08:14→21:15)
[2022-12-08] MEDS: LACTOBACILLUS ACIDOPHILUS CAP (BACID) PO SCH ×2 (08:14→18:19)
[2022-12-08] MEDS: DIVALPROEX 500 MG TAB PO SCH ×2 (08:14→21:14)
[2022-12-08] MEDS: PANTOPRAZOLE 40MG TAB (PROTONIX) PO SCH (08:14)
[2022-12-08] MEDS: BACTRIM 160MG/800MG DS TAB PO SCH (08:14)
[2022-12-08] MEDS: ENOXAPARIN 40MG/0.4ML SYRINGE (J1650 PER 10MG) SC SCH (08:15)
[2022-12-08] MEDS: FLUTICASONE PROP 0.05% NASAL SPRAY 16 GM (FLONASE) NARES SCH ×2 (08:15→21:15)
[2022-12-08] MEDS: CEPACOL LOZENGE PO PRN (08:22)
[2022-12-08] MEDS: OLANZapine 5 MG TAB PO SCH (21:14)
[2022-12-08] MEDS: cefTRIAXone SOD 2 GM in D5W MINI-BAG PLUS 50 ML IV SCH (21:15)
[2022-12-08] MEDS: ACETAMINOPHEN TAB 650MG DOSE (2X325MG) PO PRN (21:24)
[2022-12-08] MEDS: SODIUM CHLORIDE 0.9% INJ 10 ML SYR IV PRN (22:41)
[2022-12-09 01:16] VITALS: BP 128/76
[2022-12-09 06:14] LABS: BASO % 0.3 % (0.0-1.0); EOS # 0.2 10^3/uL (0.0-0.5); EOS % 4.9 % (0.0-3.0); HEMATOCRIT 33.4 % (42.0-52.0); HEMOGLOBIN 10.7 g/dl (13.5-17.5); LYMPH # 1.9 10^3/uL (1.5-5.0); LYMPH % 47.4 % (24.0-44.0); MEAN CORPUSCULAR HEMOGLOBIN 28.3 pg (27.0-33.0); MEAN CORPUSCULAR VOLUME 88.4 fl (80.0-96.0); MONO # 0.8 10^3/uL (0.0-0.8); MONO % 20.8 % (2.0-8.0); NEUTROPHILS % 25.8 % (36.0-66.0); PLATELET COUNT, AUTOMATED 169 10^3/uL (150-450); RED BLOOD COUNT 3.78 10^6/uL (4.30-6.10); WHITE BLOOD COUNT 3.9 10^3/uL (4.0-10.0)
[2022-12-09] MEDS: metroNIDAZOLE (FLAGYL) 500MG TABLET PO SCH ×3 (06:25→21:11)
[2022-12-09] MEDS: SODIUM CHLORIDE 0.9% INJ 10 ML SYR IV SCH ×3 (06:26→18:33)
[2022-12-09 06:41] LABS: MAGNESIUM LEVEL 1.8 MG/DL (1.8-2.4)
[2022-12-09 06:42] LABS: BLOOD UREA NITROGEN 15 MG/DL (9-23); CALCIUM LEVEL 7.7 MG/DL (8.5-10.1); CARBON DIOXIDE LEVEL 26 MMOL/L (20-31); CHLORIDE LEVEL 102 MMOL/L (98-107); CREATININE FOR GFR 0.66 MG/DL (0.70-1.30); GLOMERULAR FILTRATION RATE > 60.0 (>56); GLUCOSE, FASTING 381 MG/DL (60-100); POTASSIUM SERUM 4.1 MMOL/L (3.5-5.1); SODIUM LEVEL 135 MMOL/L (136-145)
[2022-12-09 07:19] VITALS: BP 116/71
[2022-12-09] MEDS: INSULIN LISPRO (NovoLOG) PER UNIT SC SCH ×4 (08:34→21:13)
[2022-12-09] MEDS: LEVEMIR (INSULIN DETEMIR) 1 UNITS/0.01ML SC SCH ×2 (08:35→21:12)
[2022-12-09] MEDS: ENOXAPARIN 40MG/0.4ML SYRINGE (J1650 PER 10MG) SC SCH (08:35)
[2022-12-09] MEDS: [UNRECOGNIZED DRUG - OTHER] PO SCH (08:35)
[2022-12-09] MEDS: levETIRAcetam 250MG TABLET (KEPPRA) PO SCH ×2 (08:35→21:10)
[2022-12-09] MEDS: PANTOPRAZOLE 40MG TAB (PROTONIX) PO SCH (08:36)
[2022-12-09] MEDS: FLUTICASONE PROP 0.05% NASAL SPRAY 16 GM (FLONASE) NARES SCH ×2 (08:36→21:11)
[2022-12-09] MEDS: DIVALPROEX 500 MG TAB PO SCH ×2 (08:36→21:10)
[2022-12-09] MEDS: BACTRIM 160MG/800MG DS TAB PO SCH (08:36)
[2022-12-09] MEDS: LACTOBACILLUS ACIDOPHILUS CAP (BACID) PO SCH ×2 (08:36→18:31)
[2022-12-09] MEDS: MAGNESIUM OXIDE 400MG TAB (MAG-OX) PO SCH ×2 (08:36→21:11)
[2022-12-09] MEDS: OLANZapine 5 MG TAB PO SCH (21:11)
[2022-12-09] MEDS: cefTRIAXone SOD 2 GM in D5W MINI-BAG PLUS 50 ML IV SCH (21:12)
[2022-12-09] MEDS: SODIUM CHLORIDE 0.9% INJ 10 ML SYR IV PRN (21:13)
[2022-12-10 03:39] VITALS: BP 117/73
[2022-12-10] MEDS: metroNIDAZOLE (FLAGYL) 500MG TABLET PO SCH ×3 (05:36→22:30)
[2022-12-10] MEDS: SODIUM CHLORIDE 0.9% INJ 10 ML SYR IV SCH ×3 (05:37→18:07)
[2022-12-10] MEDS: ENOXAPARIN 40MG/0.4ML SYRINGE (J1650 PER 10MG) SC SCH (08:29)
[2022-12-10] MEDS: LEVEMIR (INSULIN DETEMIR) 1 UNITS/0.01ML SC SCH ×2 (08:30→22:32)
[2022-12-10] MEDS: levETIRAcetam 250MG TABLET (KEPPRA) PO SCH ×2 (08:30→22:30)
[2022-12-10] MEDS: PANTOPRAZOLE 40MG TAB (PROTONIX) PO SCH (08:30)
[2022-12-10] MEDS: DIVALPROEX 500 MG TAB PO SCH ×2 (08:30→22:30)
[2022-12-10] MEDS: BACTRIM 160MG/800MG DS TAB PO SCH (08:30)
[2022-12-10] MEDS: MAGNESIUM OXIDE 400MG TAB (MAG-OX) PO SCH ×2 (08:30→22:31)
[2022-12-10] MEDS: INSULIN LISPRO (NovoLOG) PER UNIT SC SCH ×4 (08:30→22:32)
[2022-12-10] MEDS: LACTOBACILLUS ACIDOPHILUS CAP (BACID) PO SCH ×2 (08:31→18:06)
[2022-12-10] MEDS: FLUTICASONE PROP 0.05% NASAL SPRAY 16 GM (FLONASE) NARES SCH ×2 (08:31→22:31)
[2022-12-10] MEDS: [UNRECOGNIZED DRUG - OTHER] PO SCH (08:31)
[2022-12-10] MEDS: ACETAMINOPHEN TAB 650MG DOSE (2X325MG) PO PRN (18:06)
[2022-12-10] MEDS: cefTRIAXone SOD 2 GM in D5W MINI-BAG PLUS 50 ML IV SCH (22:31)
[2022-12-10] MEDS: OLANZapine 5 MG TAB PO SCH (22:31)
[2022-12-10] MEDS: SODIUM CHLORIDE 0.9% INJ 10 ML SYR IV PRN (22:32)
[2022-12-11] MEDS: SODIUM CHLORIDE 0.9% INJ 10 ML SYR IV SCH ×3 (05:42→18:40)
[2022-12-11] MEDS: metroNIDAZOLE (FLAGYL) 500MG TABLET PO SCH ×3 (05:42→23:07)
[2022-12-11 05:52] LABS: BASO % 0.5 % (0.0-1.0); EOS # 0.2 10^3/uL (0.0-0.5); EOS % 4.4 % (0.0-3.0); HEMATOCRIT 34.8 % (42.0-52.0); HEMOGLOBIN 11.3 g/dl (13.5-17.5); MEAN CORPUSCULAR HEMOGLOBIN 28.3 pg (27.0-33.0); MEAN CORPUSCULAR HGB CONC 32.5 g/dl (32.0-36.5); MEAN CORPUSCULAR VOLUME 87.2 fl (80.0-96.0); MONO % 24.8 % (2.0-8.0); NEUTROPHILS % 17.5 % (36.0-66.0); PLATELET COUNT, AUTOMATED 185 10^3/uL (150-450); RED BLOOD COUNT 3.99 10^6/uL (4.30-6.10); WHITE BLOOD COUNT 3.8 10^3/uL (4.0-10.0)
[2022-12-11 06:09] LABS: BLOOD UREA NITROGEN 11 MG/DL (9-23); CARBON DIOXIDE LEVEL 27 MMOL/L (20-31); CHLORIDE LEVEL 103 MMOL/L (98-107); CREATININE FOR GFR 0.64 MG/DL (0.70-1.30); GLOMERULAR FILTRATION RATE > 60.0 (>56); GLUCOSE, FASTING 288 MG/DL (60-100); POTASSIUM SERUM 4.1 MMOL/L (3.5-5.1); SODIUM LEVEL 136 MMOL/L (136-145)
[2022-12-11 06:24] VITALS: BP 118/57
[2022-12-11 06:32] LABS: NEUTROPHILS # 0.7 10^3/uL (1.5-8.5)
[2022-12-11] MEDS: LEVEMIR (INSULIN DETEMIR) 1 UNITS/0.01ML SC SCH ×2 (10:14→23:08)
[2022-12-11] MEDS: INSULIN LISPRO (NovoLOG) PER UNIT SC SCH ×4 (10:14→21:00)
[2022-12-11] MEDS: levETIRAcetam 250MG TABLET (KEPPRA) PO SCH ×2 (10:15→23:07)
[2022-12-11] MEDS: PANTOPRAZOLE 40MG TAB (PROTONIX) PO SCH (10:15)
[2022-12-11] MEDS: LACTOBACILLUS ACIDOPHILUS CAP (BACID) PO SCH ×2 (10:15→18:38)
[2022-12-11] MEDS: DIVALPROEX 500 MG TAB PO SCH ×2 (10:15→23:06)
[2022-12-11] MEDS: MAGNESIUM OXIDE 400MG TAB (MAG-OX) PO SCH ×2 (10:15→23:07)
[2022-12-11] MEDS: BACTRIM 160MG/800MG DS TAB PO SCH (10:16)
[2022-12-11] MEDS: ENOXAPARIN 40MG/0.4ML SYRINGE (J1650 PER 10MG) SC SCH (10:16)
[2022-12-11] MEDS: [UNRECOGNIZED DRUG - OTHER] PO SCH (10:16)
[2022-12-11] MEDS: FLUTICASONE PROP 0.05% NASAL SPRAY 16 GM (FLONASE) NARES SCH ×2 (10:17→23:07)
[2022-12-11] MEDS: cefTRIAXone SOD 2 GM in D5W MINI-BAG PLUS 50 ML IV SCH (23:07)
[2022-12-11] MEDS: OLANZapine 5 MG TAB PO SCH (23:07)
[2022-12-11] MEDS: SODIUM CHLORIDE 0.9% INJ 10 ML SYR IV PRN (23:08)
[2022-12-12] MEDS: SODIUM CHLORIDE 0.9% INJ 10 ML SYR IV SCH ×2 (05:17→18:00)
[2022-12-12] MEDS: metroNIDAZOLE (FLAGYL) 500MG TABLET PO SCH ×3 (05:17→21:51)
[2022-12-12 06:44] VITALS: BP 134/81
[2022-12-12] MEDS: LACTOBACILLUS ACIDOPHILUS CAP (BACID) PO SCH ×2 (08:00→19:19)
[2022-12-12] MEDS: [UNRECOGNIZED DRUG - OTHER] PO SCH (10:12)
[2022-12-12] MEDS: LEVEMIR (INSULIN DETEMIR) 1 UNITS/0.01ML SC SCH ×2 (10:12→21:51)
[2022-12-12] MEDS: INSULIN LISPRO (NovoLOG) PER UNIT SC SCH ×4 (10:13→21:52)
[2022-12-12] MEDS: levETIRAcetam 250MG TABLET (KEPPRA) PO SCH ×2 (10:14→21:50)
[2022-12-12] MEDS: ENOXAPARIN 40MG/0.4ML SYRINGE (J1650 PER 10MG) SC SCH (10:14)
[2022-12-12] MEDS: DIVALPROEX 500 MG TAB PO SCH ×2 (10:15→21:51)
[2022-12-12] MEDS: MAGNESIUM OXIDE 400MG TAB (MAG-OX) PO SCH ×2 (10:15→21:50)
[2022-12-12] MEDS: BACTRIM 160MG/800MG DS TAB PO SCH (10:15)
[2022-12-12] MEDS: PANTOPRAZOLE 40MG TAB (PROTONIX) PO SCH (10:15)
[2022-12-12] MEDS: FLUTICASONE PROP 0.05% NASAL SPRAY 16 GM (FLONASE) NARES SCH ×2 (10:16→21:52)
[2022-12-12] MEDS: cefTRIAXone SOD 2 GM in D5W MINI-BAG PLUS 50 ML IV SCH (21:49)
[2022-12-12] MEDS: OLANZapine 5 MG TAB PO SCH (21:50)
[2022-12-13] MEDS: metroNIDAZOLE (FLAGYL) 500MG TABLET PO SCH ×3 (05:44→20:35)
[2022-12-13] MEDS: SODIUM CHLORIDE 0.9% INJ 10 ML SYR IV SCH ×2 (05:46→17:10)
[2022-12-13 05:54] VITALS: BP 111/63
[2022-12-13 06:21] LABS: BASO % 0.6 % (0.0-1.0); EOS # 0.2 10^3/uL (0.0-0.5); EOS % 4.4 % (0.0-3.0); HEMOGLOBIN 10.3 g/dl (13.5-17.5); LYMPH # 1.7 10^3/uL (1.5-5.0); LYMPH % 50.4 % (24.0-44.0); MEAN CORPUSCULAR HEMOGLOBIN 28.1 pg (27.0-33.0); MEAN CORPUSCULAR HGB CONC 32.2 g/dl (32.0-36.5); MEAN CORPUSCULAR VOLUME 87.4 fl (80.0-96.0); MONO # 0.8 10^3/uL (0.0-0.8); MONO % 22.7 % (2.0-8.0); NEUTROPHILS % 21.6 % (36.0-66.0); PLATELET COUNT, AUTOMATED 133 10^3/uL (150-450); RED BLOOD COUNT 3.66 10^6/uL (4.30-6.10); WHITE BLOOD COUNT 3.4 10^3/uL (4.0-10.0)
[2022-12-13 06:41] LABS: NEUTROPHILS # 0.7 10^3/uL (1.5-8.5)
[2022-12-13 06:43] LABS: BLOOD UREA NITROGEN 13 MG/DL (9-23); CARBON DIOXIDE LEVEL 28 MMOL/L (20-31); CHLORIDE LEVEL 102 MMOL/L (98-107); CREATININE FOR GFR 0.63 MG/DL (0.70-1.30); GLOMERULAR FILTRATION RATE > 60.0 (>56); GLUCOSE, FASTING 300 MG/DL (60-100); MAGNESIUM LEVEL 1.7 MG/DL (1.8-2.4); POTASSIUM SERUM 4.2 MMOL/L (3.5-5.1); SODIUM LEVEL 136 MMOL/L (136-145)
[2022-12-13] MEDS: LEVEMIR (INSULIN DETEMIR) 1 UNITS/0.01ML SC SCH ×2 (08:17→20:37)
[2022-12-13] MEDS: ENOXAPARIN 40MG/0.4ML SYRINGE (J1650 PER 10MG) SC SCH (08:17)
[2022-12-13] MEDS: INSULIN LISPRO (NovoLOG) PER UNIT SC SCH ×4 (08:17→20:36)
[2022-12-13] MEDS: LACTOBACILLUS ACIDOPHILUS CAP (BACID) PO SCH ×2 (08:18→17:09)
[2022-12-13] MEDS: PANTOPRAZOLE 40MG TAB (PROTONIX) PO SCH (08:18)
[2022-12-13] MEDS: DIVALPROEX 500 MG TAB PO SCH ×2 (08:18→20:35)
[2022-12-13] MEDS: [UNRECOGNIZED DRUG - OTHER] PO SCH (08:18)
[2022-12-13] MEDS: BACTRIM 160MG/800MG DS TAB PO SCH (08:18)
[2022-12-13] MEDS: FLUTICASONE PROP 0.05% NASAL SPRAY 16 GM (FLONASE) NARES SCH ×2 (08:18→20:37)
[2022-12-13] MEDS: MAGNESIUM OXIDE 400MG TAB (MAG-OX) PO SCH ×2 (08:18→20:35)
[2022-12-13] MEDS: levETIRAcetam 250MG TABLET (KEPPRA) PO SCH ×2 (08:18→20:35)
[2022-12-13 14:20] VITALS: BP 130/77
[2022-12-13] MEDS: OLANZapine 5 MG TAB PO SCH (20:35)
[2022-12-13] MEDS: cefTRIAXone SOD 2 GM in D5W MINI-BAG PLUS 50 ML IV SCH (20:36)
[2022-12-14] MEDS: metroNIDAZOLE (FLAGYL) 500MG TABLET PO SCH ×3 (05:26→21:24)
[2022-12-14 06:00] VITALS: BP 124/76
[2022-12-14] MEDS: SODIUM CHLORIDE 0.9% INJ 10 ML SYR IV SCH ×3 (06:56→18:00)
[2022-12-14] MEDS: LACTOBACILLUS ACIDOPHILUS CAP (BACID) PO SCH ×2 (08:16→17:56)
[2022-12-14] MEDS: VITAMIN D 50,000 UNITS CAPSULE (ERGOCALCIFEROL 1.25MG) PO SCH (08:16)
[2022-12-14] MEDS: MAGNESIUM OXIDE 400MG TAB (MAG-OX) PO SCH ×2 (08:17→21:25)
[2022-12-14] MEDS: BACTRIM 160MG/800MG DS TAB PO SCH (08:17)
[2022-12-14] MEDS: ENOXAPARIN 40MG/0.4ML SYRINGE (J1650 PER 10MG) SC SCH (08:17)
[2022-12-14] MEDS: DIVALPROEX 500 MG TAB PO SCH ×2 (08:17→21:25)
[2022-12-14] MEDS: levETIRAcetam 250MG TABLET (KEPPRA) PO SCH ×2 (08:17→21:25)
[2022-12-14] MEDS: PANTOPRAZOLE 40MG TAB (PROTONIX) PO SCH (08:17)
[2022-12-14] MEDS: INSULIN LISPRO (NovoLOG) PER UNIT SC SCH ×4 (08:18→21:23)
[2022-12-14] MEDS: [UNRECOGNIZED DRUG - OTHER] PO SCH (08:18)
[2022-12-14] MEDS: LEVEMIR (INSULIN DETEMIR) 1 UNITS/0.01ML SC SCH ×2 (08:18→21:23)
[2022-12-14] MEDS: FLUTICASONE PROP 0.05% NASAL SPRAY 16 GM (FLONASE) NARES SCH ×2 (08:21→21:26)
[2022-12-14] MEDS ORDERED: MAGNESIUM OXIDE 400MG TAB (MAG-OX) PO ONE (10:00)
[2022-12-14] MEDS: cefTRIAXone SOD 2 GM in D5W MINI-BAG PLUS 50 ML IV SCH (21:22)
[2022-12-14] MEDS: OLANZapine 5 MG TAB PO SCH (21:25)
[2022-12-14] MEDS: SODIUM CHLORIDE 0.9% INJ 10 ML SYR IV PRN (22:40)
[2022-12-15] MEDS: metroNIDAZOLE (FLAGYL) 500MG TABLET PO SCH ×3 (05:24→22:22)
[2022-12-15] MEDS: SODIUM CHLORIDE 0.9% INJ 10 ML SYR IV PRN (05:25)
[2022-12-15] MEDS: SODIUM CHLORIDE 0.9% INJ 10 ML SYR IV SCH ×3 (05:25→18:00)
[2022-12-15 06:00] VITALS: BP 102/61
[2022-12-15 06:45] LABS: BASO % 0.6 % (0.0-1.0); EOS # 0.1 10^3/uL (0.0-0.5); EOS % 3.7 % (0.0-3.0); HEMATOCRIT 34.6 % (42.0-52.0); LYMPH # 1.6 10^3/uL (1.5-5.0); LYMPH % 45.6 % (24.0-44.0); MEAN CORPUSCULAR HEMOGLOBIN 27.8 pg (27.0-33.0); MEAN CORPUSCULAR HGB CONC 31.8 g/dl (32.0-36.5); MEAN CORPUSCULAR VOLUME 87.6 fl (80.0-96.0); MONO # 0.7 10^3/uL (0.0-0.8); MONO % 19.4 % (2.0-8.0); NEUTROPHILS # 1.1 10^3/uL (1.5-8.5); NEUTROPHILS % 30.1 % (36.0-66.0); PLATELET COUNT, AUTOMATED 146 10^3/uL (150-450); RED BLOOD COUNT 3.95 10^6/uL (4.30-6.10); WHITE BLOOD COUNT 3.6 10^3/uL (4.0-10.0)
[2022-12-15 06:52] LABS: ERYTHROCYTE SEDIMENTATION RATE 58 mm/hr (0-20)
[2022-12-15 07:08] LABS: C REACTIVE PROTEIN QUANTITATIV < 0.40 MG/DL (<1.0)
[2022-12-15 07:09] LABS: BLOOD UREA NITROGEN 18 MG/DL (9-23); CALCIUM LEVEL 8.3 MG/DL (8.5-10.1); CARBON DIOXIDE LEVEL 28 MMOL/L (20-31); CHLORIDE LEVEL 99 MMOL/L (98-107); CREATININE FOR GFR 0.65 MG/DL (0.70-1.30); GLOMERULAR FILTRATION RATE > 60.0 (>56); GLUCOSE, FASTING 267 MG/DL (60-100); MAGNESIUM LEVEL 1.9 MG/DL (1.8-2.4); SODIUM LEVEL 135 MMOL/L (136-145)
[2022-12-15] MEDS: FLUTICASONE PROP 0.05% NASAL SPRAY 16 GM (FLONASE) NARES SCH ×2 (08:17→22:25)
[2022-12-15] MEDS: MAGNESIUM OXIDE 400MG TAB (MAG-OX) PO SCH ×2 (08:17→22:21)
[2022-12-15] MEDS: LACTOBACILLUS ACIDOPHILUS CAP (BACID) PO SCH ×2 (08:17→17:34)
[2022-12-15] MEDS: PANTOPRAZOLE 40MG TAB (PROTONIX) PO SCH (08:18)
[2022-12-15] MEDS: levETIRAcetam 250MG TABLET (KEPPRA) PO SCH ×2 (08:18→22:22)
[2022-12-15] MEDS: DIVALPROEX 500 MG TAB PO SCH ×2 (08:19→22:22)
[2022-12-15] MEDS: BACTRIM 160MG/800MG DS TAB PO SCH (08:19)
[2022-12-15] MEDS: INSULIN LISPRO (NovoLOG) PER UNIT SC SCH ×5 (08:19→22:43)
[2022-12-15] MEDS: LEVEMIR (INSULIN DETEMIR) 1 UNITS/0.01ML SC SCH ×2 (08:20→22:23)
[2022-12-15] MEDS: [UNRECOGNIZED DRUG - OTHER] PO SCH (08:20)
[2022-12-15] MEDS: ENOXAPARIN 40MG/0.4ML SYRINGE (J1650 PER 10MG) SC SCH (08:21)
[2022-12-15] MEDS ORDERED: LORazepam 2 MG/ML VIAL IV ONE (20:15)
[2022-12-15 20:53] VITALS: BP 112/62
[2022-12-15] MEDS ORDERED: PROHANCE 279.3MG/ML 5ML VIAL As Ordered ONE (21:23)
[2022-12-15] MEDS ORDERED: PROHANCE 279.3MG/ML 15ML VIAL As Ordered ONE (21:24)
[2022-12-15] MEDS: cefTRIAXone SOD 2 GM in D5W MINI-BAG PLUS 50 ML IV SCH (22:21)
[2022-12-15] MEDS: OLANZapine 5 MG TAB PO SCH (22:22)
[2022-12-16] MEDS: metroNIDAZOLE (FLAGYL) 500MG TABLET PO SCH ×3 (05:49→21:29)
[2022-12-16] MEDS: SODIUM CHLORIDE 0.9% INJ 10 ML SYR IV SCH ×3 (05:50→17:47)
[2022-12-16] MEDS: SODIUM CHLORIDE 0.9% INJ 10 ML SYR IV PRN (05:52)
[2022-12-16 05:57] VITALS: BP 129/72
[2022-12-16 08:00] VITALS: BP 126/72
[2022-12-16] MEDS: BACTRIM 160MG/800MG DS TAB PO SCH (09:45)
[2022-12-16] MEDS: LACTOBACILLUS ACIDOPHILUS CAP (BACID) PO SCH ×2 (09:46→17:45)
[2022-12-16] MEDS: levETIRAcetam 250MG TABLET (KEPPRA) PO SCH ×2 (09:46→21:28)
[2022-12-16] MEDS: MAGNESIUM OXIDE 400MG TAB (MAG-OX) PO SCH ×2 (09:47→21:28)
[2022-12-16] MEDS: PANTOPRAZOLE 40MG TAB (PROTONIX) PO SCH (09:47)
[2022-12-16] MEDS: DIVALPROEX 500 MG TAB PO SCH ×2 (09:47→21:28)
[2022-12-16] MEDS: [UNRECOGNIZED DRUG - OTHER] PO SCH (09:48)
[2022-12-16] MEDS: FLUTICASONE PROP 0.05% NASAL SPRAY 16 GM (FLONASE) NARES SCH ×2 (09:48→21:29)
[2022-12-16] MEDS: ENOXAPARIN 40MG/0.4ML SYRINGE (J1650 PER 10MG) SC SCH (09:49)
[2022-12-16] MEDS: LEVEMIR (INSULIN DETEMIR) 1 UNITS/0.01ML SC SCH ×2 (09:49→21:30)
[2022-12-16] MEDS: INSULIN LISPRO (NovoLOG) PER UNIT SC SCH ×4 (09:50→21:30)
[2022-12-16] MEDS ORDERED: METR-265 PO (14:56)
[2022-12-16] MEDS ORDERED: CEFU50TA PO (14:56)
[2022-12-16] MEDS: OLANZapine 5 MG TAB PO SCH (21:29)
[2022-12-16] MEDS: cefTRIAXone SOD 2 GM in D5W MINI-BAG PLUS 50 ML IV SCH (21:29)
[2022-12-17] MEDS: SODIUM CHLORIDE 0.9% INJ 10 ML SYR IV SCH (05:29)
[2022-12-17] MEDS: SODIUM CHLORIDE 0.9% INJ 10 ML SYR IV PRN (05:30)
[2022-12-17] MEDS: metroNIDAZOLE (FLAGYL) 500MG TABLET PO SCH (05:31)
[2022-12-17 05:32] VITALS: BP 126/72
[2022-12-17] MEDS: MAGNESIUM OXIDE 400MG TAB (MAG-OX) PO SCH (09:00)
[2022-12-17] MEDS: PANTOPRAZOLE 40MG TAB (PROTONIX) PO SCH (09:01)
[2022-12-17] MEDS: ENOXAPARIN 40MG/0.4ML SYRINGE (J1650 PER 10MG) SC SCH (09:01)
[2022-12-17] MEDS: BACTRIM 160MG/800MG DS TAB PO SCH (09:02)
[2022-12-17] MEDS: LACTOBACILLUS ACIDOPHILUS CAP (BACID) PO SCH (09:02)
[2022-12-17] MEDS: levETIRAcetam 250MG TABLET (KEPPRA) PO SCH (09:02)
[2022-12-17] MEDS: LEVEMIR (INSULIN DETEMIR) 1 UNITS/0.01ML SC SCH (09:03)
[2022-12-17] MEDS: DIVALPROEX 500 MG TAB PO SCH (09:03)
[2022-12-17] MEDS: INSULIN LISPRO (NovoLOG) PER UNIT SC SCH (09:04)
[2022-12-17] MEDS: [UNRECOGNIZED DRUG - OTHER] PO SCH (09:05)
[2022-12-17] MEDS: FLUTICASONE PROP 0.05% NASAL SPRAY 16 GM (FLONASE) NARES SCH (09:05)
[2022-12-17] MEDS ORDERED: INSUDET SC (12:03)
[2022-12-17] MEDS ORDERED: GLUC1TES2 XX ×2 (12:05→12:30)
[2022-12-17] MEDS ORDERED: PEN1MIS21 SC ×3 (12:05→12:30)
[2022-12-17] MEDS ORDERED: METF-877 PO ×3 (12:05→13:15)
[2022-12-17] MEDS ORDERED: LANC30MI XX ×2 (12:05→12:08)
[2022-12-17] MEDS ORDERED: ALCOPAD25 TOP ×2 (12:05→12:30)
[2022-12-17] MEDS ORDERED: INSU1MIS20 SC ×2 (12:05→12:08)
[2022-12-17] MEDS ORDERED: BLOOKIT21 XX (12:05)
[2022-12-17] MEDS ORDERED: LEVE250T5 PO (12:19)
[2022-12-17] MEDS ORDERED: DEPA1TAB3 PO (12:19)
[2022-12-17] MEDS ORDERED: KEPP10002 PO ×2 (12:19→12:21)
[2022-12-17] MEDS ORDERED: KEPP250T5 PO (12:21)
[2022-12-17] MEDS ORDERED: INSU100I48 SQ (12:28)
[2022-12-17] MEDS ORDERED: CEFD300C41 PO ×2 (12:40→12:43)
[2022-12-17] MEDS ORDERED: METR-265 PO ×2 (12:40→12:43)
[2022-12-18 06:08] LABS: % CD8 Pos Lymph 55.8 % (12.0-35.5); %CD4 Pos Lymphs 16.5 % (30.8-58.5); ABS Eosinophils 0.2 x10E3/uL (0.0-0.4); ABS Lymphs 1.6 x10E3/uL (0.7-3.1); ABS Monocytes 0.7 x10E3/uL (0.1-0.9); ABS Neutophils 1.2 x10E3/uL (1.4-7.0); Abs CD4 Helper 264 /uL (359-1519); Abs CD8 Suppres 893 /uL (109-897); Eosinophils 4 % (Not Estab.); HCT 34.6 % (37.5-51.0); HGB 11.5 g/dL (13.0-17.7); HIV-1 RNA PCR QUANT 2 LC550285 30 copies/mL (.); HIV-1 RNA PCR QUANT 3 LC550285 1.477 (.); Immature Grans 0 % (Not Estab.); Lymphocytes 44 % (Not Estab.); MCH 28.3 pg (26.6-33.0); MCHC 33.2 g/dL (31.5-35.7); MCV 85 fL (79-97); Monocytes 18 % (Not Estab.); Neutrophils 33 % (Not Estab.); Platelets 155 x10E3/uL (150-450); RBC 4.06 x10E6/uL (4.14-5.80); RDW 14.3 % (11.6-15.4); WBC 3.7 x10E3/uL (3.4-10.8)
== END 2022-12-17 12:10 | disposition home or self-care (01) | DRG 94 ==
LOC: M ED 16:24 → M ED INP 21:28 → ENRESERV 23:18 → M MS5PR 11-30 00:05
PROVIDERS: ADMIT Family Medicine; ATTEND General Practice
PROC: XW033E5 Introduction of Remdesivir Anti-infective into Peripheral Vein, Percutaneous Approach, New Technology Group 5 (ICD-10-PCS; 2022-12-01)
PROC: 02HV33Z Insertion of Infusion Device into Superior Vena Cava, Percutaneous Approach (ICD-10-PCS; principal; 2022-12-01 16:00)
DX: G06.0 Intracranial abscess and granuloma (principal); U07.1 COVID-19; B20 Human immunodeficiency virus [HIV] disease; E11.65 Type 2 diabetes mellitus with hyperglycemia; F14.10 Cocaine abuse, uncomplicated; G40.909 Epilepsy, unspecified, not intractable, without status epilepticus; F43.10 Post-traumatic stress disorder, unspecified; F90.9 Attention-deficit hyperactivity disorder, unspecified type; G47.33 Obstructive sleep apnea (adult) (pediatric); Z85.048 Personal history of other malignant neoplasm of rectum, rectosigmoid junction, and anus; Z79.899 Other long term (current) drug therapy; D64.9 Anemia, unspecified; E83.42 Hypomagnesemia; F11.10 Opioid abuse, uncomplicated; F32.A Depression, unspecified; E55.9 Vitamin D deficiency, unspecified; H43.811 Vitreous degeneration, right eye; B95.5 Unspecified streptococcus as the cause of diseases classified elsewhere; Z91.199 Patient's noncompliance with other medical treatment and regimen due to unspecified reason

== ENCOUNTER 2023-04-02 17:07 | Emergency (ER) | payer MEDICARE, OTHER ==
[~2023-04-02] VITALS: Ht 177.8 cm; Wt 114.6 kg
[~2023-04-02 17:07] MED LIST changes: +ALCOPAD25 TOP; +BIKT1TAB PO; +BLOOKIT21 XX; +CARE1KIT XX; +CEFD300C41 PO; +CEFU50TA PO; +DEPA1TAB3 PO; +DIVA500T94 PO; +ERGO500029 PO; +GLUC1TES2 XX; +INSU100I48 SQ; +INSU1MIS20 SC; +INSUDET SC; +IPRA0.00 NEB; +KEPP10002 PO; +LANC30MI XX; +LEVE250T5 PO; +LEVE500T5 PO; +METF-877 PO; +METR-265 PO; +OLAN1TAB16 PO; +PANT-23 PO; +PEN1MIS21 SC; +[UNRECOGNIZED DRUG - CODE] XX
[2023-04-02] MEDS ORDERED: METOCLOPRAMIDE 10MG TAB PO ONE (17:55)
[2023-04-02] MEDS ORDERED: KETOROLAC 30 MG/ML 1ML VIAL IM STA (17:57)
[2023-04-02 18:15] VITALS: BP 143/88
[2023-04-02 18:43] VITALS: BP 139/75
[2023-04-03] MEDS ORDERED: CLONI1TA PO ×2 (16:16→16:45)
== END 2023-04-02 18:44 | disposition home or self-care (01) ==
LOC: M ED 17:07
DX: F11.23 Opioid dependence with withdrawal (principal); E11.9 Type 2 diabetes mellitus without complications; F43.10 Post-traumatic stress disorder, unspecified; F32.A Depression, unspecified; G47.33 Obstructive sleep apnea (adult) (pediatric); Z21 Asymptomatic human immunodeficiency virus [HIV] infection status; Z85.048 Personal history of other malignant neoplasm of rectum, rectosigmoid junction, and anus
CPT/HCPCS: 96372; 99283; J1885

== ENCOUNTER 2023-04-03 13:39 | Emergency (ER) | payer MEDICARE, OTHER ==
[~2023-04-03] VITALS: Ht 177.8 cm; Wt 113.5 kg
[~2023-04-03 13:39] MED LIST changes: -CLONI1TA PO
[2023-04-03] MEDS ORDERED: ACETAMINOPHEN TAB 650MG DOSE (2X325MG) PO ONE (15:10)
[2023-04-03] MEDS ORDERED: ONDANSETRON 4MG ORAL DISINTEGRATING TAB PO ONE (15:20)
[2023-04-03 15:33] LABS: HEMATOCRIT 39.9 % (42.0-52.0); MEAN CORPUSCULAR HEMOGLOBIN 29.2 pg (27.0-33.0); MEAN CORPUSCULAR HGB CONC 35.1 g/dl (32.0-36.5); MEAN CORPUSCULAR VOLUME 83.3 fl (80.0-96.0); PLATELET COUNT, AUTOMATED 171 10^3/uL (150-450); RED BLOOD COUNT 4.79 10^6/uL (4.30-6.10); WHITE BLOOD COUNT 4.7 10^3/uL (4.0-10.0)
[2023-04-03 15:52] LABS: AMPHETAMINES LEVEL URINE NEGATIVE (NEGATIVE); BARBITURATES URINE NEGATIVE (NEGATIVE); BENZODIAZEPINES URINE NEGATIVE (NEGATIVE); METHADONE URINE NEGATIVE (NEGATIVE); OPIATES URINE NEGATIVE (NEGATIVE); PHENCYCLIDINE URINE NEGATIVE (NEGATIVE)
[2023-04-03 15:53] LABS: CANNABINOIDS URINE POSITIVE (NEGATIVE); COCAINE METABOLITE URINE POSITIVE (NEGATIVE)
[2023-04-03 15:54] LABS: ETHYL ALCOHOL (ETHANOL) < 0.003 % (0.000-0.010)
[2023-04-03 15:55] LABS: ACETAMINOPHEN LEVEL < 2.0 UG/ML (10.0-20.0); ALBUMIN 3.3 G/DL (3.2-5.2); ALKALINE PHOSPHATASE 124 U/L (46-116); ALT/SGPT 14 U/L (7.0-40); AST/SGOT 19 U/L (<34); BILIRUBIN,DIRECT 0.2 MG/DL (<0.4); BILIRUBIN,TOTAL 0.5 MG/DL (0.3-1.2); BLOOD UREA NITROGEN 13 MG/DL (9-23); CALCIUM LEVEL 8.6 MG/DL (8.5-10.1); CARBON DIOXIDE LEVEL 25 MMOL/L (20-31); CHLORIDE LEVEL 108 MMOL/L (98-107); CREATININE FOR GFR 0.71 MG/DL (0.70-1.30); GLOMERULAR FILTRATION RATE > 60.0 (>56); GLUCOSE, FASTING 118 MG/DL (60-100); POTASSIUM SERUM 3.8 MMOL/L (3.5-5.1); SALICYLATE LEVEL < 3.0 MG/DL (<30); SODIUM LEVEL 142 MMOL/L (136-145); TOTAL PROTEIN 7.3 G/DL (5.7-8.2)
[2023-04-03 15:57] LABS: THYROID STIMULATING HORMONE 1.126 uIU/ML (0.55-4.78)
[2023-04-03] MEDS ORDERED: cloNIDine 0.1MG TABLET PO ONE (16:15)
[2023-04-03] MEDS ORDERED: CLONI1TA PO ×2 (16:16→16:45)
[2023-04-03 16:22] VITALS: BP 159/89
[2023-04-03 16:35] VITALS: BP 139/68
== END 2023-04-03 16:52 | disposition home or self-care (01) ==
LOC: M ED 13:39
DX: F11.23 Opioid dependence with withdrawal (principal); E10.9 Type 1 diabetes mellitus without complications; I10 Essential (primary) hypertension; G62.9 Polyneuropathy, unspecified; Z21 Asymptomatic human immunodeficiency virus [HIV] infection status; Z85.048 Personal history of other malignant neoplasm of rectum, rectosigmoid junction, and anus

== ENCOUNTER → 2023-04-03 | Outpatient (CLI) | payer MEDICARE, OTHER ==
[~2023-04-03] MED LIST changes: +CLONI1TA PO
== END ==
LOC: M OUTALCOH 12:27
PROVIDERS: ATTEND Psychiatry & Neurology Psychiatry
DX: Z53.8 Procedure and treatment not carried out for other reasons (principal)

== ENCOUNTER 2023-07-06 18:32 | Emergency (ER) | payer OTHER ==
[~2023-07-06] VITALS: Ht 177.8 cm; Wt 100.0 kg
[~2023-07-06 18:32] MED LIST changes: +CLONI1TA PO
[2023-07-06 18:33] VITALS: BP 147/78; TEMP 98.8; O2SAT 98
== END 2023-07-06 21:40 | disposition home or self-care (01) ==
LOC: M ED 18:32
DX: S82.62XA Displaced fracture of lateral malleolus of left fibula, initial encounter for closed fracture (principal); G40.909 Epilepsy, unspecified, not intractable, without status epilepticus; G47.30 Sleep apnea, unspecified; I10 Essential (primary) hypertension; F19.10 Other psychoactive substance abuse, uncomplicated; E11.9 Type 2 diabetes mellitus without complications; Z85.040 Personal history of malignant carcinoid tumor of rectum; Z79.4 Long term (current) use of insulin; Z79.899 Other long term (current) drug therapy

== ENCOUNTER → 2023-07-08 | Outpatient (CLI) | payer OTHER | LOC: M SOG 11:30 | PROVIDERS: ATTEND Orthopaedic Surgery | DX: S82.62XA Displaced fracture of lateral malleolus of left fibula, initial encounter for closed fracture (principal); W18.30XA Fall on same level, unspecified, initial encounter; Y92.009 Unspecified place in unspecified non-institutional (private) residence as the place of occurrence of the external cause ==

== ENCOUNTER → 2023-07-16 | Outpatient (CLI) | payer OTHER | LOC: M SOG 15:52 | PROVIDERS: ATTEND Orthopaedic Surgery | DX: S82.62XA Displaced fracture of lateral malleolus of left fibula, initial encounter for closed fracture (principal); W18.30XA Fall on same level, unspecified, initial encounter; Y92.009 Unspecified place in unspecified non-institutional (private) residence as the place of occurrence of the external cause ==

== ENCOUNTER → 2023-08-03 | Outpatient (CLI) | payer OTHER | LOC: M SOG 07:58 | PROVIDERS: ATTEND Orthopaedic Surgery | DX: S82.62XD Displaced fracture of lateral malleolus of left fibula, subsequent encounter for closed fracture with routine healing (principal) ==